=== PATIENT | male | born 1940 | race Caucasian/White ===

== ENCOUNTER 2018-08-31 09:26 | Day surgery (SDC) | payer MEDICARE, BC ==
[~2018-08-31 09:26] MED LIST: DEXAMETHASONE SOD PHOSPHATE 10 MG/ML 1 ML VIAL IV ONE; HYDROmorphone 0.5 MG/0.5 ML SYRINGE IVP PRN; LACTATED RINGERS 1,000 ML IV SCH; LIDOCAINE 1% 20 ML VIAL (10MG/ML) FOR IV START INTRADERMA PRN; ONDANSETRON 4 MG/2 ML VIAL IVP ONE; SCOPOLAMINE 1.5MG/72HR PATCH TRANSDERM ONE
[2018-08-31 09:55] VITALS: RESP 18; TEMP 97.5
[2018-08-31 10:07] LABS: Glucose,Whole Blood 144 mg/dL (75-99)
[2018-08-31] MEDS ORDERED: LIDOCAINE 1% INJ 10MG/ML (20 ML MDV) ONE (11:06)
[2018-08-31] MEDS ORDERED: PROPOFOL 10 MG/ML 20 ML VIAL IV ONE (11:06)
--- NOTE | 2018-08-31 11:11 | P.GSHP ---
History of Present Illness H&P Date: 08/31/18 Chief Complaint: GI bleed This is a 78-year-old male who presents today for colonoscopy. Patient's had issues with rectal bleeding. Past Medical History Past Medical History: Cancer, Diabetes Mellitus, Hyperlipidemia, Hypertension Additional Past Medical History / Comment(s): BASAL CELL History of Any Multi-Drug Resistant Organisms: None Reported Past Surgical History: Hernia Repair Additional Past Surgical History / Comment(s): RIGHT EAR & RIGHT KNEE BASAL CELL. PILONIDAL CYST. UMB HERNIA Past Anesthesia/Blood Transfusion Reactions: No Reported Reaction Past Psychological History: No Psychological Hx Reported Smoking Status: Former smoker Past Alcohol Use History: None Reported Additional Past Alcohol Use History / Comment(s): SMOKED FOR ABOUT 10 YRS, LESS THAN .5 PPD. QUIT ABOUT 30 YRS. Past Drug Use History: None Reported Medications and Allergies Home Medications Medication Instructions Recorded Confirmed Type Irbesartan [Avapro] 150 mg PO BID 08/29/18 08/29/18 History Magnesium 400 mg PO DAILY 08/29/18 08/29/18 History Metoprolol Tartrate 25 mg PO BID 08/29/18 08/29/18 History Multivitamins, Thera [Multivitamin 1 tab PO DAILY 08/29/18 08/29/18 History (formulary)] [place]-3 Fatty Acids/Fish Oil [Fish 1 cap PO DAILY 08/29/18 08/29/18 History Oil 1,000 mg Softgel] Simvastatin [Zocor] 10 mg PO Q48H 08/29/18 08/29/18 History Vitamin E (Dl,Tocopheryl Acet) 400 mg PO Q48H 08/29/18 08/29/18 History [Vitamin E] amLODIPine [Norvasc] 5 mg PO BID 08/29/18 08/29/18 History cloNIDine 0.1 MG/24HR PATCH 0.1 mg TOPICAL TAY 08/29/18 08/31/18 History [Catapres-TTS] clonazePAM [KlonoPIN] 0.5 mg PO HS PRN 08/29/18 08/29/18 History hydrALAZINE HCL 10 mg PO BID 08/29/18 08/29/18 History metFORMIN HCL 500 mg PO BID 08/29/18 08/29/18 History Allergies Allergy/AdvReac Type Severity Reaction Status Date / Time No Known Allergies Allergy Verified 08/29/18 12:52 Surgical - Exam Vital Signs Temp Pulse Resp BP Pulse Ox 97.5 F L 81 18 177/77 97 08/31/18 09:53 08/31/18 09:53 08/31/18 09:53 08/31/18 09:53 08/31/18 09:53 - General well developed, no distress - Eyes PERRL - ENT normal pinna - Neck no masses - Respiratory normal expansion - Cardiovascular Rhythm: regular - Abdomen Abdomen: soft, non tender Results - Labs Abnormal Lab Results - Last 24 Hours (Table) 08/31/18 Range/Units 09:59 POC Glucose (mg/dL) 144 H (75-99) mg/dL Assessment and Plan Assessment: GI bleed. We'll perform colonoscopy.
--- NOTE | 2018-08-31 11:24 | P.OP ---
Date of Procedure: 08/31/18 Preoperative Diagnosis: GI bleed Postoperative Diagnosis: Diverticulosis Internal hemorrhoids Procedure(s) Performed: Colonoscopy Anesthesia: MAC Surgeon: Lloyd Levy Pathology: none sent Condition: stable Disposition: PACU Description of Procedure: Patient's placed on the endoscopy table in the lateral position. He received IV sedation. Digital rectal exam was performed. The prostate was symmetrical. There was some minimal internal hemorrhoids. Flexible colonoscope was then placed patient anus passed throughout the entire colon. The ileocecal valve was visualized. Cecum, ascending and transverse colon appeared normal. In the descending and sigmoid colon there is mild diverticular changes. There is no evidence of any diverticulitis or diverticular bleeding. The scope was then brought back the rectum and this appeared normal. Scope was withdrawn for patient. There is no evidence of any active GI bleed. It is presumed in the patient's previous GI bleed was due to internal hemorrhoids.
[2018-08-31 11:52] VITALS: BP 133/70; PULSE 56
[2018-08-31 12:20] LABS: Glucose,Whole Blood 112 mg/dL (75-99)
== END 2018-08-31 12:40 | disposition home or self-care (01) ==
LOC: ORWHC2ENDO 09:26
PROVIDERS: ATTEND Surgery
DX: K57.30 Diverticulosis of large intestine without perforation or abscess without bleeding (principal); E11.9 Type 2 diabetes mellitus without complications; E78.5 Hyperlipidemia, unspecified; K64.8 Other hemorrhoids; Z87.891 Personal history of nicotine dependence; I10 Essential (primary) hypertension; Z79.84 Long term (current) use of oral hypoglycemic drugs; Z79.899 Other long term (current) drug therapy
CPT/HCPCS: 45378; J2001; J2704

== ENCOUNTER 2022-08-09 15:07 | Inpatient (IN) | payer MEDICARE, BC ==
[2022-08-09] MEDS ORDERED: methylPREDNISolone SOD SUCCI 125 MG/2 ML VIAL IV STA (15:23)
[2022-08-09] MEDS ORDERED: IPRATROPIUM-ALBUTEROL 3 ML NEB INHALATION STA (15:23)
--- NOTE | 2022-08-09 15:28 | ED ---
General Adult HPI - General Chief complaint: Shortness of Breath Stated complaint: Dyspnea Time Seen by Provider: 08/09/22 15:12 Source: patient, family, RN notes reviewed Mode of arrival: wheelchair Limitations: physical limitation - History of Present Illness Initial comments: Patient is a pleasant 82-year-old male presenting to the emergency department with difficulty breathing. Onset of symptoms was a couple weeks ago, progressively worsening. Patient does have cough. Patient did cough up some blood-tinged sputum today. 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 Patient states his breathing is worse than normal. No chest pain. No fever today. Patient did have fever yesterday. - Related Data Home Medications Medication Instructions Recorded Confirmed Magnesium 400 mg PO DAILY@0800 08/29/18 08/09/22 Metoprolol Tartrate 25 mg PO BID@08/29/18 08/09/22 Vitamin E (Dl,Tocopheryl Acet) 400 mg PO DAILY@0800 08/29/18 08/09/22 [Vitamin E] amLODIPine [Norvasc] 5 mg PO BID@08/29/18 08/09/22 cloNIDine 0.1 MG/24HR PATCH 0.1 mg TOPICAL TAY@199908/29/18 08/09/22 [Catapres-TTS] clonazePAM [KlonoPIN] 0.5 mg PO HS@1999 PRN 08/29/18 08/09/22 Alpha Lipoic Acid 200 mg PO DAILY@0808/09/22 08/09/22 Ascorbic Acid [Vitamin C] 1,500 mg PO DAILY@79908/09/22 08/09/22 Cholecalciferol [Vitamin D3 (125 125 mcg PO DAILY@79908/09/22 08/09/22 Mcg = 5000 Iu)] Cyanocobalamin (Vitamin B-12) 3,000 mcg PO DAILY@0800 08/09/22 08/09/22 [Vitamin B-12] Fish Oil/Dha/Epa [Fish Oil 1,200 1 cap PO DAILY@0800 08/09/22 08/09/22 mg Fish Oil] Garlic 1,000 mg PO DAILY@0800 08/09/22 08/09/22 Hydrocortisone Cream 1 applic TOPICAL BID PRN 08/09/22 08/09/22 [Hydrocortisone 2.5% Cream] Irbesartan 300 mg PO DAILY@0800 08/09/22 08/09/22 Rosuvastatin [Crestor] 20 mg PO TAY@0808/09/22 08/09/22 Saw [place] 450mg 450 mg PO DAILY@0808/09/22 08/09/22 Ubidecarenone [Coenzyme Q10] 200 mg PO DAILY@0808/09/22 08/09/22 hydrALAZINE HCL [Apresoline] 50 mg PO BID@08,199908/09/22 08/09/22 hydroCHLOROthiazide 12.5 mg PO DAILY@0808/09/22 08/09/22 metFORMIN HCL ER [Glucophage XR] 1,500 mg PO W/SUPPER 08/09/22 08/09/22 Allergies Allergy/AdvReac Type Severity Reaction Status Date / Time No Known Allergies Allergy Verified 08/09/22 16:46 Review of Systems ROS Statement: Those systems with pertinent positive or pertinent negative responses have been documented in the HPI. ROS Other: All systems not noted in ROS Statement are negative. Constitutional: Reports: as per HPI Eyes: Denies: eye pain ENT: Denies: ear pain Respiratory: Reports: as per HPI, cough, dyspnea Cardiovascular: Denies: chest pain Endocrine: Reports: fatigue Gastrointestinal: Denies: abdominal pain Genitourinary: Denies: dysuria Musculoskeletal: Denies: back pain Skin: Denies: rash Neurological: Denies: weakness Past Medical History Past Medical History: Cancer, Diabetes Mellitus, Hyperlipidemia, Hypertension Additional Past Medical History / Comment(s): BASAL CELL ASBESTOSIS History of Any Multi-Drug Resistant Organisms: None Reported Past Surgical History: Hernia Repair Additional Past Surgical History / Comment(s): RIGHT EAR & RIGHT KNEE BASAL CELL. PILONIDAL CYST. UMB HERNIA Past Anesthesia/Blood Transfusion Reactions: No Reported Reaction Past Psychological History: No Psychological Hx Reported Past Alcohol Use History: None Reported Past Drug Use History: None Reported General Exam Limitations: no limitations General appearance: alert, in no apparent distress Head exam: Present: normocephalic Eye exam: Present: normal appearance Neck exam: Present: normal inspection Respiratory exam: Present: respiratory distress, wheezes, decreased breath sounds Cardiovascular Exam: Present: tachycardia GI/Abdominal exam: Present: soft. Absent: tenderness Extremities exam: Present: normal inspection. Absent: pedal edema, calf tenderness Neurological exam: Present: alert Psychiatric exam: Present: normal affect, normal mood Skin exam: Present: normal color Course Vital Signs 08/09/22 08/09/22 08/09/22 15:08 15:25 15:29 Temperature 97.9 F Pulse Rate 104 H 88 Respiratory 26 H Rate Blood Pressure 186/88 O2 Sat by Pulse 54 L Oximetry Fraction of 100 Inspired Oxygen (FIO2) 08/09/22 08/09/22 08/09/22 15:37 15:45 16:15 Temperature Pulse Rate 90 90 83 Respiratory 30 H 31 H Rate Blood Pressure 150/71 136/64 O2 Sat by Pulse 95 96 Oximetry Fraction of Inspired Oxygen (FIO2) 08/09/22 17:04 Temperature Pulse Rate Respiratory Rate Blood Pressure O2 Sat by Pulse Oximetry Fraction of 50 Inspired Oxygen (FIO2) EKG Findings - EKG Comments: EKG Findings:: Sinus rhythm 99. MD 144. QRS 86. QT 342. QTC 398. Normal axis. Normal QRS. No acute ST change. EKG is interpreted by myself. - EKG Results: EKG: interpreted by DALILA Medical Decision Making - Medical Decision Making Patient reevaluated and significantly improved with BiPAP. Patient and family updated on results and plan. Case was discussed with Dr. Cerda, who will admit covering hospital call. - Lab Data Result diagrams: 08/09/22 15:31 08/09/22 15:31 Lab Results 08/09/22 08/09/22 08/09/22 Range/Units 15:31 15:31 15:31 WBC 9.5 (3.8-10.6) k/uL RBC 4.98 (4.30-5.90) m/uL Hgb 14.9 (13.0-17.5) gm/dL Hct 44.2 (39.0-53.0) % MCV 88.8 (80.0-100.0) fL MCH 29.8 (25.0-35.0) pg MCHC 33.6 (31.0-37.0) g/dL RDW 13.0 (11.5-15.5) % Plt Count 159 (150-450) k/uL MPV 9.0 Neutrophils % 82 % Lymphocytes % 9 % Monocytes % 7 % Eosinophils % 1 % Basophils % 1 % Neutrophils # 7.7 (1.3-7.7) k/uL Lymphocytes # 0.8 L (1.0-4.8) k/uL Monocytes # 0.7 (0-1.0) k/uL Eosinophils # 0.0 (0-0.7) k/uL Basophils # 0.1 (0-0.2) k/uL PT 10.5 (9.0-12.0) sec INR 1.0 (<1.2) APTT 23.0 (22.0-30.0) sec D-Dimer 1.11 H (<0.60) mg/L FEU Sodium 135 L (137-145) mmol/L Potassium 4.0 (3.5-5.1) mmol/L Chloride 100 (98-107) mmol/L Carbon Dioxide 22 (22-30) mmol/L Anion Gap 13 mmol/L BUN 15 (9-20) mg/dL Creatinine 0.83 (0.66-1.25) mg/dL Est GFR (CKD-EPI)AfAm >90 (>60 ml/min/1.73 sqM) Est GFR (CKD-EPI)NonAf 83 (>60 ml/min/1.73 sqM) Glucose 248 H (74-99) mg/dL Plasma Lactic Acid Leonides (0.7-2.0) mmol/L Calcium 8.8 (8.4-10.2) mg/dL Total Bilirubin 1.7 H (0.2-1.3) mg/dL AST 45 (17-59) U/L ALT 34 (4-49) U/L Alkaline Phosphatase 129 H (38-126) U/L Troponin I (0.000-0.034) ng/mL Total Protein 7.5 (6.3-8.2) g/dL Albumin 4.8 (3.5-5.0) g/dL Coronavirus (PCR) (Not Detectd) Influenza Type A RNA (Not Detectd) Influenza Type B (PCR) (Not Detectd) 08/09/22 08/09/22 08/09/22 Range/Units 15:31 15:31 15:31 WBC (3.8-10.6) k/uL RBC (4.30-5.90) m/uL Hgb (13.0-17.5) gm/dL Hct (39.0-53.0) % MCV (80.0-100.0) fL MCH (25.0-35.0) pg MCHC (31.0-37.0) g/dL RDW (11.5-15.5) % Plt Count (150-450) k/uL MPV Neutrophils % % Lymphocytes % % Monocytes % % Eosinophils % % Basophils % % Neutrophils # (1.3-7.7) k/uL Lymphocytes # (1.0-4.8) k/uL Monocytes # (0-1.0) k/uL Eosinophils # (0-0.7) k/uL Basophils # (0-0.2) k/uL PT (9.0-12.0) sec INR (<1.2) APTT (22.0-30.0) sec D-Dimer (<0.60) mg/L FEU Sodium (137-145) mmol/L Potassium (3.5-5.1) mmol/L Chloride (98-107) mmol/L Carbon Dioxide (22-30) mmol/L Anion Gap mmol/L BUN (9-20) mg/dL Creatinine (0.66-1.25) mg/dL Est GFR (CKD-EPI)AfAm (>60 ml/min/1.73 sqM) Est GFR (CKD-EPI)NonAf (>60 ml/min/1.73 sqM) Glucose (74-99) mg/dL Plasma Lactic Acid [place] 3.2 H* (0.7-2.0) mmol/L Calcium (8.4-10.2) mg/dL Total Bilirubin (0.2-1.3) mg/dL AST (17-59) U/L ALT (4-49) U/L Alkaline Phosphatase (38-126) U/L Troponin I <0.012 (0.000-0.034) ng/mL Total Protein (6.3-8.2) g/dL Albumin (3.5-5.0) g/dL Coronavirus (PCR) (Not Detectd) Influenza Type A RNA Not Detected (Not Detectd) Influenza Type B (PCR) Not Detected (Not Detectd) 08/09/22 Range/Units 15:31 WBC (3.8-10.6) k/uL RBC (4.30-5.90) m/uL Hgb (13.0-17.5) gm/dL Hct (39.0-53.0) % MCV (80.0-100.0) fL MCH (25.0-35.0) pg MCHC (31.0-37.0) g/dL RDW (11.5-15.5) % Plt Count (150-450) k/uL MPV Neutrophils % % Lymphocytes % % Monocytes % % Eosinophils % % Basophils % % Neutrophils # (1.3-7.7) k/uL Lymphocytes # (1.0-4.8) k/uL Monocytes # (0-1.0) k/uL Eosinophils # (0-0.7) k/uL Basophils # (0-0.2) k/uL PT (9.0-12.0) sec INR (<1.2) APTT (22.0-30.0) sec D-Dimer (<0.60) mg/L FEU Sodium (137-145) mmol/L Potassium (3.5-5.1) mmol/L Chloride (98-107) mmol/L Carbon Dioxide (22-30) mmol/L Anion Gap mmol/L BUN (9-20) mg/dL Creatinine (0.66-1.25) mg/dL Est GFR (CKD-EPI)AfAm (>60 ml/min/1.73 sqM) Est GFR (CKD-EPI)NonAf (>60 ml/min/1.73 sqM) Glucose (74-99) mg/dL Plasma Lactic Acid [place] (0.7-2.0) mmol/L Calcium (8.4-10.2) mg/dL Total Bilirubin (0.2-1.3) mg/dL AST (17-59) U/L ALT (4-49) U/L Alkaline Phosphatase (38-126) U/L Troponin I (0.000-0.034) ng/mL Total Protein (6.3-8.2) g/dL Albumin (3.5-5.0) g/dL Coronavirus (PCR) Detected A (Not Detectd) Influenza Type A RNA (Not Detectd) Influenza Type B (PCR) (Not Detectd) - Radiology Data Radiology results: report reviewed (CT chest shows extensive pulmonary infiltrates, nonspecific. Pulmonary emphysema. No pulmonary embolism.) Interpreted by me: Chest x-ray shows severe pulmonary interstitial changes. Critical Care Time Critical Care Time: Yes Total Critical Care Time: 33 Disposition Clinical Impression: COVID-19, Respiratory failure Disposition: ADMITTED IP TO THIS HOSP Is patient prescribed a controlled substance at d/c from ED?: No Referrals: Dave Rosas MD [Primary Care Provider] - 1-2 days Time of Disposition: 17:57
[2022-08-09 15:46] LABS: Basophils # (A) 0.1 k/uL (0-0.2); Basophils % (A) 1 %; Eosinophils % (A) 1 %; HCT 44.2 % (39.0-53.0); HGB 14.9 gm/dL (13.0-17.5); Lymphocytes # (A) 0.8 k/uL (1.0-4.8); Lymphocytes % (A) 9 %; MCH 29.8 pg (25.0-35.0); MCHC 33.6 g/dL (31.0-37.0); MCV 88.8 fL (80.0-100.0); Monocytes # (A) 0.7 k/uL (0-1.0); Monocytes % (A) 7 %; Neutrophils # (A) 7.7 k/uL (1.3-7.7); Neutrophils % (A) 82 %; Platelet Count 159 k/uL (150-450); RBC 4.98 m/uL (4.30-5.90); WBC 9.5 k/uL (3.8-10.6)
[2022-08-09 15:59] LABS: ALT 34 U/L (4-49); AST 45 U/L (17-59); African American GFR (CKD) >90 (>60 ml/min/1.73 sqM); Albumin 4.8 g/dL (3.5-5.0); Alkaline Phosphatase 129 U/L (38-126); Anion Gap 13 mmol/L; Blood Urea Nitrogen 15 mg/dL (9-20); Calcium 8.8 mg/dL (8.4-10.2); Carbon Dioxide 22 mmol/L (22-30); Chloride 100 mmol/L (98-107); Glucose 248 mg/dL (74-99); Non-African American GFR(CKD) 83 (>60 ml/min/1.73 sqM); Sodium 135 mmol/L (137-145); Total Bilirubin 1.7 mg/dL (0.2-1.3); Total Protein 7.5 g/dL (6.3-8.2)
[2022-08-09 16:01] LABS: Prothrombin Time 10.5 sec (9.0-12.0)
--- NOTE | 2022-08-09 16:09 | XR ---
EXAMINATION TYPE: XR chest 1V portable DATE OF EXAM: 08/09/2022 COMPARISON: 07/12/2011 HISTORY: Short of breath TECHNIQUE: Single view FINDINGS: There is coarse interstitial extensive infiltrate in both lungs. Heart is top normal in siz e. There are chest leads. No pleural effusion. Mediastinum appears normal. IMPRESSION: There is moderately severe pulmonary interstitial edema which is new compared to old exam and could be acute pneumonia or acute heart failure.
--- NOTE | 2022-08-09 17:16 | CT ---
EXAMINATION TYPE: CT angio chest DATE OF EXAM: 08/09/2022 COMPARISON: 01/15/2010 HISTORY: dyspnea CT DLP: 396 mGycm Automated exposure control for dose reduction was used. CONTRAST: Performed with IV Contrast, patient injected with 100ML mL of Isovue 370. There are Three-D postprocessed images. There is some pulmonary emphysema. There is coarse interstitial extensive infiltrates in both lungs. Heart is slightly enlarged. No pericardial effusion. There are bilateral bronchial and mediastinal ly mph nodes up to 1.5 cm. Thoracic aorta is intact. No aneurysm. No dissection. No evidence of filling defect in the pulmonary arteries. The thoracic spine is intact. No compression fracture. Sternum is intact. IMPRESSION: Extensive pulmonary infiltrates are nonspecific. Pulmonary emphysema. No evidence of pulmonary embolism. Mediastinal and peribronchial adenopathy appear new compared to th e old exam. Pulmonary infiltrates appear essentially new compared to old exam.
[2022-08-09] MEDS ORDERED: NALOXONE 0.4 MG/ML 1 ML VIAL IV PRN (17:58)
[2022-08-09] MEDS ORDERED: ALBUTEROL HFA INHALER INHALATION PRN (18:00)
[2022-08-09] MEDS ORDERED: DEXTROSE 50% SYRINGE 50 ML IVP PRN ×2 (18:51)
[2022-08-09] MEDS: CHOLECALCIFEROL 125 MCG (5000 IU) TABLET PO SCH (18:57)
[2022-08-09] MEDS: ZINC SULFATE 220 MG CAP PO SCH (18:57)
[2022-08-09] MEDS: ASCORBIC ACID 500 MG TAB PO SCH (18:57)
[2022-08-09] MEDS: DEXAMETHASONE SOD PHOSPHATE 10 MG/ML 1 ML VIAL IVP SCH (18:57)
[2022-08-09] MEDS: SODIUM CHLORIDE 0.9% 1,000 ML IV SCH (18:58)
--- NOTE | 2022-08-09 19:04 | P.HPIM ---
History of Present Illness H&P Date: 08/09/22 Patient is an 82-year-old male for history of asbestosis, diabetes mellitus type 2, hypertension, and dyslipidemia who presented to the ER with complaints of shortness of breath. On arrival to the ER and was found to have significant vital sign derangement with a pulse of 104, respiratory rate 26, blood pressure 186/88, and room air pulse ox of 54. He was placed on BiPAP and had an improvement in FiO2 to 95%. Laboratory analysis was remarkable for mildly elevated d-dimer of 1.11, sodium 135, glucose 248, lactic acid 3.2, bilirubin 1.7, and COVID-19 testing was positive. CTA chest demonstrated extensive pulmonary infiltrates with pulmonary emphysema. Patient seen and examined at bedside with sons present. He reports that he has not been feeling well for the last 2 weeks with some progressive shortness of breath. He states over the last 3 days he started having fevers up a T-max of 101.7 on temporal scanner. He reports that today he began coughing up blood. It initially began with shortness of breath and then a nonproductive cough. He has not ate anything in the last 3 days and his appetite has been poor for the last 1 week. He reports feeling very fatigued. He denies any muscle cramping. No nausea, vomiting, diarrhea. He reports he has a history of asbestosis which was diagnosed back in 2006 or 8 by his primary care physician secondary to seeing scarring on his lungs. 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 He has not been seeing a ostomy nurse, he has had no biopsies performed, he does not take any bronchodilators on a daily basis. He reports he is at his sister's last week and was talking to some people that were just getting over cold. He has not received any COVID-19 vaccinations. Sons at stated they would not want him to be on Remdesivir, but are asking about ivermectin. Pertinent positives and negatives as discussed in HPI, a complete review of systems was performed and all other systems are negative. Vital signs reviewed General: nontoxic, mild distress, appears at stated age Derm: warm, dry Head: atraumatic, normocephalic, symmetric Eyes: EOMI, no lid lag, anicteric sclera, pupils equal round reactive to light ENT: Nose and ears atraumatic Neck: No thyromegaly, no cervical lymphadenopathy, trachea midline, supple Mouth: no lip lesion, mucus membranes dry Cardiovascular: S1S2 reg, no murmur, positive posterior tibial pulse bilateral, no edema, capillary refill less than 2 seconds Lungs:course bs bilateral, no rhonchi, no rales, no wheeze, no accessory muscle use, on Bipap, 3 word conversational dyspnea Abdominal: soft, nontender to palpation, no guarding, no appreciable organomegaly, normal bowel sounds Ext: no gross muscle atrophy, muscle strength 5 out of 5 in all 4 extremities, no contractures Neuro: CN II-XII grossly intact, light touch intact all 4 extremities, finger to nose within normal limits, Psych: Alert, oriented, appropriate affect Assessment/Plan: COVID-19 Pneumonia Acute Hypoxic respiraotry failure Hx Asbestosis - dexamethasone - combivent - check ferritin, CRP, ESR -Check pro calcitonin due to duration of symptoms -Repeat chest x-ray in a.m. -Consult pulmonary: With Dr. Berumen will change patient over to AirVO and a dmit to ICU Lactic acidosis -IV fluids - follow trend DM 2 with hyperglycemia - hold metformin - check A1C - SSI, levemir - follow Accucheck Resistant HTN - catapres patch - norvasc, hydralazine, ARB, BB The patient is admitted with an anticipated greater than 2 midnight stay for evaluation of COVID. Surrogate decision-maker: luis eduardo CODE STATUS:undetermined- patient said no to intubation, sons want to discuss further. DVT prophylaxis: Lovenox Discussed with: Patient, nursing, ED, Physician, Dr. Berumen Anticipated discharge date: pending clinical course Anticipated discharge place: pending clinical course A total of 75 minutes was spent on the care of this complex patient more than 50% of the time was spent in counseling and care coordination. Past Medical History Past Medical History: Cancer, Diabetes Mellitus, Hyperlipidemia, Hypertension Additional Past Medical History / Comment(s): BASAL CELL ASBESTOSIS History of Any Multi-Drug Resistant Organisms: None Reported Past Surgical History: Hernia Repair Additional Past Surgical History / Comment(s): RIGHT EAR & RIGHT KNEE BASAL CELL. PILONIDAL CYST. UMB HERNIA Past Anesthesia/Blood Transfusion Reactions: No Reported Reaction Past Psychological History: No Psychological Hx Reported Smoking Status: Never smoker Past Alcohol Use History: Rare Past Drug Use History: None Reported - Past Family History family Additional Family Medical History / Comment(s): unable to obtain due to pt on b ipap and increased work of breathing Medications and Allergies Home Medications Medication Instructions Recorded Confirmed Type Magnesium 400 mg PO DAILY@0800 08/29/18 08/09/22 History Metoprolol Tartrate 25 mg PO BID@799,199908/29/18 08/09/22 History Vitamin E (Dl,Tocopheryl Acet) 400 mg PO DAILY@0808/29/18 08/09/22 History [Vitamin E] amLODIPine [Norvasc] 5 mg PO BID@799,199908/29/18 08/09/22 History cloNIDine 0.1 MG/24HR PATCH 0.1 mg TOPICAL TAY@199908/29/18 08/09/22 History [Catapres-TTS] clonazePAM [KlonoPIN] 0.5 mg PO HS@1999 PRN 08/29/18 08/09/22 History Alpha Lipoic Acid 200 mg PO DAILY@79908/09/22 08/09/22 History Ascorbic Acid [Vitamin C] 1,500 mg PO DAILY@79908/09/22 08/09/22 History Cholecalciferol [Vitamin D3 (125 125 mcg PO DAILY@79908/09/22 08/09/22 History Mcg = 5000 Iu)] Cyanocobalamin (Vitamin B-12) 3,000 mcg PO DAILY@79908/09/22 08/09/22 History [Vitamin B-12] Fish Oil/Dha/Epa [Fish Oil 1,200 1 cap PO DAILY@79908/09/22 08/09/22 History mg Fish Oil] Garlic 1,000 mg PO DAILY@0808/09/22 08/09/22 History Hydrocortisone Cream 1 applic TOPICAL BID PRN 08/09/22 08/09/22 History [Hydrocortisone 2.5% Cream] Irbesartan 300 mg PO DAILY@79908/09/22 08/09/22 History Rosuvastatin [Crestor] 20 mg PO TAY@79908/09/22 08/09/22 History Saw [place] 450mg 450 mg PO DAILY@0808/09/22 08/09/22 History Ubidecarenone [Coenzyme Q10] 200 mg PO DAILY@0808/09/22 08/09/22 History hydrALAZINE HCL [Apresoline] 50 mg PO BID@0800,199908/09/22 08/09/22 History hydroCHLOROthiazide 12.5 mg PO DAILY@0800 08/09/22 08/09/22 History metFORMIN HCL ER [Glucophage XR] 1,500 mg PO W/SUPPER 08/09/22 08/09/22 History Allergies Allergy/AdvReac Type Severity Reaction Status Date / Time No Known Allergies Allergy Verified 08/09/22 16:46 Physical Exam Osteopathic Statement: *. No significant issues noted on an osteopathic structural exam other than those noted in the History and Physical/Consult. Vitals: Vital Signs Temp Pulse Resp BP Pulse Ox FiO2 08/09/22 17:04 50 08/09/22 16:15 83 31 H 136/64 96 08/09/22 15:45 90 30 H 150/71 95 08/09/22 15:37 90 08/09/22 15:29 88 08/09/22 15:25 100 08/09/22 15:08 97.9 F 104 H 26 H 186/88 54 L Intake and Output 08/09/22 08/09/22 08/09/22 06:59 14:59 22:59 Other: Weight 80.739 kg Results CBC & Chem 7: 08/09/22 15:31 08/09/22 15:31 Labs: Abnormal Lab Results - Last 24 Hours (Table) 08/09/22 08/09/22 08/09/22 Range/Units 15:31 15:31 15:31 Lymphocytes # 0.8 L (1.0-4.8) k/uL D-Dimer 1.11 H (<0.60) mg/L FEU Sodium 135 L (137-145) mmol/L Glucose 248 H (74-99) mg/dL Plasma Lactic Acid [place] (0.7-2.0) mmol/L Total Bilirubin 1.7 H (0.2-1.3) mg/dL Alkaline Phosphatase 129 H (38-126) U/L Coronavirus (PCR) (Not Detectd) 08/09/22 08/09/22 Range/Units 15:31 15:31 Lymphocytes # (1.0-4.8) k/uL D-Dimer (<0.60) mg/L FEU Sodium (137-145) mmol/L Glucose (74-99) mg/dL Plasma Lactic Acid [place] 3.2 H* (0.7-2.0) mmol/L Total Bilirubin (0.2-1.3) mg/dL Alkaline Phosphatase (38-126) U/L Coronavirus (PCR) Detected A (Not Detectd)
[2022-08-09] MEDS: ALBUTEROL HFA INHALER INHALATION SCH ×2 (19:49→20:04)
[2022-08-09 19:52] LABS: C Reactive Protein 6.8 mg/dL (<1.0)
[2022-08-09 20:31] LABS: Glucose,Whole Blood 234 mg/dL (70-110)
[2022-08-09] MEDS ORDERED: INSULIN DETEMIR (LEVEMIR) 100 UNIT/ML SYR SQ SCH (21:00)
[2022-08-09] MEDS: METOPROLOL TARTRATE 25 MG TAB PO SCH (21:24)
[2022-08-09] MEDS: cloNIDine 0.1 MG/24HR PATCH TRANSDERM SCH (21:24)
[2022-08-09] MEDS: amLODIPine 5 MG TAB PO SCH (21:24)
[2022-08-09] MEDS: hydrALAZINE HCL 50 MG TAB PO SCH (21:25)
[2022-08-09] MEDS: INSULIN ASPART (NovoLOG) 100 UNIT/ML VIAL SQ SCH (21:25)
[2022-08-10 04:08] LABS: Basophils % (A) 0 %; Eosinophils % (A) 0 %; HGB 12.8 gm/dL (13.0-17.5); Lymphocytes # (A) 0.9 k/uL (1.0-4.8); Lymphocytes % (A) 15 %; MCH 29.7 pg (25.0-35.0); MCHC 32.9 g/dL (31.0-37.0); MCV 90.2 fL (80.0-100.0); Mean Platelet Volume 9.4; Monocytes # (A) 0.3 k/uL (0-1.0); Monocytes % (A) 6 %; Neutrophils # (A) 4.6 k/uL (1.3-7.7); Neutrophils % (A) 78 %; Platelet Count 143 k/uL (150-450); RBC 4.33 m/uL (4.30-5.90); RDW 12.9 % (11.5-15.5); WBC 5.9 k/uL (3.8-10.6)
[2022-08-10 04:20] LABS: Albumin 3.7 g/dL (3.5-5.0); C Reactive Protein 8.5 mg/dL (<1.0); Calcium 8.4 mg/dL (8.4-10.2); Magnesium 2.1 mg/dL (1.6-2.3); Potassium 4.2 mmol/L (3.5-5.1)
[2022-08-10 06:34] LABS: Glucose,Whole Blood 283 mg/dL (70-110)
[2022-08-10] MEDS: INSULIN ASPART (NovoLOG) 100 UNIT/ML VIAL SQ SCH ×4 (06:38→20:43)
[2022-08-10] MEDS: SODIUM CHLORIDE 0.9% 1,000 ML IV SCH (06:39)
[2022-08-10] MEDS ORDERED: INSULIN DETEMIR (LEVEMIR) 100 UNIT/ML SYR SQ STA (07:32)
[2022-08-10] MEDS: ALBUTEROL HFA INHALER INHALATION SCH ×4 (08:03→19:17)
[2022-08-10] MEDS: hydrALAZINE HCL 50 MG TAB PO SCH ×2 (08:37→20:42)
[2022-08-10] MEDS: amLODIPine 5 MG TAB PO SCH ×2 (08:37→20:42)
[2022-08-10] MEDS: LOSARTAN 50 MG TAB PO SCH (08:38)
[2022-08-10] MEDS: MAGNESIUM OXIDE 400 MG TAB PO SCH (08:38)
[2022-08-10] MEDS: hydroCHLOROthiazide 12.5 MG CAP PO SCH (08:38)
[2022-08-10] MEDS: METOPROLOL TARTRATE 25 MG TAB PO SCH ×2 (08:38→20:42)
[2022-08-10] MEDS: ZINC SULFATE 220 MG CAP PO SCH (08:39)
[2022-08-10] MEDS: DEXAMETHASONE SOD PHOSPHATE 10 MG/ML 1 ML VIAL IVP SCH (08:39)
[2022-08-10] MEDS: CHOLECALCIFEROL 125 MCG (5000 IU) TABLET PO SCH (08:39)
[2022-08-10] MEDS: ENOXAPARIN 40 MG/0.4 ML SYRINGE SQ SCH (08:39)
[2022-08-10] MEDS: ASCORBIC ACID 500 MG TAB PO SCH ×2 (08:39→20:42)
[2022-08-10] MEDS: CEFEPIME 2 GM in SODIUM CHLORIDE 0.9% 100 ML IVPB SCH ×2 (09:30→20:42)
--- NOTE | 2022-08-10 10:19 | P.PN ---
Subjective Progress Note Date: 08/10/22 Patient is an 82-year-old male for history of asbestosis, diabetes mellitus type 2, hypertension, and dyslipidemia who presented to the ER with complaints of shortness of breath. On arrival to the ER and was found to have significant vital sign derangement with a pulse of 104, respiratory rate 26, blood pressure 186/88, and room air pulse ox of 54. He was placed on BiPAP and had an improvement in FiO2 to 95%. Laboratory analysis was remarkable for mildly elevated d-dimer of 1.11, sodium 135, glucose 248, lactic acid 3.2, bilirubin 1.7, and COVID-19 testing was positive. CTA chest demonstrated extensive pulmonary infiltrates with pulmonary emphysema. He was admitted to the ICU and wa transitioned to [facility]. Patient seen and examined at bedside. He reports she feels much better than yesterday. He was able to eat last night and again this morning. Breathing is stable. No other complaints at this time. General: ill appearing, mild distress, appears at stated age Derm: warm, dry Head: atraumatic, normocephalic, symmetric Eyes: EOMI, no lid lag, anicteric sclera Mouth: no lip lesion, mucus membranes moist Cardiovascular: S1S2 reg, no murmur, positive posterior tibial pulse bilateral, Lungs: Decrease bs bilateral, no rhonchi, no rales , no accessory muscle use Abdominal: soft, nontender to palpation, no guarding, no appreciable organomegaly Ext: no gross muscle atrophy, no edema, no contractures Neuro: CN II-XI grossly intact, no focal neuro deficits Psych: Alert, oriented, appropriate affect Assessment/Plan: COVID-19 Pneumonia Acute Hypoxic respiraotry failure Hx Asbestosis - dexamethasone - Albuterol - Ferritin, CRP, ESR mildly elevated - Check pro calcitonin due to duration of symptoms - Follow CXR - Await pulmonary recs Lactic acidosis - resolved - stop IVF DM 2 with hyperglycemia - hold metformin - A1C 7.2 - SSI, levemir - follow Accucheck Resistant HTN - catapres patch - norvasc, hydralazine, ARB, BB DVT prophylaxis: Lovenox Discussed with: Patient, nursing Anticipated discharge date: pending clinical course Anticipated discharge place: pending clinical course A total of 25 minutes was spent on the care of this complex patient more than 50% of the time was spent in counseling and care coordination. Objective - Vital Signs Vital signs: Vital Signs Temp 98.1 F 08/10/22 04:00 Pulse 80 08/10/22 07:00 Resp 19 08/10/22 07:00 BP 142/82 08/10/22 07:00 Pulse Ox 93 L 08/10/22 08:04 FiO2 55 08/10/22 08:04 Intake & Output 08/09/22 08/10/22 08/10/22 18:59 06:59 18:59 Intake Total 915 75 Output Total 1400 200 Balance -485 -125 Weight 80.739 kg 78.7 kg Intake: IV 675 75 Sodium Chloride 0.9% 1, 675 75 000 ml @ 75 mls/hr IV . [id number] [facility] Rx#:[id number] Oral 240 Output: Urine 1400 200 Other: Voiding Method Urinal # Voids 0 1 - Labs CBC & Chem 7: 08/10/22 03:38 08/10/22 03:38 Labs: Abnormal Lab Results - Last 24 Hours (Table) 08/09/22 08/09/22 08/09/22 Range/Units 15:30 15:30 15:30 Hgb (13.0-17.5) gm/dL Plt Count (150-450) k/uL Lymphocytes # (1.0-4.8) k/uL D-Dimer (<0.60) mg/L FEU Sodium (137-145) mmol/L BUN (9-20) mg/dL Glucose (74-99) mg/dL POC Glucose (mg/dL) (70-110) mg/dL Hemoglobin A1c 7.2 H (0.0-6.0) % Plasma Lactic Acid Leonides (0.7-2.0) mmol/L Ferritin 391.0 H (22.0-322.0) ng/mL Total Bilirubin (0.2-1.3) mg/dL Alkaline Phosphatase (38-126) U/L C-Reactive Protein 6.8 H (<1.0) mg/dL Total Protein (6.3-8.2) g/dL Procalcitonin 0.15 H (0.02-0.09) ng/mL Coronavirus (PCR) (Not Detectd) 08/09/22 08/09/22 08/09/22 Range/Units 15:31 15:31 15:31 Hgb (13.0-17.5) gm/dL Plt Count (150-450) k/uL Lymphocytes # 0.8 L (1.0-4.8) k/uL D-Dimer 1.11 H (<0.60) mg/L FEU Sodium 135 L (137-145) mmol/L BUN (9-20) mg/dL Glucose 248 H (74-99) mg/dL POC Glucose (mg/dL) (70-110) mg/dL Hemoglobin A1c (0.0-6.0) % Plasma Lactic Acid Leonides (0.7-2.0) mmol/L Ferritin (22.0-322.0) ng/mL Total Bilirubin 1.7 H (0.2-1.3) mg/dL Alkaline Phosphatase 129 H (38-126) U/L C-Reactive Protein (<1.0) mg/dL Total Protein (6.3-8.2) g/dL Procalcitonin (0.02-0.09) ng/mL Coronavirus (PCR) (Not Detectd) 08/09/22 08/09/22 08/09/22 Range/Units 15:31 15:31 20:29 Hgb (13.0-17.5) gm/dL Plt Count (150-450) k/uL Lymphocytes # (1.0-4.8) k/uL D-Dimer (<0.60) mg/L FEU Sodium (137-145) mmol/L BUN (9-20) mg/dL Glucose (74-99) mg/dL POC Glucose (mg/dL) 234 H (70-110) mg/dL Hemoglobin A1c (0.0-6.0) % Plasma Lactic Acid Leonides 3.2 H* (0.7-2.0) mmol/L Ferritin (22.0-322.0) ng/mL Total Bilirubin (0.2-1.3) mg/dL Alkaline Phosphatase (38-126) U/L C-Reactive Protein (<1.0) mg/dL Total Protein (6.3-8.2) g/dL Procalcitonin (0.02-0.09) ng/mL Coronavirus (PCR) Detected A (Not Detectd) 08/10/22 08/10/22 08/10/22 Range/Units 03:38 03:38 03:38 Hgb 12.8 L (13.0-17.5) gm/dL Plt Count 143 L (150-450) k/uL Lymphocytes # 0.9 L (1.0-4.8) k/uL D-Dimer 1.20 H (<0.60) mg/L FEU Sodium 136 L (137-145) mmol/L BUN 23 H (9-20) mg/dL Glucose 359 H (74-99) mg/dL POC Glucose (mg/dL) (70-110) mg/dL Hemoglobin A1c (0.0-6.0) % Plasma Lactic Acid Leonides (0.7-2.0) mmol/L Ferritin 365.0 H (22.0-322.0) ng/mL Total Bilirubin (0.2-1.3) mg/dL Alkaline Phosphatase (38-126) U/L C-Reactive Protein 8.5 H (<1.0) mg/dL Total Protein 6.0 L (6.3-8.2) g/dL Procalcitonin (0.02-0.09) ng/mL Coronavirus (PCR) (Not Detectd) 08/10/22 Range/Units 06:33 Hgb (13.0-17.5) gm/dL Plt Count (150-450) k/uL Lymphocytes # (1.0-4.8) k/uL D-Dimer (<0.60) mg/L FEU Sodium (137-145) mmol/L BUN (9-20) mg/dL Glucose (74-99) mg/dL POC Glucose (mg/dL) 283 H (70-110) mg/dL Hemoglobin A1c (0.0-6.0) % Plasma Lactic Acid Leonides (0.7-2.0) mmol/L Ferritin (22.0-322.0) ng/mL Total Bilirubin (0.2-1.3) mg/dL Alkaline Phosphatase (38-126) U/L C-Reactive Protein (<1.0) mg/dL Total Protein (6.3-8.2) g/dL Procalcitonin (0.02-0.09) ng/mL Coronavirus (PCR) (Not Detectd)
--- NOTE | 2022-08-10 10:50 | XR ---
EXAMINATION TYPE: XR chest 1V portable DATE OF EXAM: 08/10/2022 COMPARISON: 08/09/2022 , 07/12/2011 INDICATION: Pneumonia TECHNIQUE: Single frontal view of the chest is obtained. FINDINGS: The heart size is normal. The pulmonary vasculature is normal. Patchy infiltrates through the peripheral left lung. Some mild infiltrates in the periphery of the ri ght lung. Correlate for atypical pneumonia. There may be slight improvement over the interval. Contin ued follow-up is recommended. Small 0.8 cm nodule is in the periphery of the right lower lung field present in 2010. IMPRESSION: 1. Patchy peripheral lung infiltrates. Correlate for atypical pneumonia. Continued follow-up is recom mended.
--- NOTE | 2022-08-10 10:54 | P.CNPUL ---
History of Present Illness Consult date: 08/10/22 Requesting physician: Rosibel Cerda Reason for consult: pneumonia Chief complaint: Fever, cough, shortness of breath History of present illness: This is an 82-year-old white male with history of type 2 diabetes, benign essential hypertension, dyslipidemia, patient is not COVID-19 vaccinated. Patient presented to the ER yesterday with 2-3 weeks history of cough, shortness of breath, and burning sensation in the chest. Apparently upon arrival to the ER, the patient was quite hypoxic, his chest x-ray and CT angiogram of the chest showed bilateral interstitial pneumonia/infiltrates. COVID-19 testing came back positive. Patient required placement on BiPAP initially, and he was later tr ansitioned to airvo at 55% FiO2 and 35 L flow. And he remains on that setting. Patient is feeling a bit better, nonetheless he continues to have intermittent cough and shortness of breath. His pro-calcitonin level was a bit elevated hence I recommended starting the patient empirically on cefepime. Although the presentation is clinically a presentation of COVID-19 pneumonia based on his symptoms and based on his chest x-ray and CT of the chest findings. Patient is already on the COVID-19 cocktail, patient and family declined the Remdesivir and requested ivermectin. CBC showed no evidence of leukocytosis. His d-dimer is 1.[address] angiogram of the chest. C-reactive protein is 8.5, LDH is 591. Review of Systems Constitutional: Low-grade fever, otherwise no aches and pains, and no weight. HEENT: Negative. Pulmonary: As noted in HPI. Hematologic: Negative. Cardiac: Negative. GI: Negative no nausea no vomiting no diarrhea. No melena no hematemesis. Genitourinary: Negative. Neurologic: Negative Psychiatric: Skin: Negative Endocrine history of diabetes. Past Medical History Past Medical History: Cancer, Diabetes Mellitus, Hyperlipidemia, Hypertension Additional Past Medical History / Comment(s): BASAL CELL ASBESTOSIS History of Any Multi-Drug Resistant Organisms: None Reported Past Surgical History: Hernia Repair Additional Past Surgical History / Comment(s): RIGHT EAR & RIGHT KNEE BASAL CELL. PILONIDAL CYST. UMB HERNIA Past Anesthesia/Blood Transfusion Reactions: No Reported Reaction Smoking Status: Former smoker - Past Family History family Additional Family Medical History / Comment(s): unable to obtain due to pt on bipap and increased work of breathing Medications and Allergies Home Medications Medication Instructions Recorded Confirmed Type Magnesium 400 mg PO DAILY@0808/29/18 08/09/22 History Metoprolol Tartrate 25 mg PO BID@799,199908/29/18 08/09/22 History Vitamin E (Dl,Tocopheryl Acet) 400 mg PO DAILY@0800 08/29/18 08/09/22 History [Vitamin E] amLODIPine [Norvasc] 5 mg PO BID@08/29/18 08/09/22 History cloNIDine 0.1 MG/24HR PATCH 0.1 mg TOPICAL TAY@199908/29/18 08/09/22 History [Catapres-TTS] clonazePAM [KlonoPIN] 0.5 mg PO HS@1999 PRN 08/29/18 08/09/22 History Alpha Lipoic Acid 200 mg PO DAILY@0808/09/22 08/09/22 History Ascorbic Acid [Vitamin C] 1,500 mg PO DAILY@79908/09/22 08/09/22 History Cholecalciferol [Vitamin D3 (125 125 mcg PO DAILY@0808/09/22 08/09/22 History Mcg = 5000 Iu)] Cyanocobalamin (Vitamin B-12) 3,000 mcg PO DAILY@0808/09/22 08/09/22 History [Vitamin B-12] Fish Oil/Dha/Epa [Fish Oil 1,200 1 cap PO DAILY@0808/09/22 08/09/22 History mg Fish Oil] Garlic 1,000 mg PO DAILY@0808/09/22 08/09/22 History Hydrocortisone Cream 1 applic TOPICAL BID PRN 08/09/22 08/09/22 History [Hydrocortisone 2.5% Cream] Irbesartan 300 mg PO DAILY@0808/09/22 08/09/22 History Rosuvastatin [Crestor] 20 mg PO TAY@79908/09/22 08/09/22 History Saw Neely 450mg 450 mg PO DAILY@0808/09/22 08/09/22 History Ubidecarenone [Coenzyme Q10] 200 mg PO DAILY@0808/09/22 08/09/22 History hydrALAZINE HCL [Apresoline] 50 mg PO BID@799,199908/09/22 08/09/22 History hydroCHLOROthiazide 12.5 mg PO DAILY@0808/09/22 08/09/22 History metFORMIN HCL ER [Glucophage XR] 1,500 mg PO W/SUPPER 08/09/22 08/09/22 History Allergies Allergy/AdvReac Type Severity Reaction Status Date / Time No Known Allergies Allergy Verified 08/09/22 16:46 Physical Exam Vitals: Vital Signs Temp Pulse Resp BP Pulse Ox FiO2 08/10/22 10:00 67 18 130/70 95 08/10/22 09:00 84 28 H 137/64 94 L 08/10/22 08:04 93 L 55 08/10/22 08:00 97.9 F 80 13 142/82 92 L 55 08/10/22 07:00 80 19 142/82 89 L 08/10/22 06:00 62 23 108/53 90 L 08/10/22 05:00 71 21 126/66 88 L 08/10/22 04:00 98.1 F 82 15 117/53 87 L 50 08/10/22 03:27 94 L 55 08/10/22 03:00 80 21 117/53 92 L 08/10/22 02:00 64 24 98/51 91 L 08/10/22 01:00 68 23 112/55 92 L 08/10/22 00:00 98.0 F 64 26 H 99/53 90 L 50 08/09/22 23:53 90 L 60 08/09/22 23:00 77 24 127/68 92 L 08/09/22 22:00 91 15 140/72 92 L 08/09/22 21:00 98.4 F 92 26 H 147/74 91 L 50 08/09/22 19:38 93 L 50 08/09/22 19:30 89 29 H 136/66 95 08/09/22 19:00 74 18 137/63 96 08/09/22 18:30 73 18 128/60 97 08/09/22 18:00 71 19 123/59 95 08/09/22 17:30 72 24 143/71 97 08/09/22 17:04 50 08/09/22 17:00 78 24 128/63 96 08/09/22 16:30 80 20 136/64 95 08/09/22 16:15 83 31 H 136/64 96 08/09/22 15:45 90 30 H 150/71 95 08/09/22 15:37 90 08/09/22 15:29 88 08/09/22 15:25 100 08/09/22 15:08 97.9 F 104 H 26 H 186/88 54 L Intake and Output 08/09/22 08/10/22 08/10/22 22:59 06:59 14:59 Intake Total 315 600 190 Output Total 1000 400 450 Balance -685 200 -260 Intake: IV 75 600 190 Sodium Chloride 0.9% 1, 75 600 190 000 ml @ 75 mls/hr IV . [id number] [facility] Rx#:[id number] Oral 240 Output: Urine 1000 400 450 Other: Voiding Method Urinal Urinal Urinal # Voids 1 0 1 # Bowel Movements 1 Weight 80.739 kg 78.7 kg Physical Exam: Revealed an 82-year-old white male, pleasant, in no distress on airvo Head: Atraumatic, normocephalic. HEENT:[Neck is supple.] [No neck masses.] [No thyromegaly.] [No JVD.] Chest: [Crackles at the bases no rhonchi and no wheezes Cardiac Exam: [Normal S1 and S2, no S3 gallop, no murmur.] Abdomen: [Soft, nontender, no megaly, no rebound, no guarding, normal bowel sounds.] Extremities: [No clubbing, no edema, no cyanosis.] Neurological Exam: [No focal neurologic deficit.] Alert and oriented 3. Psychiatric: Normal mood affect and normal mental status examination. Skin: No rashes. Results - Laboratory Findings CBC and BMP: 08/10/22 03:38 08/10/22 03:38 PT/INR, D-dimer PT 10.5 sec (9.0-12.0) 08/09/22 15:31 INR 1.0 (<1.2) 08/09/22 15:31 D-Dimer 1.20 mg/L FEU (<0.60) H 08/10/22 03:38 Abnormal lab findings: Abnormal Labs 08/09/22 08/09/22 08/09/22 15:30 15:30 15:30 Hgb Plt Count Lymphocytes # D-Dimer Sodium BUN Glucose POC Glucose (mg/dL) Hemoglobin A1c 7.2 H Plasma Lactic Acid Leonides Ferritin 391.0 H Total Bilirubin Alkaline Phosphatase C-Reactive Protein 6.8 H Total Protein Procalcitonin 0.15 H Coronavirus (PCR) 08/09/22 08/09/22 08/09/22 15:31 15:31 15:31 Hgb Plt Count Lymphocytes # 0.8 L D-Dimer 1.11 H Sodium 135 L BUN Glucose 248 H POC Glucose (mg/dL) Hemoglobin A1c Plasma Lactic Acid Leonides Ferritin Total Bilirubin 1.7 H Alkaline Phosphatase 129 H C-Reactive Protein Total Protein Procalcitonin Coronavirus (PCR) 08/09/22 08/09/22 08/09/22 15:31 15:31 20:29 Hgb Plt Count Lymphocytes # D-Dimer Sodium BUN Glucose POC Glucose (mg/dL) 234 H Hemoglobin A1c Plasma Lactic Acid Leonides 3.2 H* Ferritin Total Bilirubin Alkaline Phosphatase C-Reactive Protein Total Protein Procalcitonin Coronavirus (PCR) Detected A 08/10/22 08/10/22 08/10/22 03:38 03:38 03:38 Hgb 12.8 L Plt Count 143 L Lymphocytes # 0.9 L D-Dimer 1.20 H Sodium 136 L BUN 23 H Glucose 359 H POC Glucose (mg/dL) Hemoglobin A1c Plasma Lactic Acid Leonides Ferritin 365.0 H Total Bilirubin Alkaline Phosphatase C-Reactive Protein 8.5 H Total Protein 6.0 L Procalcitonin Coronavirus (PCR) 08/10/22 06:33 Hgb Plt Count Lymphocytes # D-Dimer Sodium BUN Glucose POC Glucose (mg/dL) 283 H Hemoglobin A1c Plasma Lactic Acid Leonides Ferritin Total Bilirubin Alkaline Phosphatase C-Reactive Protein Total Protein Procalcitonin Coronavirus (PCR) - Diagnostic Findings Chest x-ray: image reviewed (As noted in HPI bilateral infiltrates.) CT scan - chest: image reviewed (As noted in HPI diffuse bilateral infiltrates consistent with COVID-19 pneumonia) Assessment and Plan Assessment: Impression: Acute hypoxic respiratory failure secondary to COVID-19 pneumonia Type 2 diabetes. Benign essential hypertension. Dyslipidemia. 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 nonvaccinated Recommendation: Continue COVID-19 cocktail. Continue Decadron. Continue GI and DVT prophylaxis. Considering that the patient has slightly elevated pro calcitonin, we'll recommend empiric antibiotics/cefepime. Although clinically this is mostly a presentation of COVID-19 pneumonia. Resume home meds. Close monitoring of his sugars and treatment We will continue to follow. Patient is critically ill, and we'll continue to monitor in the ICU for now, may transfer to a regular medical floor if the patient continues to show slight improvement. Time with Patient: Greater than 30
[2022-08-10 11:44] LABS: Glucose,Whole Blood 261 mg/dL (70-110)
[2022-08-10 16:58] LABS: Glucose,Whole Blood 290 mg/dL (70-110)
[2022-08-10 20:02] LABS: Glucose,Whole Blood 257 mg/dL (70-110)
[2022-08-10] MEDS: INSULIN DETEMIR (LEVEMIR) 100 UNIT/ML SYR SQ SCH (20:42)
[2022-08-11 06:40] LABS: Glucose,Whole Blood 98 mg/dL (70-110)
[2022-08-11] MEDS: INSULIN ASPART (NovoLOG) 100 UNIT/ML VIAL SQ SCH ×4 (06:57→20:32)
[2022-08-11 07:39] LABS: HGB 13.1 gm/dL (13.0-17.5); MCH 29.6 pg (25.0-35.0); MCHC 32.7 g/dL (31.0-37.0); MCV 90.5 fL (80.0-100.0); Mean Platelet Volume 9.3; Platelet Count 175 k/uL (150-450); RBC 4.43 m/uL (4.30-5.90); WBC 13.9 k/uL (3.8-10.6)
[2022-08-11 07:51] LABS: African American GFR (CKD) >90 (>60 ml/min/1.73 sqM); Anion Gap 7 mmol/L; Blood Urea Nitrogen 23 mg/dL (9-20); Calcium 8.2 mg/dL (8.4-10.2); Carbon Dioxide 29 mmol/L (22-30); Chloride 106 mmol/L (98-107); Glucose 85 mg/dL (74-99); Non-African American GFR(CKD) 82 (>60 ml/min/1.73 sqM); Potassium 3.9 mmol/L (3.5-5.1); Sodium 142 mmol/L (137-145)
[2022-08-11] MEDS: DEXAMETHASONE SOD PHOSPHATE 10 MG/ML 1 ML VIAL IVP SCH (08:03)
[2022-08-11] MEDS: CHOLECALCIFEROL 125 MCG (5000 IU) TABLET PO SCH (08:03)
[2022-08-11] MEDS: ENOXAPARIN 40 MG/0.4 ML SYRINGE SQ SCH (08:03)
[2022-08-11] MEDS: ZINC SULFATE 220 MG CAP PO SCH (08:03)
[2022-08-11] MEDS: CEFEPIME 2 GM in SODIUM CHLORIDE 0.9% 100 ML IVPB SCH ×3 (08:04→23:30)
[2022-08-11] MEDS: MAGNESIUM OXIDE 400 MG TAB PO SCH (08:04)
[2022-08-11] MEDS: amLODIPine 5 MG TAB PO SCH ×2 (08:04→20:31)
[2022-08-11] MEDS: SODIUM CHLORIDE 0.9% 1,000 ML IV SCH (08:04)
[2022-08-11] MEDS: hydrALAZINE HCL 50 MG TAB PO SCH ×2 (08:04→20:31)
[2022-08-11] MEDS: hydroCHLOROthiazide 12.5 MG CAP PO SCH (08:04)
[2022-08-11] MEDS: ASCORBIC ACID 500 MG TAB PO SCH ×2 (08:04→20:31)
[2022-08-11] MEDS: LOSARTAN 50 MG TAB PO SCH (08:04)
[2022-08-11] MEDS: METOPROLOL TARTRATE 25 MG TAB PO SCH ×2 (08:04→20:31)
[2022-08-11] MEDS: ALBUTEROL HFA INHALER INHALATION SCH ×4 (08:11→19:01)
[2022-08-11] MEDS ORDERED: FUROSEMIDE 10 MG/ML 2 ML VIAL IV ONE (11:02)
--- NOTE | 2022-08-11 11:02 | P.PN ---
Subjective Progress Note Date: 08/11/22 Principal diagnosis: Acute hypoxic respiratory failure secondary to COVID-19 pneumonia This is an 82-year-old white male with history of type 2 diabetes, benign essential hypertension, dyslipidemia, patient is not COVID-19 vaccinated. Patient presented to the ER yesterday with 2-3 weeks history of cough, shortness of breath, and burning sensation in the chest. Apparently upon arrival to the ER, the patient was quite hypoxic, his chest x-ray and CT angiogram of the chest showed bilateral interstitial pneumonia/infiltrates. COVID-19 testing came back positive. Patient required placement on BiPAP initially, and he was later transitioned to airvo at 55% FiO2 and 35 L flow. And he remains on that setting. Patient is feeling a bit better, nonetheless he continues to have intermittent cough and shortness of breath. His pro-calcitonin level was a bit elevated hence I recommended starting the patient empirically on cefepime. Although the presentation is clinically a presentation of COVID-19 pneumonia based on his symptoms and based on his chest x-ray and CT of the chest findings. Patient is already on the COVID-19 cocktail, patient and family declined the Remdesivir and requested ivermectin. CBC showed no evidence of leukocytosis. His d-dimer is 1.[address] angiogram of the chest. C-reactive protein is 8.5, LDH is 591. Reevaluated today 08/11/22, remains in the ICU, patient is still requiring high FiO2 45%, 35 L flow via airvo. Patient clinically seems better than expected considering his chest x-ray findings and considering his FiO2 requirement. He seems to be comfortable, not in distress, his pro-calcitonin level was slightly elevated and he was given antibiotics empirically remains on the COVID-19 cocktail. Patient is out of the therapeutic window for Remdesivir. Patient had remote smoking history and he had history of asbestos associated lung disease supposedly. WBC count is 13.9 hemoglobin 13.1. Normal renal profile is normal. Objective - Vital Signs Vital signs: Vital Signs Temp 98.0 F 08/11/22 08:00 Pulse 80 08/11/22 09:00 Resp 26 H 08/11/22 09:00 BP 131/66 08/11/22 09:00 Pulse Ox 91 L 08/11/22 09:00 FiO2 45 08/11/22 08:12 Intake & Output 08/10/22 08/11/22 08/11/22 18:59 06:59 18:59 Intake Total 350 590 160 Output Total 1100 690 Balance -750 -100 160 Intake: IV 350 340 160 Cefepime 2 gm In Sodium 100 100 Chloride 0.9% 100 ml @ 25 mls/hr IVPB Q12HR [facility] Rx #:[id number] Sodium Chloride 0.9% 1, 350 240 60 000 ml @ 20 mls/hr IV . Q24H [facility] Rx#:[id number] Oral 250 Output: Urine 1100 690 Other: Voiding Method Urinal Urinal Urinal # Voids 1 1 # Bowel Movements 1 1 - Exam Physical Exam: Revealed an 82-year-old white male, pleasant, in no distress on airvo Head: Atraumatic, normocephalic. HEENT:[Neck is supple.] [No neck masses.] [No thyromegaly.] [No JVD.] Chest: [Crackles at the bases, rhonchi and wheezes noted bilaterally today Cardiac Exam: [Normal S1 and S2, no S3 gallop, no murmur.] Abdomen: [Soft, nontender, no megaly, no rebound, no guarding, normal bowel sounds.] Extremities: [No clubbing, no edema, no cyanosis.] Neurological Exam: [No focal neurologic deficit.] Alert and oriented 3. Psychiatric: Normal mood affect and normal mental status examination. Skin: No rashes. - Labs CBC & Chem 7: 08/11/22 06:51 08/11/22 06:51 Labs: Abnormal Lab Results - Last 24 Hours (Table) 08/10/22 08/10/22 08/10/22 Range/Units 11:43 16:56 20:02 WBC (3.8-10.6) k/uL BUN (9-20) mg/dL POC Glucose (mg/dL) 261 H 290 H 257 H (70-110) mg/dL Calcium (8.4-10.2) mg/dL 08/11/22 08/11/22 Range/Units 06:51 06:51 WBC 13.9 H (3.8-10.6) k/uL BUN 23 H (9-20) mg/dL POC Glucose (mg/dL) (70-110) mg/dL Calcium 8.2 L (8.4-10.2) mg/dL Assessment and Plan Assessment: Impression: Acute hypoxic respiratory failure secondary to COVID-19 pneumonia Type 2 diabetes. Benign essential hypertension. Dyslipidemia. 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 nonvaccinated Recommendation: Continue COVID-19 cocktail. Change Decadron to Solu-Medrol. Increase the dose. Patient does have significant wheezing on examination today Continue GI and DVT prophylaxis. Continue empiric antibiotics/cefepime. Transfer patient to regular medical floor today. Close monitoring of his sugars and treatment Gently diurese the patient We will continue to follow. Time with Patient: Less than 30
[2022-08-11] MEDS: methylPREDNISolone SOD SUCCI 40 MG/ML 1 ML VIAL IV SCH ×3 (11:18→23:29)
[2022-08-11 11:26] LABS: Glucose,Whole Blood 178 mg/dL (70-110)
--- NOTE | 2022-08-11 15:07 | P.PN ---
Subjective Progress Note Date: 08/11/22 Patient is an 82-year-old male for history of asbestosis, diabetes mellitus type 2, hypertension, and dyslipidemia who presented to the ER with complaints of shortness of breath. On arrival to the ER and was found to have significant vital sign derangement with a pulse of 104, respiratory rate 26, blood pressure 186/88, and room air pulse ox of 54. He was placed on BiPAP and had an improvement in FiO2 to 95%. Laboratory analysis was remarkable for mildly elevated d-dimer of 1.11, sodium 135, glucose 248, lactic acid 3.2, bilirubin 1.7, and COVID-19 testing was positive. CTA chest demonstrated extensive pulmonary infiltrates with pulmonary emphysema. He was admitted to the ICU and was transitioned to Air. Patient seen and examined at bedside. He reports she feels much better than yesterday. Breathing is stable. He is on HF 35L FiO2 of 45%. General: ill appearing, mild distress, appears at stated age Derm: warm, dry Head: atraumatic, normocephalic, symmetric Eyes: EOMI, no lid lag, anicteric sclera Mouth: no lip lesion, mucus membranes moist Cardiovascular: S1S2 reg, no murmur Lungs: Decrease bs bilateral, no rhonchi, no rales , no accessory muscle use Ext: no gross muscle atrophy, no edema, no contractures Neuro: no focal neuro deficits Psych: Alert, oriented, appropriate affect #COVID-19 Pneumonia #Acute Hypoxic respiratory failure #Hx Asbestosis - Dexamethasone - Albuterol PRN - Cefepime - Ferritin, CRP, ESR mildly elevated - Pro calcitonin mildly elevated - Follow CXR - Pulmonology on board #Leukocytosis - Steroid induced - Continue to monitor #Lactic acidosis - Resolved - Stop IVF and encourage hydration by mouth #DM 2 with hyperglycemia - Hold metformin - A1C 7.2 - SSI, levemir - Accucheck ACHS with hypoglycemic precautions #Resistant HTN - Catapres patch - Norvasc, Hydralazine, ARB, BB Objective - Vital Signs Vital signs: Vital Signs Temp 98.2 F 08/11/22 12:00 Pulse 61 08/11/22 13:00 Resp 22 08/11/22 13:00 BP 132/79 08/11/22 13:00 Pulse Ox 91 L 08/11/22 13:00 FiO2 45 08/11/22 12:00 Intake & Output 08/10/22 08/11/22 08/11/22 18:59 06:59 18:59 Intake Total 350 590 160 Output Total 1100 690 Balance -750 -100 160 Intake: IV 350 340 160 Cefepime 2 gm In Sodium 100 100 Chloride 0.9% 100 ml @ 25 mls/hr IVPB Q12HR [facility] Rx #:[id number] Sodium Chloride 0.9% 1, 350 240 60 000 ml @ 20 mls/hr IV . Q24H [facility] Rx#:[id number] Oral 250 Output: Urine 1100 690 Other: Voiding Method Urinal Urinal Urinal # Voids 1 1 # Bowel Movements 1 1 - Labs CBC & Chem 7: 08/11/22 06:51 08/11/22 06:51 Labs: Abnormal Lab Results - Last 24 Hours (Table) 08/10/22 08/10/22 08/11/22 Range/Units 16:56 20:02 06:51 WBC 13.9 H (3.8-10.6) k/uL BUN (9-20) mg/dL POC Glucose (mg/dL) 290 H 257 H (70-110) mg/dL Calcium (8.4-10.2) mg/dL 08/11/22 08/11/22 Range/Units 06:51 11:25 WBC (3.8-10.6) k/uL BUN 23 H (9-20) mg/dL POC Glucose (mg/dL) 178 H (70-110) mg/dL Calcium 8.2 L (8.4-10.2) mg/dL
[2022-08-11] MEDS ORDERED: SODIUM BICARB 8.4% 50 ML SYR (1 MEQ/ML) ONE (16:21)
[2022-08-11 16:28] LABS: Glucose,Whole Blood 323 mg/dL (70-110)
[2022-08-11 17:31] LABS: Glucose,Whole Blood 346 mg/dL (70-110)
[2022-08-11 20:14] LABS: Glucose,Whole Blood 290 mg/dL (70-110)
[2022-08-11] MEDS: INSULIN DETEMIR (LEVEMIR) 100 UNIT/ML SYR SQ SCH (20:32)
[2022-08-12] MEDS: methylPREDNISolone SOD SUCCI 40 MG/ML 1 ML VIAL IV SCH ×3 (05:24→16:15)
[2022-08-12 06:58] LABS: Glucose,Whole Blood 205 mg/dL (70-110)
[2022-08-12] MEDS: INSULIN ASPART (NovoLOG) 100 UNIT/ML VIAL SQ SCH ×4 (07:01→20:29)
[2022-08-12] MEDS: ENOXAPARIN 40 MG/0.4 ML SYRINGE SQ SCH (08:30)
[2022-08-12] MEDS: SODIUM CHLORIDE 0.9% 1,000 ML IV SCH (08:31)
[2022-08-12] MEDS: hydroCHLOROthiazide 12.5 MG CAP PO SCH (08:31)
[2022-08-12] MEDS: ZINC SULFATE 220 MG CAP PO SCH (08:31)
[2022-08-12] MEDS: ASCORBIC ACID 500 MG TAB PO SCH ×2 (08:31→20:28)
[2022-08-12] MEDS: CEFEPIME 2 GM in SODIUM CHLORIDE 0.9% 100 ML IVPB SCH ×2 (08:31→16:15)
[2022-08-12] MEDS: hydrALAZINE HCL 50 MG TAB PO SCH ×2 (08:31→20:28)
[2022-08-12] MEDS: METOPROLOL TARTRATE 25 MG TAB PO SCH ×2 (08:31→20:28)
[2022-08-12] MEDS: amLODIPine 5 MG TAB PO SCH ×2 (08:31→20:28)
[2022-08-12] MEDS: MAGNESIUM OXIDE 400 MG TAB PO SCH (08:31)
[2022-08-12] MEDS: CHOLECALCIFEROL 125 MCG (5000 IU) TABLET PO SCH (08:31)
[2022-08-12] MEDS: LOSARTAN 50 MG TAB PO SCH (08:31)
[2022-08-12] MEDS: ALBUTEROL HFA INHALER INHALATION SCH ×4 (08:43→20:02)
[2022-08-12 11:26] LABS: Glucose,Whole Blood 267 mg/dL (70-110)
--- NOTE | 2022-08-12 11:50 | P.PN ---
Subjective Progress Note Date: 08/12/22 Principal diagnosis: Acute hypoxic respiratory failure secondary to COVID-19 pneumonia This is an 82-year-old white male with history of type 2 diabetes, benign essential hypertension, dyslipidemia, patient is not COVID-19 vaccinated. Patient presented to the ER yesterday with 2-3 weeks history of cough, shortness of breath, and burning sensation in the chest. Apparently upon arrival to the ER, the patient was quite hypoxic, his chest x-ray and CT angiogram of the chest showed bilateral interstitial pneumonia/infiltrates. COVID-19 testing came back positive. Patient required placement on BiPAP initially, and he was later transitioned to airvo at 55% FiO2 and 35 L flow. And he remains on that setting. Patient is feeling a bit better, nonetheless he continues to have intermittent cough and shortness of breath. His pro-calcitonin level was a bit elevated hence I recommended starting the patient empirically on cefepime. Although the presentation is clinically a presentation of COVID-19 pneumonia based on his symptoms and based on his chest x-ray and CT of the chest findings. Patient is already on the COVID-19 cocktail, patient and family declined the Remdesivir and requested ivermectin. CBC showed no evidence of leukocytosis. His d-dimer is 1.[address] angiogram of the chest. C-reactive protein is 8.5, LDH is 591. Reevaluated today 08/11/22, remains in the ICU, patient is still requiring high FiO2 45%, 35 L flow via airvo. Patient clinically seems better than expected considering his chest x-ray findings and considering his FiO2 requirement. He seems to be comfortable, not in distress, his pro-calcitonin level was slightly elevated and he was given antibiotics empirically remains on the COVID-19 cocktail. Patient is out of the therapeutic window for Remdesivir. Patient had remote smoking history and he had history of asbestos associated lung disease supposedly. WBC count is 13.9 hemoglobin 13.1. Normal renal profile is normal. Reevaluated today on 08/12/22, patient remains in the ICU as an overflow. Remains on FiO2 45%, and 55 L flow, he is on airvo. Not much of a change in the last 24 hours, patient is feeling better, he is on the COVID-19 cocktail, is also empirically on antibiotics for his slightly elevated pro calcitonin level. Patient responded well to diuretics yesterday, and chest x-ray is pending, plan to repeat his chest x-ray tomorrow. Objective - Vital Signs Vital signs: Vital Signs Temp 98.3 F 08/12/22 08:00 Pulse 74 08/12/22 09:00 Resp 25 H 08/12/22 09:00 BP 146/80 08/12/22 09:00 Pulse Ox 92 L 08/12/22 09:00 FiO2 40 08/12/22 11:09 Intake & Output 08/11/22 08/12/22 08/12/22 18:59 06:59 18:59 Intake Total 260 350 Output Total 500 Balance 260 -150 Weight 77.4 kg Intake: IV 260 Cefepime 2 gm In Sodium 200 Chloride 0.9% 100 ml @ 25 mls/hr IVPB Q12HR [facility] Rx #:[id number] Sodium Chloride 0.9% 1, 60 000 ml @ 20 mls/hr IV . Q24H [facility] Rx#:[id number] Oral 350 Output: Urine 500 Other: Voiding Method Urinal Urinal Urinal # Voids 4 # Bowel Movements 1 - Exam Physical Exam: Revealed an 82-year-old white male, pleasant, in no distress on airvo Head: Atraumatic, normocephalic. HEENT:[Neck is supple.] [No neck masses.] [No thyromegaly.] [No JVD.] Chest: [Crackles at the bases, rhonchi and wheezes noted bilaterally today Cardiac Exam: [Normal S1 and S2, no S3 gallop, no murmur.] Abdomen: [Soft, nontender, no megaly, no rebound, no guarding, normal bowel sounds.] Extremities: [No clubbing, no edema, no cyanosis.] Neurological Exam: [No focal neurologic deficit.] Alert and oriented 3. Psychiatric: Normal mood affect and normal mental status examination. Skin: No rashes. - Labs CBC & Chem 7: 08/11/22 06:51 08/11/22 06:51 Labs: Abnormal Lab Results - Last 24 Hours (Table) 08/11/22 08/11/22 08/11/22 Range/Units 16:26 17:30 20:13 POC Glucose (mg/dL) 323 H 346 H 290 H (70-110) mg/dL 08/12/22 08/12/22 Range/Units 06:56 11:24 POC Glucose (mg/dL) 205 H 267 H (70-110) mg/dL Microbiology - Last 24 Hours (Table) 08/11/22 00:23 Gram Stain - Preliminary Sputum Sputum Culture - Preliminary Assessment and Plan Assessment: Impression: Acute hypoxic respiratory failure secondary to COVID-19 pneumonia Type 2 diabetes. Benign essential hypertension. Dyslipidemia. 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 nonvaccinated Recommendation: Continue COVID-19 cocktail. Continue Solu-Medrol. Follow-up chest x-ray in a.m. Continue GI and DVT prophylaxis. Continue empiric antibiotics/cefepime. Continue gentle diuresis We will continue to follow. Time with Patient: Less than 30
[2022-08-12 16:15] LABS: Glucose,Whole Blood 242 mg/dL (70-110)
--- NOTE | 2022-08-12 16:23 | P.PN ---
Subjective Progress Note Date: 08/12/22 Patient is an 82-year-old male for history of asbestosis, diabetes mellitus type 2, hypertension, and dyslipidemia who presented to the ER with complaints of shortness of breath. On arrival to the ER and was found to have significant vital sign derangement with a pulse of 104, respiratory rate 26, blood pressure 186/88, and room air pulse ox of 54. He was placed on BiPAP and had an improvement in FiO2 to 95%. Laboratory analysis was remarkable for mildly elevated d-dimer of 1.11, sodium 135, glucose 248, lactic acid 3.2, bilirubin 1.7, and COVID-19 testing was positive. CTA chest demonstrated extensive pulmonary infiltrates with pulmonary emphysema. He was admitted to the ICU and was transitioned to Air. Patient seen and examined at bedside. He reports she feels much better than yesterday. Breathing is stable. He is on HF 35L FiO2 of 38%. General: ill appearing, mild distress, appears at stated age Derm: warm, dry Head: atraumatic, normocephalic, symmetric Eyes: EOMI, no lid lag, anicteric sclera Mouth: no lip lesion, mucus membranes moist Cardiovascular: S1S2 reg, no murmur Lungs: Decrease bs bilateral, no rhonchi, no rales , no accessory muscle use Ext: no gross muscle atrophy, no edema, no contractures Neuro: no focal neuro deficits Psych: Alert, oriented, appropriate affect #COVID-19 Pneumonia #Acute Hypoxic respiratory failure #Hx Asbestosis - Dexamethasone - Albuterol PRN - Cefepime - Ferritin, CRP, ESR mildly elevated - Pro calcitonin mildly elevated - Follow CXR - Pulmonology on board #Leukocytosis - Steroid induced - Continue to monitor #Lactic acidosis - Resolved - Stop IVF and encourage hydration by mouth #DM 2 with hyperglycemia - Hold metformin - A1C 7.2 - SSI, levemir - Accucheck ACHS with hypoglycemic precautions #Resistant HTN - Catapres patch - Norvasc, Hydralazine, ARB, BB Objective - Vital Signs Vital signs: Vital Signs Temp 98.1 F 08/12/22 12:00 Pulse 58 L 08/12/22 12:00 Resp 13 08/12/22 12:00 BP 146/80 08/12/22 12:00 Pulse Ox 93 L 08/12/22 16:14 FiO2 40 08/12/22 16:14 Intake & Output 08/11/22 08/12/22 08/12/22 18:59 06:59 18:59 Intake Total 260 350 Output Total 500 450 Balance 260 -150 -450 Weight 77.4 kg Intake: IV 260 Cefepime 2 gm In Sodium 200 Chloride 0.9% 100 ml @ 25 mls/hr IVPB Q12HR [facility] Rx #:[id number] Sodium Chloride 0.9% 1, 60 000 ml @ 20 mls/hr IV . Q24H [facility] Rx#:[id number] Oral 350 Output: Urine 500 450 Other: Voiding Method Urinal Urinal Urinal # Voids 4 # Bowel Movements 1 - Labs CBC & Chem 7: 08/11/22 06:51 08/11/22 06:51 Labs: Abnormal Lab Results - Last 24 Hours (Table) 08/11/22 08/11/22 08/11/22 Range/Units 16:26 17:30 20:13 POC Glucose (mg/dL) 323 H 346 H 290 H (70-110) mg/dL 08/12/22 08/12/22 08/12/22 Range/Units 06:56 11:24 16:14 POC Glucose (mg/dL) 205 H 267 H 242 H (70-110) mg/dL Microbiology - Last 24 Hours (Table) 08/11/22 00:23 Gram Stain - Preliminary Sputum Sputum Culture - Preliminary Laura albicans Gram Neg Bacilli
[2022-08-12 20:19] LABS: Glucose,Whole Blood 273 mg/dL (70-110)
[2022-08-12] MEDS: INSULIN DETEMIR (LEVEMIR) 100 UNIT/ML SYR SQ SCH (20:29)
[2022-08-13] MEDS: methylPREDNISolone SOD SUCCI 40 MG/ML 1 ML VIAL IV SCH ×3 (00:01→11:40)
[2022-08-13] MEDS: CEFEPIME 2 GM in SODIUM CHLORIDE 0.9% 100 ML IVPB SCH ×3 (00:02→16:42)
[2022-08-13 06:24] LABS: HCT 39.3 % (39.0-53.0); MCH 29.4 pg (25.0-35.0); MCHC 33.1 g/dL (31.0-37.0); MCV 88.6 fL (80.0-100.0); Mean Platelet Volume 9.1; Platelet Count 201 k/uL (150-450); RBC 4.43 m/uL (4.30-5.90); RDW 12.6 % (11.5-15.5); WBC 13.3 k/uL (3.8-10.6)
[2022-08-13] MEDS: SODIUM CHLORIDE 0.9% 1,000 ML IV SCH (06:25)
[2022-08-13 06:57] LABS: African American GFR (CKD) >90 (>60 ml/min/1.73 sqM); Anion Gap 4 mmol/L; Blood Urea Nitrogen 28 mg/dL (9-20); Calcium 8.1 mg/dL (8.4-10.2); Carbon Dioxide 29 mmol/L (22-30); Chloride 103 mmol/L (98-107); Glucose 188 mg/dL (74-99); Non-African American GFR(CKD) 83 (>60 ml/min/1.73 sqM); Potassium 4.2 mmol/L (3.5-5.1); Sodium 136 mmol/L (137-145)
--- NOTE | 2022-08-13 07:14 | XR ---
EXAMINATION TYPE: XR chest 1V portable DATE OF EXAM: 08/13/2022 CLINICAL HISTORY: Difficulty breathing progress study. COVID TECHNIQUE: Single AP portable upright view of the chest is obtained. COMPARISON: Chest x-ray from August 10, 2022. CTA chest August 09, 2022 FINDINGS: Background chronic emphysematous change and calcified pleural plaques redemonstrated. Pers istent bilateral peripheral increased opacities. Stable mild cardiomegaly. Osseous structures are int act. IMPRESSION: Chronic changes and mild cardiomegaly with bilateral peripheral opacities consistent with covid-19 infection all redemonstrated. No significant change from most recent x-ray.
[2022-08-13 08:13] LABS: Glucose,Whole Blood 204 mg/dL (70-110)
[2022-08-13] MEDS: LOSARTAN 50 MG TAB PO SCH (08:27)
[2022-08-13] MEDS: amLODIPine 5 MG TAB PO SCH ×2 (08:27→20:32)
[2022-08-13] MEDS: hydrALAZINE HCL 50 MG TAB PO SCH ×2 (08:27→20:31)
[2022-08-13] MEDS: ZINC SULFATE 220 MG CAP PO SCH (08:27)
[2022-08-13] MEDS: CHOLECALCIFEROL 125 MCG (5000 IU) TABLET PO SCH (08:27)
[2022-08-13] MEDS: METOPROLOL TARTRATE 25 MG TAB PO SCH ×2 (08:27→20:32)
[2022-08-13] MEDS: MAGNESIUM OXIDE 400 MG TAB PO SCH (08:27)
[2022-08-13] MEDS: ASCORBIC ACID 500 MG TAB PO SCH ×2 (08:27→20:31)
[2022-08-13] MEDS: ENOXAPARIN 40 MG/0.4 ML SYRINGE SQ SCH (08:28)
[2022-08-13] MEDS: hydroCHLOROthiazide 12.5 MG CAP PO SCH (08:28)
[2022-08-13] MEDS: INSULIN ASPART (NovoLOG) 100 UNIT/ML VIAL SQ SCH ×4 (08:28→20:32)
[2022-08-13] MEDS: ALBUTEROL HFA INHALER INHALATION SCH ×4 (08:40→20:21)
[2022-08-13 11:31] LABS: Glucose,Whole Blood 211 mg/dL (70-110)
--- NOTE | 2022-08-13 11:35 | P.PN ---
Subjective Progress Note Date: 08/13/22 Patient is an 82-year-old male for history of asbestosis, diabetes mellitus type 2, hypertension, and dyslipidemia who presented to the ER with complaints of shortness of breath. On arrival to the ER and was found to have significant vital sign derangement with a pulse of 104, respiratory rate 26, blood pressure 186/88, and room air pulse ox of 54. He was placed on BiPAP and had an improvement in FiO2 to 95%. Laboratory analysis was remarkable for mildly elevated d-dimer of 1.11, sodium 135, glucose 248, lactic acid 3.2, bilirubin 1.7, and COVID-19 testing was positive. CTA chest demonstrated extensive pulmonary infiltrates with pulmonary emphysema. He was admitted to the ICU and was transitioned to Air. Patient seen and examined at bedside. He reports she feels much better than yesterday. Breathing is stable. He is on HF 35L FiO2 of45%. General: ill appearing, mild distress, appears at stated age Derm: warm, dry Head: atraumatic, normocephalic, symmetric Eyes: EOMI, no lid lag, anicteric sclera Mouth: no lip lesion, mucus membranes moist Cardiovascular: S1S2 reg, no murmur Lungs: Decrease bs bilateral, no rhonchi, no rales , no accessory muscle use Ext: no gross muscle atrophy, no edema, no contractures Neuro: no focal neuro deficits Psych: Alert, oriented, appropriate affect #COVID-19 Pneumonia #Acute Hypoxic respiratory failure #Hx Asbestosis - Dexamethasone - Albuterol PRN - Cefepime - Ferritin, CRP, ESR mildly elevated - Pro calcitonin mildly elevated - Follow CXR - Pulmonology on board #Leukocytosis - Steroid induced - Continue to monitor #Lactic acidosis - Resolved - Stop IVF and encourage hydration by mouth #DM 2 with hyperglycemia - Hold metformin - A1C 7.2 - SSI, levemir - Accucheck ACHS with hypoglycemic precautions #Resistant HTN - Catapres patch - Norvasc, Hydralazine, ARB, BB Objective - Vital Signs Vital signs: Vital Signs Temp 98.0 F 08/13/22 02:00 Pulse 53 L 08/13/22 06:00 Resp 16 08/13/22 06:00 BP 139/68 08/13/22 02:00 Pulse Ox 94 L 08/13/22 06:00 FiO2 40 08/13/22 11:05 Intake & Output 08/12/22 08/13/22 08/13/22 18:59 06:59 18:59 Intake Total 550 Output Total 650 1125 Balance -650 -575 Weight 77.8 kg Intake: Oral 550 Output: Urine 650 1125 Other: Voiding Method Urinal Urinal # Voids 4 - Labs CBC & Chem 7: 08/13/22 05:53 08/13/22 05:53 Labs: Abnormal Lab Results - Last 24 Hours (Table) 08/12/22 08/12/22 08/13/22 Range/Units 16:14 20:18 05:53 WBC 13.3 H (3.8-10.6) k/uL Sodium (137-145) mmol/L BUN (9-20) mg/dL Glucose (74-99) mg/dL POC Glucose (mg/dL) 242 H 273 H (70-110) mg/dL Calcium (8.4-10.2) mg/dL 08/13/22 08/13/22 08/13/22 Range/Units 05:53 08:12 11:30 WBC (3.8-10.6) k/uL Sodium 136 L (137-145) mmol/L BUN 28 H (9-20) mg/dL Glucose 188 H (74-99) mg/dL POC Glucose (mg/dL) 204 H 211 H (70-110) mg/dL Calcium 8.1 L (8.4-10.2) mg/dL Microbiology - Last 24 Hours (Table) 08/11/22 00:23 Gram Stain - Preliminary Sputum Sputum Culture - Preliminary Laura albicans Gram Neg Bacilli
--- NOTE | 2022-08-13 11:54 | P.PN ---
Subjective Progress Note Date: 08/13/22 Principal diagnosis: Acute hypoxic respiratory failure secondary to COVID-19 pneumonia This is an 82-year-old white male with history of type 2 diabetes, benign essential hypertension, dyslipidemia, patient is not COVID-19 vaccinated. Patient presented to the ER yesterday with 2-3 weeks history of cough, shortness of breath, and burning sensation in the chest. Apparently upon arrival to the ER, the patient was quite hypoxic, his chest x-ray and CT angiogram of the chest showed bilateral interstitial pneumonia/infiltrates. COVID-19 testing came back positive. Patient required placement on BiPAP initially, and he was later transitioned to airvo at 55% FiO2 and 35 L flow. And he remains on that setting. Patient is feeling a bit better, nonetheless he continues to have intermittent cough and shortness of breath. His pro-calcitonin level was a bit elevated hence I recommended starting the patient empirically on cefepime. Although the presentation is clinically a presentation of COVID-19 pneumonia based on his symptoms and based on his chest x-ray and CT of the chest findings. Patient is already on the COVID-19 cocktail, patient and family declined the Remdesivir and requested ivermectin. CBC showed no evidence of leukocytosis. His d-dimer is 1.[address] angiogram of the chest. C-reactive protein is 8.5, LDH is 591. Reevaluated today 08/11/22, remains in the ICU, patient is still requiring high FiO2 45%, 35 L flow via airvo. Patient clinically seems better than expected considering his chest x-ray findings and considering his FiO2 requirement. He seems to be comfortable, not in distress, his pro-calcitonin level was slightly elevated and he was given antibiotics empirically remains on the COVID-19 cocktail. Patient is out of the therapeutic window for Remdesivir. Patient had remote smoking history and he had history of asbestos associated lung disease supposedly. WBC count is 13.9 hemoglobin 13.1. Normal renal profile is normal. Reevaluated today on 08/12/22, patient remains in the ICU as an overflow. Remains on FiO2 45%, and 55 L flow, he is on airvo. Not much of a change in the last 24 hours, patient is feeling better, he is on the COVID-19 cocktail, is also empirically on antibiotics for his slightly elevated pro calcitonin level. Patient responded well to diuretics yesterday, and chest x-ray is pending, plan to repeat his chest x-ray tomorrow. Reevaluated today on 08/13/22, patient remains in the ICU as an overflow. Patient is on 40% FiO2 and 35 L flow, today I am recommending that we try the patient on high flow nasal cannula at 15 L, and hopefully gradually titrated down. Chest x-ray is showing improvement in his interstitial infiltrates. Clinically the patient is feeling better, and I'm hoping we could get him transferred to the regular medical floor today if possible. Labs today are relatively unremarkable including CBC, basic metabolic profile, renal profile. Objective - Vital Signs Vital signs: Vital Signs Temp 98.0 F 08/13/22 02:00 Pulse 53 L 08/13/22 06:00 Resp 16 08/13/22 06:00 BP 139/68 08/13/22 02:00 Pulse Ox 94 L 08/13/22 06:00 FiO2 40 08/13/22 11:05 Intake & Output 08/12/22 08/13/22 08/13/22 18:59 06:59 18:59 Intake Total 550 Output Total 650 1125 Balance -650 -575 Weight 77.8 kg Intake: Oral 550 Output: Urine 650 1125 Other: Voiding Method Urinal Urinal # Voids 4 - Exam Physical Exam: Revealed an 82-year-old white male, pleasant, in no distress on airvo Head: Atraumatic, normocephalic. HEENT:[Neck is supple.] [No neck masses.] [No thyromegaly.] [No JVD.] Chest: Minimal crackles at the bases bilaterally, left more so than right. Cardiac Exam: [Normal S1 and S2, no S3 gallop, no murmur.] Abdomen: [Soft, nontender, no megaly, no rebound, no guarding, normal bowel sounds.] Extremities: [No clubbing, no edema, no cyanosis.] Neurological Exam: [No focal neurologic deficit.] Alert and oriented 3. Psychiatric: Normal mood affect and normal mental status examination. Skin: No rashes. - Labs CBC & Chem 7: 08/13/22 05:53 08/13/22 05:53 Labs: Abnormal Lab Results - Last 24 Hours (Table) 08/12/22 08/12/2222 Range/Units 16:14 20:18 05:53 WBC 13.3 H (3.8-10.6) k/uL Sodium (137-145) mmol/L BUN (9-20) mg/dL Glucose (74-99) mg/dL POC Glucose (mg/dL) 242 H 273 H (70-110) mg/dL Calcium (8.4-10.2) mg/dL 08/13/22 08/13/22 08/13/22 Range/Units 05:53 08:12 11:30 WBC (3.8-10.6) k/uL Sodium 136 L (137-145) mmol/L BUN 28 H (9-20) mg/dL Glucose 188 H (74-99) mg/dL POC Glucose (mg/dL) 204 H 211 H (70-110) mg/dL Calcium 8.1 L (8.4-10.2) mg/dL Microbiology - Last 24 Hours (Table) 08/11/22 00:23 Gram Stain - Preliminary Sputum Sputum Culture - Preliminary Laura albicans Gram Neg Bacilli Assessment and Plan Assessment: Impression: Acute hypoxic respiratory failure secondary to COVID-19 pneumonia Type 2 diabetes. Benign essential hypertension. Dyslipidemia. 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 nonvaccinated Recommendation: Continue COVID-19 cocktail. Change Solu-Medrol to oral prednisone 30 mg daily and taper Follow-up chest x-ray in a.m. Continue GI and DVT prophylaxis. Patient is on Lovenox. Continue empiric antibiotics/cefepime. Continue gentle diuresis Transfer patient to a regular medical floor, transition from airvo to high flow nasal cannula and titrate accordingly We will continue to follow. Time with Patient: Less than 30
[2022-08-13 16:33] LABS: Glucose,Whole Blood 264 mg/dL (70-110)
[2022-08-13] MEDS: predniSONE 10 MG TAB PO SCH (17:43)
[2022-08-13 19:11] LABS: Glucose,Whole Blood 323 mg/dL (70-110)
[2022-08-13] MEDS: INSULIN DETEMIR (LEVEMIR) 100 UNIT/ML SYR SQ SCH (20:32)
[2022-08-14] MEDS: CEFEPIME 2 GM in SODIUM CHLORIDE 0.9% 100 ML IVPB SCH ×4 (00:20→23:58)
[2022-08-14 06:20] LABS: Glucose,Whole Blood 139 mg/dL (70-110)
[2022-08-14] MEDS: INSULIN ASPART (NovoLOG) 100 UNIT/ML VIAL SQ SCH ×4 (06:36→21:20)
[2022-08-14] MEDS: ALBUTEROL HFA INHALER INHALATION SCH ×4 (07:26→20:50)
[2022-08-14 08:53] VITALS: BMI 24.6
[2022-08-14] MEDS: predniSONE 10 MG TAB PO SCH (10:17)
[2022-08-14] MEDS: CHOLECALCIFEROL 125 MCG (5000 IU) TABLET PO SCH (10:18)
[2022-08-14] MEDS: hydroCHLOROthiazide 12.5 MG CAP PO SCH (10:18)
[2022-08-14] MEDS: ZINC SULFATE 220 MG CAP PO SCH (10:18)
[2022-08-14] MEDS: LOSARTAN 50 MG TAB PO SCH (10:18)
[2022-08-14] MEDS: METOPROLOL TARTRATE 25 MG TAB PO SCH ×2 (10:18→21:20)
[2022-08-14] MEDS: hydrALAZINE HCL 50 MG TAB PO SCH ×2 (10:19→21:20)
[2022-08-14] MEDS: amLODIPine 5 MG TAB PO SCH ×2 (10:19→21:20)
[2022-08-14] MEDS: ASCORBIC ACID 500 MG TAB PO SCH ×2 (10:19→21:20)
[2022-08-14] MEDS: MAGNESIUM OXIDE 400 MG TAB PO SCH (10:19)
[2022-08-14] MEDS: ENOXAPARIN 40 MG/0.4 ML SYRINGE SQ SCH (10:20)
[2022-08-14 11:29] LABS: Glucose,Whole Blood 185 mg/dL (70-110)
--- NOTE | 2022-08-14 12:38 | P.PN ---
Subjective Progress Note Date: 08/14/22 Patient is an 82-year-old male for history of asbestosis, diabetes mellitus type 2, hypertension, and dyslipidemia who presented to the ER with complaints of shortness of breath. On arrival to the ER and was found to have significant vital sign derangement with a pulse of 104, respiratory rate 26, blood pressure 186/88, and room air pulse ox of 54. He was placed on BiPAP and had an improvement in FiO2 to 95%. Laboratory analysis was remarkable for mildly elevated d-dimer of 1.11, sodium 135, glucose 248, lactic acid 3.2, bilirubin 1.7, and COVID-19 testing was positive. CTA chest demonstrated extensive pulmonary infiltrates with pulmonary emphysema. He was admitted to the ICU and was transitioned to Air. Patient seen and examined at bedside. He reports she feels much better than yesterday. Breathing is stable. He is on HFNC 8L. General: ill appearing, mild distress, appears at stated age Derm: warm, dry Head: atraumatic, normocephalic, symmetric Eyes: EOMI, no lid lag, anicteric sclera Mouth: no lip lesion, mucus membranes moist Cardiovascular: S1S2 reg, no murmur Lungs: Decrease bs bilateral, no rhonchi, no rales , no accessory muscle use Ext: no gross muscle atrophy, no edema, no contractures Neuro: no focal neuro deficits Psych: Alert, oriented, appropriate affect #COVID-19 Pneumonia #Acute Hypoxic respiratory failure #Hx Asbestosis - Dexamethasone - Albuterol PRN - Cefepime - Ferritin, CRP, ESR mildly elevated - Pro calcitonin mildly elevated - Follow CXR - Pulmonology on board #Leukocytosis - Steroid induced - Continue to monitor #Lactic acidosis - Resolved - Stop IVF and encourage hydration by mouth #DM 2 with hyperglycemia - Hold metformin - A1C 7.2 - SSI, levemir - Accucheck ACHS with hypoglycemic precautions #Resistant HTN - Catapres patch - Norvasc, Hydralazine, ARB, BB Objective - Vital Signs Vital signs: Vital Signs Temp 97.9 F 08/14/22 08:47 Pulse 63 08/14/22 08:47 Resp 18 08/14/22 08:47 BP 164/80 08/14/22 08:47 Pulse Ox 98 08/14/22 08:47 FiO2 40 08/13/22 11:05 Intake & Output 08/13/22 08/14/22 08/14/22 18:59 06:59 18:59 Intake Total 1000 Output Total 800 250 Balance 200 -250 Weight 77.8 kg Intake: Oral 1000 Output: Urine 800 250 Other: Voiding Method Urinal # Voids 4 4 - Labs CBC & Chem 7: 08/13/22 05:53 08/13/22 05:53 Labs: Abnormal Lab Results - Last 24 Hours (Table) 08/13/22 08/13/22 08/14/22 Range/Units 16:32 19:10 06:18 POC Glucose (mg/dL) 264 H 323 H 139 H (70-110) mg/dL 08/14/22 Range/Units 11:28 POC Glucose (mg/dL) 185 H (70-110) mg/dL
[2022-08-14] MEDS: SODIUM CHLORIDE 0.9% 1,000 ML IV SCH (14:04)
[2022-08-14] MEDS ORDERED: FUROSEMIDE 10 MG/ML 2 ML VIAL IV STA (14:49)
--- NOTE | 2022-08-14 14:49 | P.PN ---
Subjective Progress Note Date: 08/14/22 Principal diagnosis: Acute hypoxic respiratory failure secondary to COVID-19 pneumonia This is an 82-year-old white male with history of type 2 diabetes, benign essential hypertension, dyslipidemia, patient is not COVID-19 vaccinated. Patient presented to the ER yesterday with 2-3 weeks history of cough, shortness of breath, and burning sensation in the chest. Apparently upon arrival to the ER, the patient was quite hypoxic, his chest x-ray and CT angiogram of the chest showed bilateral interstitial pneumonia/infiltrates. COVID-19 testing came back positive. Patient required placement on BiPAP initially, and he was later transitioned to airvo at 55% FiO2 and 35 L flow. And he remains on that setting. Patient is feeling a bit better, nonetheless he continues to have intermittent cough and shortness of breath. His pro-calcitonin level was a bit elevated hence I recommended starting the patient empirically on cefepime. Although the presentation is clinically a presentation of COVID-19 pneumonia based on his symptoms and based on his chest x-ray and CT of the chest findings. Patient is already on the COVID-19 cocktail, patient and family declined the Remdesivir and requested ivermectin. CBC showed no evidence of leukocytosis. His d-dimer is 1.[address] angiogram of the chest. C-reactive protein is 8.5, LDH is 591. Reevaluated today 08/11/22, remains in the ICU, patient is still requiring high FiO2 45%, 35 L flow via airvo. Patient clinically seems better than expected considering his chest x-ray findings and considering his FiO2 requirement. He seems to be comfortable, not in distress, his pro-calcitonin level was slightly elevated and he was given antibiotics empirically remains on the COVID-19 cocktail. Patient is out of the therapeutic window for Remdesivir. Patient had remote smoking history and he had history of asbestos associated lung disease supposedly. WBC count is 13.9 hemoglobin 13.1. Normal renal profile is normal. Reevaluated today on 08/12/22, patient remains in the ICU as an overflow. Remains on FiO2 45%, and 55 L flow, he is on airvo. Not much of a change in the last 24 hours, patient is feeling better, he is on the COVID-19 cocktail, is also empirically on antibiotics for his slightly elevated pro calcitonin level. Patient responded well to diuretics yesterday, and chest x-ray is pending, plan to repeat his chest x-ray tomorrow. Reevaluated today on 08/13/22, patient remains in the ICU as an overflow. Patient is on 40% FiO2 and 35 L flow, today I am recommending that we try the patient on high flow nasal cannula at 15 L, and hopefully gradually titrated down. Chest x-ray is showing improvement in his interstitial infiltrates. Clinically the patient is feeling better, and I'm hoping we could get him transferred to the regular medical floor today if possible. Labs today are relatively unremarkable including CBC, basic metabolic profile, renal profile. Reevaluated today on 08/14/22, patient is doing well, he is now on 8 L high flow nasal cannula, O2 saturation is in the low 90s. Hardly any pulmonary symptoms, patient is doing well overall, and I have a feeling that once the patient is down to 5 L nasal cannula he could be considered for discharge home on home oxygen. In the meantime the patient remains on COVID-19 cocktail mostly. WBC count is 13.3 hemoglobin is 13.0 a left lites are normal renal profile is normal, remains on cefepime empirically. Chest x-ray from yesterday showed mostly chronic changes and bilateral peripheral opacities consistent with COVID- 19 infection Objective - Vital Signs Vital signs: Vital Signs Temp 97.9 F 08/14/22 08:47 Pulse 63 08/14/22 08:47 Resp 18 08/14/22 08:47 BP 164/80 08/14/22 08:47 Pulse Ox 98 08/14/22 08:47 FiO2 40 08/13/22 11:05 Intake & Output 08/13/22 08/14/22 08/14/22 18:59 06:59 18:59 Intake Total 1000 Output Total 800 250 Balance 200 -250 Weight 77.8 kg Intake: Oral 1000 Output: Urine 800 250 Other: Voiding Method Urinal # Voids 4 4 - Exam Physical Exam: Revealed an 82-year-old white male, pleasant, in no distress on 8 L high flow nasal cannula Head: Atraumatic, normocephalic. HEENT:[Neck is supple.] [No neck masses.] [No thyromegaly.] [No JVD.] Chest: Minimal crackles at the bases bilaterally, left more so than right. Cardiac Exam: [Normal S1 and S2, no S3 gallop, no murmur.] Abdomen: [Soft, nontender, no megaly, no rebound, no guarding, normal bowel sounds.] Extremities: [No clubbing, no edema, no cyanosis.] Neurological Exam: [No focal neurologic deficit.] Alert and oriented 3. Psychiatric: Normal mood affect and normal mental status examination. Skin: No rashes. - Labs CBC & Chem 7: 08/13/22 05:53 08/13/22 05:53 Labs: Abnormal Lab Results - Last 24 Hours (Table) 08/13/22 08/13/22 08/14/22 Range/Units 16:32 19:10 06:18 POC Glucose (mg/dL) 264 H 323 H 139 H (70-110) mg/dL 08/14/22 Range/Units 11:28 POC Glucose (mg/dL) 185 H (70-110) mg/dL Assessment and Plan Assessment: Impression: Acute hypoxic respiratory failure secondary to COVID-19 pneumonia Type 2 diabetes. Benign essential hypertension. Dyslipidemia. 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 nonvaccinated Recommendation: Continue COVID-19 cocktail. Continue steroids/prednisone. Continue Lovenox. Continue cefepime. Intermittent gentle diuresis Continue to titrate FiO2 down and once he is down to 5 L, consider discharge planning We will continue to follow. Time with Patient: Less than 30
[2022-08-14 16:35] LABS: Glucose,Whole Blood 226 mg/dL (70-110)
[2022-08-14] MEDS ORDERED: SODIUM CHLORIDE 0.65% NASAL SPRAY 44 ML BTL NASAL PRN (16:50)
[2022-08-14 20:01] LABS: Glucose,Whole Blood 277 mg/dL (70-110)
[2022-08-14] MEDS: INSULIN DETEMIR (LEVEMIR) 100 UNIT/ML SYR SQ SCH (21:21)
[2022-08-15] MEDS ORDERED: ONDANSETRON 4 MG/2 ML VIAL IVP STA (05:21)
[2022-08-15 06:23] LABS: Glucose,Whole Blood 75 mg/dL (70-110)
[2022-08-15] MEDS: INSULIN ASPART (NovoLOG) 100 UNIT/ML VIAL SQ SCH ×4 (06:24→21:39)
[2022-08-15 06:44] LABS: Glucose,Whole Blood 98 mg/dL (70-110)
[2022-08-15] MEDS: ALBUTEROL HFA INHALER INHALATION SCH ×4 (07:35→21:10)
[2022-08-15] MEDS: CEFEPIME 2 GM in SODIUM CHLORIDE 0.9% 100 ML IVPB SCH ×2 (08:48→17:05)
[2022-08-15] MEDS: ENOXAPARIN 40 MG/0.4 ML SYRINGE SQ SCH (08:48)
[2022-08-15] MEDS: predniSONE 10 MG TAB PO SCH (08:48)
[2022-08-15] MEDS: ASCORBIC ACID 500 MG TAB PO SCH ×2 (08:48→19:59)
[2022-08-15] MEDS: LOSARTAN 50 MG TAB PO SCH (08:49)
[2022-08-15] MEDS: hydroCHLOROthiazide 12.5 MG CAP PO SCH (08:49)
[2022-08-15] MEDS: hydrALAZINE HCL 50 MG TAB PO SCH ×2 (08:49→19:59)
[2022-08-15] MEDS: amLODIPine 5 MG TAB PO SCH ×2 (08:49→19:59)
[2022-08-15] MEDS: ZINC SULFATE 220 MG CAP PO SCH (08:49)
[2022-08-15] MEDS: METOPROLOL TARTRATE 25 MG TAB PO SCH ×2 (08:49→19:59)
[2022-08-15] MEDS: CHOLECALCIFEROL 125 MCG (5000 IU) TABLET PO SCH (08:49)
[2022-08-15] MEDS: MAGNESIUM OXIDE 400 MG TAB PO SCH (08:49)
--- NOTE | 2022-08-15 11:30 | P.PN ---
Subjective Progress Note Date: 08/15/22 Patient is an 82-year-old male for history of asbestosis, diabetes mellitus type 2, hypertension, and dyslipidemia who presented to the ER with complaints of shortness of breath. On arrival to the ER and was found to have significant vital sign derangement with a pulse of 104, respiratory rate 26, blood pressure 186/88, and room air pulse ox of 54. He was placed on BiPAP and had an improvement in FiO2 to 95%. Laboratory analysis was remarkable for mildly elevated d-dimer of 1.11, sodium 135, glucose 248, lactic acid 3.2, bilirubin 1.7, and COVID-19 testing was positive. CTA chest demonstrated extensive pulmonary infiltrates with pulmonary emphysema. He was admitted to the ICU and was transitioned to Air. Patient seen and examined at bedside. Breathing is stable. He is on HFNC 8L. Briefly desaturated to the 80's overnight. General: ill appearing, mild distress, appears at stated age Derm: warm, dry Head: atraumatic, normocephalic, symmetric Eyes: EOMI, no lid lag, anicteric sclera Mouth: no lip lesion, mucus membranes moist Cardiovascular: S1S2 reg, no murmur Lungs: Decrease bs bilateral, no rhonchi, no rales , no accessory muscle use Ext: no gross muscle atrophy, no edema, no contractures Neuro: no focal neuro deficits Psych: Alert, oriented, appropriate affect #COVID-19 Pneumonia #Acute Hypoxic respiratory failure #Hx Asbestosis - Dexamethasone - Albuterol PRN - Cefepime - Ferritin, CRP, ESR mildly elevated - Pro calcitonin mildly elevated - Follow CXR - Pulmonology on board #Leukocytosis - Steroid induced - Continue to monitor #Lactic acidosis - Resolved - Stop IVF and encourage hydration by mouth #DM 2 with hyperglycemia - Hold metformin - A1C 7.2 - SSI, levemir - Accucheck ACHS with hypoglycemic precautions #Resistant HTN - Catapres patch - Norvasc, Hydralazine, ARB, BB Objective - Vital Signs Vital signs: Vital Signs Temp 98.7 F 08/15/22 07:29 Pulse 71 08/15/22 08:59 Resp 18 08/15/22 08:59 BP 154/74 08/15/22 07:29 Pulse Ox 85 L 08/15/22 07:35 FiO2 40 08/13/22 11:05 Intake & Output 08/14/22 08/15/22 08/15/22 18:59 06:59 18:59 Intake Total 100 Output Total 250 650 Balance -150 -650 Weight 77.8 kg Intake: Intake, IV Titration 100 Amount Cefepime 2 gm In Sodium 100 Chloride 0.9% 100 ml @ 25 mls/hr IVPB Q8HR [facility] Rx# :[id number] Output: Urine 250 650 Other: # Voids 2 - Labs CBC & Chem 7: 08/13/22 05:53 08/13/22 05:53 Labs: Abnormal Lab Results - Last 24 Hours (Table) 08/14/22 08/14/22 Range/Units 16:34 20:00 POC Glucose (mg/dL) 226 H 277 H (70-110) mg/dL Microbiology - Last 24 Hours (Table) 08/11/22 00:23 Gram Stain - Final Sputum Sputum Culture - Final Laura albicans Pseudomonas fluorescens/putida
[2022-08-15 11:55] LABS: Glucose,Whole Blood 181 mg/dL (70-110)
--- NOTE | 2022-08-15 12:37 | P.PN ---
Subjective Progress Note Date: 08/15/22 This is an 82-year-old white male with history of type 2 diabetes, benign essential hypertension, dyslipidemia, patient is not COVID-19 vaccinated. Patient presented to the ER yesterday with 2-3 weeks history of cough, shortness of breath, and burning sensation in the chest. Apparently upon arrival to the ER, the patient was quite hypoxic, his chest x-ray and CT angiogram of the chest showed bilateral interstitial pneumonia/infiltrates. COVID-19 testing came back positive. Patient required placement on BiPAP initially, and he was later transitioned to airvo at 55% FiO2 and 35 L flow. And he remains on that setting. Patient is feeling a bit better, nonetheless he continues to have intermittent cough and shortness of breath. His pro-calcitonin level was a bit elevated hence I recommended starting the patient empirically on cefepime. Although the presentation is clinically a presentation of COVID-19 pneumonia based on his symptoms and based on his chest x-ray and CT of the chest findings. Patient is already on the COVID-19 cocktail, patient and family declined the Remdesivir and requested ivermectin. CBC showed no evidence of leukocytosis. His d-dimer is 1.[address] angiogram of the chest. C-reactive protein is 8.5, LDH is 591. Reevaluated today 08/11/22, remains in the ICU, patient is still requiring high FiO2 45%, 35 L flow via airvo. Patient clinically seems better than expected considering his chest x-ray findings and considering his FiO2 requirement. He seems to be comfortable, not in distress, his pro-calcitonin level was slightly elevated and he was given antibiotics empirically remains on the COVID-19 cocktail. Patient is out of the therapeutic window for Remdesivir. Patient had remote smoking history and he had history of asbestos associated lung disease supposedly. WBC count is 13.9 hemoglobin 13.1. Normal renal profile is normal. Reevaluated today on 08/12/22, patient remains in the ICU as an overflow. Remains on FiO2 45%, and 55 L flow, he is on airvo. Not much of a change in the last 24 hours, patient is feeling better, he is on the COVID-19 cocktail, is also empirically on antibiotics for his slightly elevated pro calcitonin level. Patient responded well to diuretics yesterday, and chest x-ray is pending, plan to repeat his chest x-ray tomorrow. Reevaluated today on 08/13/22, patient remains in the ICU as an overflow. David parekh is on 40% FiO2 and 35 L flow, today I am recommending that we try the patient on high flow nasal cannula at 15 L, and hopefully gradually titrated down. Chest x-ray is showing improvement in his interstitial infiltrates. Clinically the patient is feeling better, and I'm hoping we could get him transferred to the regular medical floor today if possible. Labs today are relatively unremarkable including CBC, basic metabolic profile, renal profile. Reevaluated today on 08/14/22, patient is doing well, he is now on 8 L high flow nasal cannula, O2 saturation is in the low 90s. Hardly any pulmonary symptoms, patient is doing well overall, and I have a feeling that once the patient is down to 5 L nasal cannula he could be considered for discharge home on home oxygen. In the meantime the patient remains on COVID-19 cocktail mostly. WBC count is 13.3 hemoglobin is 13.0 a left lites are normal renal profile is normal, remains on cefepime empirically. Chest x-ray from yesterday showed mostly chronic changes and bilateral peripheral opacities consistent with COVID- 19 infection The patient is seen today 08/15/2022 in follow-up on the regular medical floor. He sitting up in a chair at the bedside. Awake and alert in no acute distress. Still with some cough and congestion. Still requiring 8 L high flow nasal cannula. skin culture was positive for Laura and Pseudomonas fluor escence/putida. He is continued on cefepime along with bronchodilators. Remains on vitamin supplements. Lovenox for DVT prophylaxis. Prednisone taper. Objective - Vital Signs Vital signs: Vital Signs Temp 98.7 F 08/15/22 07:29 Pulse 71 08/15/22 08:59 Resp 18 08/15/22 08:59 BP 154/74 08/15/22 07:29 Pulse Ox 85 L 08/15/22 07:35 FiO2 40 08/13/22 11:05 Intake & Output 08/14/22 08/15/22 08/15/22 18:59 06:59 18:59 Intake Total 100 Output Total 250 650 Balance -150 -650 Weight 77.8 kg Intake: Intake, IV Titration 100 Amount Cefepime 2 gm In Sodium 100 Chloride 0.9% 100 ml @ 25 mls/hr IVPB Q8HR [facility] Rx# :[id number] Output: Urine 250 650 Other: # Voids 2 - Exam GENERAL EXAM: Alert, 82-year-old male patient, on 8 L high flow nasal cannula, fairly comfortable in no apparent distress. HEAD: Normocephalic. EYES: Normal reaction of pupils, equal size. NOSE: Clear with pink turbinates. THROAT: No erythema or exudates. NECK: No masses, no JVD. CHEST: No chest wall deformity. LUNGS: Equal air entry with crackles in the bilateral bases. CVS: S1 and S2 normal with no audible murmur, regular rhythm. ABDOMEN: No hepatosplenomegaly, normal bowel sounds, no guarding or rigidity. SPINE: No scoliosis or deformity SKIN: No rashes CENTRAL NERVOUS SYSTEM: No focal deficits, tone is normal in all 4 extremities. EXTREMITIES: There is no peripheral edema. No clubbing, no cyanosis. Per ipheral pulses are intact. - Labs CBC & Chem 7: 08/13/22 05:53 08/13/22 05:53 Labs: Abnormal Lab Results - Last 24 Hours (Table) 08/14/22 08/14/22 08/15/22 Range/Units 16:34 20:00 11:53 POC Glucose (mg/dL) 226 H 277 H 181 H (70-110) mg/dL Microbiology - Last 24 Hours (Table) 08/11/22 00:23 Gram Stain - Final Sputum Sputum Culture - Final Laura albicans Pseudomonas fluorescens/putida Assessment and Plan Assessment: Acute hypoxic respiratory failure secondary to COVID-19 pneumonia, nonvaccinated Pseudomonas fluorescence in sputum culture, currently on cefepime Type 2 diabetes. Benign essential hypertension. Dyslipidemia. 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 Plan: The patient was seen and evaluated Continue to titrate the FiO2 as tolerated Continue the current treatment plan We will continue to follow I have personally seen and examined the patient, performed the documentation and the assessment and plan as written. Number of minutes spent on the visit: 10.
[2022-08-15 17:07] LABS: Glucose,Whole Blood 304 mg/dL (70-110)
[2022-08-15 20:30] LABS: Glucose,Whole Blood 175 mg/dL (70-110)
[2022-08-15] MEDS: INSULIN DETEMIR (LEVEMIR) 100 UNIT/ML SYR SQ SCH (21:39)
[2022-08-16] MEDS: CEFEPIME 2 GM in SODIUM CHLORIDE 0.9% 100 ML IVPB SCH ×4 (00:56→23:33)
[2022-08-16] MEDS: SODIUM CHLORIDE 0.9% 1,000 ML IV SCH ×2 (06:06→22:38)
[2022-08-16 06:08] LABS: Glucose,Whole Blood 71 mg/dL (70-110)
[2022-08-16] MEDS: INSULIN ASPART (NovoLOG) 100 UNIT/ML VIAL SQ SCH ×4 (06:08→20:55)
[2022-08-16 06:25] LABS: Glucose,Whole Blood 79 mg/dL (70-110)
[2022-08-16] MEDS: ALBUTEROL HFA INHALER INHALATION SCH ×4 (06:58→20:46)
[2022-08-16] MEDS: ENOXAPARIN 40 MG/0.4 ML SYRINGE SQ SCH (08:25)
[2022-08-16] MEDS: LOSARTAN 50 MG TAB PO SCH (08:25)
[2022-08-16] MEDS: CHOLECALCIFEROL 125 MCG (5000 IU) TABLET PO SCH (08:26)
[2022-08-16] MEDS: METOPROLOL TARTRATE 25 MG TAB PO SCH ×2 (08:26→20:48)
[2022-08-16] MEDS: amLODIPine 5 MG TAB PO SCH ×2 (08:26→20:48)
[2022-08-16] MEDS: hydrALAZINE HCL 50 MG TAB PO SCH ×2 (08:26→20:48)
[2022-08-16] MEDS: ZINC SULFATE 220 MG CAP PO SCH (08:26)
[2022-08-16] MEDS: hydroCHLOROthiazide 12.5 MG CAP PO SCH (08:26)
[2022-08-16] MEDS: predniSONE 10 MG TAB PO SCH (08:26)
[2022-08-16] MEDS: ASCORBIC ACID 500 MG TAB PO SCH ×2 (08:26→20:48)
[2022-08-16] MEDS: MAGNESIUM OXIDE 400 MG TAB PO SCH (08:26)
[2022-08-16 11:35] LABS: Glucose,Whole Blood 188 mg/dL (70-110)
--- NOTE | 2022-08-16 12:55 | P.PN ---
Subjective Progress Note Date: 08/16/22 Patient is an 82-year-old male for history of asbestosis, diabetes mellitus type 2, hypertension, and dyslipidemia who presented to the ER with complaints of shortness of breath. On arrival to the ER and was found to have significant vital sign derangement with a pulse of 104, respiratory rate 26, blood pressure 186/88, and room air pulse ox of 54. He was placed on BiPAP and had an improvement in FiO2 to 95%. Laboratory analysis was remarkable for mildly elevated d-dimer of 1.11, sodium 135, glucose 248, lactic acid 3.2, bilirubin 1.7, and COVID-19 testing was positive. CTA chest demonstrated extensive pulmonary infiltrates with pulmonary emphysema. He was admitted to the ICU and was transitioned to Air. Patient seen and examined at bedside. Breathing is stable. He is on 4L NC. General: ill appearing, mild distress, appears at stated age Derm: warm, dry Head: atraumatic, normocephalic, symmetric Eyes: EOMI, no lid lag, anicteric sclera Mouth: no lip lesion, mucus membranes moist Cardiovascular: S1S2 reg, no murmur Lungs: Decrease bs bilateral, no rhonchi, no rales , no accessory muscle use Ext: no gross muscle atrophy, no edema, no contractures Neuro: no focal neuro deficits Psych: Alert, oriented, appropriate affect #COVID-19 Pneumonia #Acute Hypoxic respiratory failure #Hx Asbestosis - Dexamethasone - Albuterol PRN - Cefepime - Ferritin, CRP, ESR mildly elevated - Pro calcitonin mildly elevated - Follow CXR - Pulmonology on board #Leukocytosis - Steroid induced - Continue to monitor #Lactic acidosis - Resolved - Stop IVF and encourage hydration by mouth #DM 2 with hyperglycemia - Hold metformin - A1C 7.2 - SSI, levemir - Accucheck ACHS with hypoglycemic precautions #Resistant HTN - Catapres patch - Norvasc, Hydralazine, ARB, BB Objective - Vital Signs Vital signs: Vital Signs Temp 98.0 F 08/16/22 07:58 Pulse 81 08/16/22 08:25 Resp 18 08/16/22 08:25 BP 125/67 08/16/22 07:58 Pulse Ox 95 08/16/22 11:12 FiO2 40 08/13/22 11:05 Intake & Output 08/15/22 08/16/22 08/16/22 18:59 06:59 18:59 Intake Total 100 260 Balance 100 260 Intake: IV 160 Sodium Chloride 0.9% 1, 160 000 ml @ 20 mls/hr IV . Q24H [facility] Rx#:[id number] Intake, IV Titration 100 100 Amount Cefepime 2 gm In Sodium 100 100 Chloride 0.9% 100 ml @ 25 mls/hr IVPB Q8HR [facility] Rx# :[id number] Other: Voiding Method Toilet - Labs CBC & Chem 7: 08/13/22 05:53 08/13/22 05:53 Labs: Abnormal Lab Results - Last 24 Hours (Table) 08/15/22 08/15/22 08/16/22 Range/Units 17:00 20:28 11:33 POC Glucose (mg/dL) 304 H 175 H 188 H (70-110) mg/dL Microbiology - Last 24 Hours (Table) 08/11/22 00:23 Gram Stain - Final Sputum Sputum Culture - Final Laura albicans Pseudomonas fluorescens/putida
--- NOTE | 2022-08-16 14:39 | P.PN ---
Subjective Progress Note Date: 08/16/22 Principal diagnosis: Acute hypoxic respiratory failure secondary to COVID-19 pneumonia This is an 82-year-old white male with history of type 2 diabetes, benign essential hypertension, dyslipidemia, patient is not COVID-19 vaccinated. Patient presented to the ER yesterday with 2-3 weeks history of cough, shortness of breath, and burning sensation in the chest. Apparently upon arrival to the ER, the patient was quite hypoxic, his chest x-ray and CT angiogram of the chest showed bilateral interstitial pneumonia/infiltrates. COVID-19 testing came back positive. Patient required placement on BiPAP initially, and he was later transitioned to airvo at 55% FiO2 and 35 L flow. And he remains on that setting. Patient is feeling a bit better, nonetheless he continues to have intermittent cough and shortness of breath. His pro-calcitonin level was a bit elevated hence I recommended starting the patient empirically on cefepime. Although the presentation is clinically a presentation of COVID-19 pneumonia based on his symptoms and based on his chest x-ray and CT of the chest findings. Patient is already on the COVID-19 cocktail, patient and family declined the Remdesivir and requested ivermectin. CBC showed no evidence of leukocytosis. His d-dimer is 1.[address] angiogram of the chest. C-reactive protein is 8.5, LDH is 591. Reevaluated today 08/11/22, remains in the ICU, patient is still requiring high FiO2 45%, 35 L flow via airvo. Patient clinically seems better than expected considering his chest x-ray findings and considering his FiO2 requirement. He seems to be comfortable, not in distress, his pro-calcitonin level was slightly elevated and he was given antibiotics empirically remains on the COVID-19 cocktail. Patient is out of the therapeutic window for Remdesivir. Patient had remote smoking history and he had history of asbestos associated lung disease supposedly. WBC count is 13.9 hemoglobin 13.1. Normal renal profile is normal. Reevaluated today on 08/12/22, patient remains in the ICU as an overflow. Remains on FiO2 45%, and 55 L flow, he is on airvo. Not much of a change in the last 24 hours, patient is feeling better, he is on the COVID-19 cocktail, is also empirically on antibiotics for his slightly elevated pro calcitonin level. Patient responded well to diuretics yesterday, and chest x-ray is pending, plan to repeat his chest x-ray tomorrow. Reevaluated today on 08/13/22, patient remains in the ICU as an overflow. Patient is on 40% FiO2 and 35 L flow, today I am recommending that we try the patient on high flow nasal cannula at 15 L, and hopefully gradually titrated down. Chest x-ray is showing improvement in his interstitial infiltrates. Clinically the patient is feeling better, and I'm hoping we could get him transferred to the regular medical floor today if possible. Labs today are relatively unremarkable including CBC, basic metabolic profile, renal profile. Reevaluated today on 08/14/22, patient is doing well, he is now on 8 L high flow nasal cannula, O2 saturation is in the low 90s. Hardly any pulmonary symptoms, patient is doing well overall, and I have a feeling that once the patient is down to 5 L nasal cannula he could be considered for discharge home on home oxygen. In the meantime the patient remains on COVID-19 cocktail mostly. WBC count is 13.3 hemoglobin is 13.0 a left lites are normal renal profile is normal, remains on cefepime empirically. Chest x-ray from yesterday showed mostly chronic changes and bilateral peripheral opacities consistent with COVID- 19 infection Reevaluated today on 08/16/22, patient remains on the medical floor, patient remains on 8 L high flow nasal cannula, not much of a change, he is feeling better overall, but clinically he is not different from the last couple of days. He remains on relatively high FiO2, continues to have crackles on physical examination bilaterally, and obviously is not quite ready for any discharge planning until his FiO2 is down to 5 L. I'm recommending a follow-up chest x- ray in a.m., and in the meantime continue present supportive care measures. Objective - Vital Signs Vital signs: Vital Signs Temp 98.0 F 08/16/22 07:58 Pulse 81 08/16/22 08:25 Resp 18 08/16/22 08:25 BP 125/67 08/16/22 07:58 Pulse Ox 95 08/16/22 11:12 FiO2 40 08/13/22 11:05 Intake & Output 08/15/22 08/16/22 08/16/22 18:59 06:59 18:59 Intake Total 100 260 Balance 100 260 Intake: IV 160 Sodium Chloride 0.9% 1, 160 000 ml @ 20 mls/hr IV . Q24H [facility] Rx#:[id number] Intake, IV Titration 100 100 Amount Cefepime 2 gm In Sodium 100 100 Chloride 0.9% 100 ml @ 25 mls/hr IVPB Q8HR [facility] Rx# :[id number] Other: Voiding Method Toilet - Exam Physical Exam: Revealed an 82-year-old white male, pleasant, in no distress on 8 L high flow nasal cannula Head: Atraumatic, normocephalic. HEENT:[Neck is supple.] [No neck masses.] [No thyromegaly.] [No JVD.] Chest: Minimal crackles at the bases bilaterally, left more so than right. Cardiac Exam: [Normal S1 and S2, no S3 gallop, no murmur.] Abdomen: [Soft, nontender, no megaly, no rebound, no guarding, normal bowel sounds.] Extremities: [No clubbing, no edema, no cyanosis.] Neurological Exam: [No focal neurologic deficit.] Alert and oriented 3. Psychiatric: Normal mood affect and normal mental status examination. Skin: No rashes. - Labs CBC & Chem 7: 08/13/22 05:53 08/13/22 05:53 Labs: Abnormal Lab Results - Last 24 Hours (Table) 08/15/22 08/15/22 08/16/22 Range/Units 17:00 20:28 11:33 POC Glucose (mg/dL) 304 H 175 H 188 H (70-110) mg/dL Microbiology - Last 24 Hours (Table) 08/11/22 00:23 Gram Stain - Final Sputum Sputum Culture - Final Laura albicans Pseudomonas fluorescens/putida Assessment and Plan Assessment: Impression: Acute hypoxic respiratory failure secondary to COVID-19 pneumonia Type 2 diabetes. Benign essential hypertension. Dyslipidemia. 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 nonvaccinated Recommendation: Continue COVID-19 cocktail. Continue steroids/prednisone. 30 mg by mouth daily will need to be tapered Continue Lovenox. Continue cefepime. Intermittent gentle diuresis Continue to titrate FiO2 down and once he is down to 5 L, consider discharge planning Repeat chest x-ray in a.m. We will continue to follow. Time with Patient: Less than 30
[2022-08-16 16:37] LABS: Glucose,Whole Blood 430 mg/dL (70-110)
[2022-08-16] MEDS: ACETAMINOPHEN TAB 325 MG TAB PO PRN (16:46)
[2022-08-16 20:40] LABS: Glucose,Whole Blood 118 mg/dL (70-110)
[2022-08-16] MEDS: cloNIDine 0.1 MG/24HR PATCH TRANSDERM SCH (20:48)
[2022-08-16] MEDS: INSULIN DETEMIR (LEVEMIR) 100 UNIT/ML SYR SQ SCH (20:54)
[2022-08-17 06:20] LABS: Glucose,Whole Blood 89 mg/dL (70-110)
[2022-08-17] MEDS: SODIUM CHLORIDE 0.9% 1,000 ML IV SCH (06:22)
[2022-08-17] MEDS: INSULIN ASPART (NovoLOG) 100 UNIT/ML VIAL SQ SCH ×4 (06:22→21:00)
[2022-08-17] MEDS: ALBUTEROL HFA INHALER INHALATION SCH ×4 (08:01→20:36)
[2022-08-17] MEDS: ENOXAPARIN 40 MG/0.4 ML SYRINGE SQ SCH (08:03)
[2022-08-17] MEDS: CEFEPIME 2 GM in SODIUM CHLORIDE 0.9% 100 ML IVPB SCH (08:04)
[2022-08-17] MEDS: MAGNESIUM OXIDE 400 MG TAB PO SCH (08:05)
[2022-08-17] MEDS: ASCORBIC ACID 500 MG TAB PO SCH ×2 (08:05→21:00)
[2022-08-17] MEDS: LOSARTAN 50 MG TAB PO SCH (08:05)
[2022-08-17] MEDS: hydrALAZINE HCL 50 MG TAB PO SCH ×2 (08:05→21:00)
[2022-08-17] MEDS: predniSONE 10 MG TAB PO SCH (08:05)
[2022-08-17] MEDS: hydroCHLOROthiazide 12.5 MG CAP PO SCH (08:05)
[2022-08-17] MEDS: METOPROLOL TARTRATE 25 MG TAB PO SCH ×2 (08:05→21:00)
[2022-08-17] MEDS: CHOLECALCIFEROL 125 MCG (5000 IU) TABLET PO SCH (08:05)
[2022-08-17] MEDS: ZINC SULFATE 220 MG CAP PO SCH (08:05)
[2022-08-17] MEDS: amLODIPine 5 MG TAB PO SCH ×2 (08:05→21:00)
--- NOTE | 2022-08-17 11:24 | P.PN ---
Subjective Progress Note Date: 08/17/22 Patient is an 82-year-old male for history of asbestosis, diabetes mellitus type 2, hypertension, and dyslipidemia who presented to the ER with complaints of shortness of breath. On arrival to the ER and was found to have significant vital sign derangement with a pulse of 104, respiratory rate 26, blood pressure 186/88, and room air pulse ox of 54. He was placed on BiPAP and had an improvement in FiO2 to 95%. Laboratory analysis was remarkable for mildly elevated d-dimer of 1.11, sodium 135, glucose 248, lactic acid 3.2, bilirubin 1.7, and COVID-19 testing was positive. CTA chest demonstrated extensive pulmonary infiltrates with pulmonary emphysema. He was admitted to the ICU and was transitioned to Air. Patient seen and examined at bedside. Breathing is stable. He is on 6L HFNC. Sleeping comfortably. General: ill appearing, mild distress, appears at stated age Derm: warm, dry Head: atraumatic, normocephalic, symmetric Eyes: EOMI, no lid lag, anicteric sclera Mouth: no lip lesion, mucus membranes moist Cardiovascular: S1S2 reg, no murmur Lungs: Decrease bs bilateral, no rhonchi, no rales , no accessory muscle use Ext: no gross muscle atrophy, no edema, no contractures Neuro: no focal neuro deficits Psych: Alert, oriented, appropriate affect #COVID-19 Pneumonia #Acute Hypoxic respiratory failure #Hx Asbestosis - Dexamethasone - Albuterol PRN - Cefepime - Ferritin, CRP, ESR mildly elevated - Pro calcitonin mildly elevated - Follow CXR - Pulmonology on board #Leukocytosis - Steroid induced - Continue to monitor #Lactic acidosis - Resolved - Stop IVF and encourage hydration by mouth #DM 2 with hyperglycemia - Hold metformin - A1C 7.2 - SSI, levemir - Accucheck ACHS with hypoglycemic precautions #Resistant HTN - Catapres patch - Norvasc, Hydralazine, ARB, BB Objective - Vital Signs Vital signs: Vital Signs Temp 98.0 F 08/17/22 07:53 Pulse 69 08/17/22 07:53 Resp 20 08/17/22 07:53 BP 165/77 08/17/22 07:53 Pulse Ox 90 L 08/17/22 07:53 FiO2 40 08/13/22 11:05 Intake & Output 08/16/22 08/17/22 08/17/22 18:59 06:59 18:59 Intake Total 540 Balance 540 Intake: Intake, IV Titration 300 Amount Cefepime 2 gm In Sodium 200 Chloride 0.9% 100 ml @ 25 mls/hr IVPB Q8HR [facility] Rx# :[id number] Sodium Chloride 0.9% 1, 100 000 ml @ 20 mls/hr IV . Q24H [facility] Rx#:[id number] Oral 240 Other: Voiding Method Toilet # Voids 4 4 1 - Labs CBC & Chem 7: 08/13/22 05:53 08/13/22 05:53 Labs: Abnormal Lab Results - Last 24 Hours (Table) 08/16/22 08/16/22 08/16/22 Range/Units 11:33 16:35 20:38 POC Glucose (mg/dL) 188 H 430 H 118 H (70-110) mg/dL
[2022-08-17 11:36] LABS: Glucose,Whole Blood 167 mg/dL (70-110)
--- NOTE | 2022-08-17 15:29 | P.PN ---
Subjective Progress Note Date: 08/17/22 This is an 82-year-old white male with history of type 2 diabetes, benign essential hypertension, dyslipidemia, patient is not COVID-19 vaccinated. Patient presented to the ER yesterday with 2-3 weeks history of cough, shortness of breath, and burning sensation in the chest. Apparently upon arrival to the ER, the patient was quite hypoxic, his chest x-ray and CT angiogram of the chest showed bilateral interstitial pneumonia/infiltrates. COVID-19 testing came back positive. Patient required placement on BiPAP initially, and he was later transitioned to airvo at 55% FiO2 and 35 L flow. And he remains on that setting. Patient is feeling a bit better, nonetheless he continues to have intermittent cough and shortness of breath. His pro-calcitonin level was a bit elevated hence I recommended starting the patient empirically on cefepime. Although the presentation is clinically a presentation of COVID-19 pneumonia based on his symptoms and based on his chest x-ray and CT of the chest findings. Patient is already on the COVID-19 cocktail, patient and family declined the Remdesivir and requested ivermectin. CBC showed no evidence of leukocytosis. His d-dimer is 1.[address] angiogram of the chest. C-reactive protein is 8.5, LDH is 591. Reevaluated today 08/11/22, remains in the ICU, patient is still requiring high FiO2 45%, 35 L flow via airvo. Patient clinically seems better than expected considering his chest x-ray findings and considering his FiO2 requirement. He seems to be comfortable, not in distress, his pro-calcitonin level was slightly elevated and he was given antibiotics empirically remains on the COVID-19 cocktail. Patient is out of the therapeutic window for Remdesivir. Patient had remote smoking history and he had history of asbestos associated lung disease supposedly. WBC count is 13.9 hemoglobin 13.1. Normal renal profile is normal. Reevaluated today on 08/12/22, patient remains in the ICU as an overflow. Remains on FiO2 45%, and 55 L flow, he is on airvo. Not much of a change in the last 24 hours, patient is feeling better, he is on the COVID-19 cocktail, is also empirically on antibiotics for his slightly elevated pro calcitonin level. Patient responded well to diuretics yesterday, and chest x-ray is pending, plan to repeat his chest x-ray tomorrow. Reevaluated today on 08/13/22, patient remains in the ICU as an overflow. David parekh is on 40% FiO2 and 35 L flow, today I am recommending that we try the patient on high flow nasal cannula at 15 L, and hopefully gradually titrated down. Chest x-ray is showing improvement in his interstitial infiltrates. Clinically the patient is feeling better, and I'm hoping we could get him transferred to the regular medical floor today if possible. Labs today are relatively unremarkable including CBC, basic metabolic profile, renal profile. Reevaluated today on 08/14/22, patient is doing well, he is now on 8 L high flow nasal cannula, O2 saturation is in the low 90s. Hardly any pulmonary symptoms, patient is doing well overall, and I have a feeling that once the patient is down to 5 L nasal cannula he could be considered for discharge home on home oxygen. In the meantime the patient remains on COVID-19 cocktail mostly. WBC count is 13.3 hemoglobin is 13.0 a left lites are normal renal profile is normal, remains on cefepime empirically. Chest x-ray from yesterday showed mostly chronic changes and bilateral peripheral opacities consistent with COVID- 19 infection The patient is seen today 08/15/2022 in follow-up on the regular medical floor. He sitting up in a chair at the bedside. Awake and alert in no acute distress. Still with some cough and congestion. Still requiring 8 L high flow nasal cannula. skin culture was positive for Laura and Pseudomonas fluor escence/putida. He is continued on cefepime along with bronchodilators. Remains on vitamin supplements. Lovenox for DVT prophylaxis. Prednisone taper. The patient is seen today 08/17/2022 in follow-up on the regular medical floor. He is sitting up in bed. Awake and alert in no acute distress. Maintaining O2 saturations in the 90s on 6 L/m per nasal cannula. Dyspneic with exertion. He is afebrile. Hemodynamically stable. Urine culture was positive for Laura and Pseudomonas fluorescence. Blood glucose 167. He's completed his course of cefepime. He remains on Lovenox for DVT prophylaxis. Prednisone taper. Vitamin supplements. Objective - Vital Signs Vital signs: Vital Signs Temp 98.0 F 08/17/22 07:53 Pulse 69 08/17/22 07:53 Resp 20 08/17/22 07:53 BP 165/77 08/17/22 07:53 Pulse Ox 90 L 08/17/22 07:53 FiO2 40 08/13/22 11:05 Intake & Output 08/16/22 08/17/22 08/17/22 18:59 06:59 18:59 Intake Total 540 Balance 540 Intake: Intake, IV Titration 300 Amount Cefepime 2 gm In Sodium 200 Chloride 0.9% 100 ml @ 25 mls/hr IVPB Q8HR [facility] Rx# :[id number] Sodium Chloride 0.9% 1, 100 000 ml @ 20 mls/hr IV . Q24H [facility] Rx#:[id number] Oral 240 Other: Voiding Method Toilet # Voids 4 4 1 - Exam GENERAL EXAM: Alert, 82-year-old male patient, on 6 L high flow nasal cannula, fairly comfortable in no apparent distress. HEAD: Normocephalic. EYES: Normal reaction of pupils, equal size. NOSE: Clear with pink turbinates. THROAT: No erythema or exudates. NECK: No masses, no JVD. CHEST: No chest wall deformity. LUNGS: Equal air entry with crackles in the bilateral bases. CVS: S1 and S2 normal with no audible murmur, regular rhythm. ABDOMEN: No hepatosplenomegaly, normal bowel sounds, no guarding or rigidity. SPINE: No scoliosis or deformity SKIN: No rashes CENTRAL NERVOUS SYSTEM: No focal deficits, tone is normal in all 4 extremities. EXTREMITIES: There is no peripheral edema. No clubbing, no cyanosis. Peripheral pulses are intact. - Labs CBC & Chem 7: 08/13/22 05:53 08/13/22 05:53 Labs: Abnormal Lab Results - Last 24 Hours (Table) 08/16/22 08/16/22 08/17/22 Range/Units 16:35 20:38 11:35 POC Glucose (mg/dL) 430 H 118 H 167 H (70-110) mg/dL Assessment and Plan Assessment: Acute hypoxic respiratory failure secondary to COVID-19 pneumonia, nonvaccinated Pseudomonas fluorescence in sputum culture, currently on cefepime Type 2 diabetes. Benign essential hypertension. Dyslipidemia. 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 Plan: The patient was seen and evaluated Continue Lovenox, prednisone, vitamin supplements Discontinue cefepime Continue to titrate the FiO2 as tolerated Probable discharge in the a.m. with home oxygen We will continue to follow I have personally seen and examined the patient, performed the documentation and the assessment and plan as written. Number of minutes spent on the visit: 10.
[2022-08-17 16:29] LABS: Glucose,Whole Blood 282 mg/dL (70-110)
[2022-08-17 20:43] LABS: Glucose,Whole Blood 166 mg/dL (70-110)
[2022-08-17] MEDS: INSULIN DETEMIR (LEVEMIR) 100 UNIT/ML SYR SQ SCH (21:00)
[2022-08-18 05:49] LABS: Glucose,Whole Blood 63 mg/dL (70-110)
[2022-08-18] MEDS: SODIUM CHLORIDE 0.9% 1,000 ML IV SCH (06:03)
[2022-08-18 06:05] LABS: Glucose,Whole Blood 67 mg/dL (70-110)
[2022-08-18 06:20] LABS: Glucose,Whole Blood 68 mg/dL (70-110)
[2022-08-18] MEDS: INSULIN ASPART (NovoLOG) 100 UNIT/ML VIAL SQ SCH ×4 (06:27→20:25)
[2022-08-18 06:33] LABS: Glucose,Whole Blood 80 mg/dL (70-110)
[2022-08-18] MEDS: ALBUTEROL HFA INHALER INHALATION SCH ×4 (07:37→22:28)
[2022-08-18] MEDS: predniSONE 10 MG TAB PO SCH (08:31)
[2022-08-18] MEDS: MAGNESIUM OXIDE 400 MG TAB PO SCH (08:31)
[2022-08-18] MEDS: ENOXAPARIN 40 MG/0.4 ML SYRINGE SQ SCH (08:31)
[2022-08-18] MEDS: METOPROLOL TARTRATE 25 MG TAB PO SCH ×2 (08:31→20:24)
[2022-08-18] MEDS: ASCORBIC ACID 500 MG TAB PO SCH ×2 (08:32→20:25)
[2022-08-18] MEDS: CHOLECALCIFEROL 125 MCG (5000 IU) TABLET PO SCH (08:32)
[2022-08-18] MEDS: LOSARTAN 50 MG TAB PO SCH (08:32)
[2022-08-18] MEDS: hydrALAZINE HCL 50 MG TAB PO SCH ×2 (08:32→20:25)
[2022-08-18] MEDS: ZINC SULFATE 220 MG CAP PO SCH (08:32)
[2022-08-18] MEDS: hydroCHLOROthiazide 12.5 MG CAP PO SCH (08:32)
[2022-08-18] MEDS: amLODIPine 5 MG TAB PO SCH ×2 (08:34→20:25)
[2022-08-18 11:24] LABS: Glucose,Whole Blood 184 mg/dL (70-110)
--- NOTE | 2022-08-18 14:29 | P.PN ---
Subjective Progress Note Date: 08/18/22 Patient is an 82-year-old male for history of asbestosis, diabetes mellitus type 2, hypertension, and dyslipidemia who presented to the ER with complaints of shortness of breath. On arrival to the ER and was found to have significant vital sign derangement with a pulse of 104, respiratory rate 26, blood pressure 186/88, and room air pulse ox of 54. He was placed on BiPAP and had an improvement in FiO2 to 95%. Laboratory analysis was remarkable for mildly elevated d-dimer of 1.11, sodium 135, glucose 248, lactic acid 3.2, bilirubin 1.7, and COVID-19 testing was positive. CTA chest demonstrated extensive pulmonary infiltrates with pulmonary emphysema. He was admitted to the ICU and was transitioned to Air. Patient seen and examined at bedside. Breathing is stable. He is on 6L HFNC. He does desaturate into the 80's with exertion. General: ill appearing, mild distress, appears at stated age Derm: warm, dry Head: atraumatic, normocephalic, symmetric Eyes: EOMI, no lid lag, anicteric sclera Mouth: no lip lesion, mucus membranes moist Cardiovascular: S1S2 reg, no murmur Lungs: Decrease bs bilateral, no rhonchi, no rales , no accessory muscle use Ext: no gross muscle atrophy, no edema, no contractures Neuro: no focal neuro deficits Psych: Alert, oriented, appropriate affect #COVID-19 Pneumonia #Acute Hypoxic respiratory failure #Hx Asbestosis - Dexamethasone - Albuterol PRN - Cefepime completed - Ferritin, CRP, ESR mildly elevated - Pro calcitonin mildly elevated - Follow CXR - Pulmonology on board #Leukocytosis - Steroid induced - Continue to monitor #Lactic acidosis - Resolved - Stop IVF and encourage hydration by mouth #DM 2 with hyperglycemia - Hold metformin - A1C 7.2 - SSI, levemir - Accucheck ACHS with hypoglycemic precautions #Resistant HTN - Catapres patch - Norvasc, Hydralazine, ARB, BB Objective - Vital Signs Vital signs: Vital Signs Temp 97.9 F 08/18/22 07:48 Pulse 71 08/18/22 07:48 Resp 18 08/18/22 07:48 BP 153/72 08/18/22 07:48 Pulse Ox 96 08/18/22 07:48 FiO2 40 08/13/22 11:05 Intake & Output 08/17/22 08/18/22 08/18/22 18:59 06:59 18:59 Output Total 550 Balance -550 Output: Urine 550 Other: Voiding Method Toilet # Voids 1 1 - Labs CBC & Chem 7: 08/13/22 05:53 08/13/22 05:53 Labs: Abnormal Lab Results - Last 24 Hours (Table) 08/17/22 08/17/22 08/18/22 Range/Units 16:28 20:35 05:46 POC Glucose (mg/dL) 282 H 166 H 63 L (70-110) mg/dL 08/18/22 08/18/22 08/18/22 Range/Units 06:03 06:17 11:23 POC Glucose (mg/dL) 67 L 68 L 184 H (70-110) mg/dL
--- NOTE | 2022-08-18 15:01 | P.PN ---
Subjective Progress Note Date: 08/18/22 This is an 82-year-old white male with history of type 2 diabetes, benign essential hypertension, dyslipidemia, patient is not COVID-19 vaccinated. Patient presented to the ER yesterday with 2-3 weeks history of cough, shortness of breath, and burning sensation in the chest. Apparently upon arrival to the ER, the patient was quite hypoxic, his chest x-ray and CT angiogram of the chest showed bilateral interstitial pneumonia/infiltrates. COVID-19 testing came back positive. Patient required placement on BiPAP initially, and he was later transitioned to airvo at 55% FiO2 and 35 L flow. And he remains on that setting. Patient is feeling a bit better, nonetheless he continues to have intermittent cough and shortness of breath. His pro-calcitonin level was a bit elevated hence I recommended starting the patient empirically on cefepime. Although the presentation is clinically a presentation of COVID-19 pneumonia based on his symptoms and based on his chest x-ray and CT of the chest findings. Patient is already on the COVID-19 cocktail, patient and family declined the Remdesivir and requested ivermectin. CBC showed no evidence of leukocytosis. His d-dimer is 1.[address] angiogram of the chest. C-reactive protein is 8.5, LDH is 591. Reevaluated today 08/11/22, remains in the ICU, patient is still requiring high FiO2 45%, 35 L flow via airvo. Patient clinically seems better than expected considering his chest x-ray findings and considering his FiO2 requirement. He seems to be comfortable, not in distress, his pro-calcitonin level was slightly elevated and he was given antibiotics empirically remains on the COVID-19 cocktail. Patient is out of the therapeutic window for Remdesivir. Patient had remote smoking history and he had history of asbestos associated lung disease supposedly. WBC count is 13.9 hemoglobin 13.1. Normal renal profile is normal. Reevaluated today on 08/12/22, patient remains in the ICU as an overflow. Remains on FiO2 45%, and 55 L flow, he is on airvo. Not much of a change in the last 24 hours, patient is feeling better, he is on the COVID-19 cocktail, is also empirically on antibiotics for his slightly elevated pro calcitonin level. Patient responded well to diuretics yesterday, and chest x-ray is pending, plan to repeat his chest x-ray tomorrow. Reevaluated today on 08/13/22, patient remains in the ICU as an overflow. David parekh is on 40% FiO2 and 35 L flow, today I am recommending that we try the patient on high flow nasal cannula at 15 L, and hopefully gradually titrated down. Chest x-ray is showing improvement in his interstitial infiltrates. Clinically the patient is feeling better, and I'm hoping we could get him transferred to the regular medical floor today if possible. Labs today are relatively unremarkable including CBC, basic metabolic profile, renal profile. Reevaluated today on 08/14/22, patient is doing well, he is now on 8 L high flow nasal cannula, O2 saturation is in the low 90s. Hardly any pulmonary symptoms, patient is doing well overall, and I have a feeling that once the patient is down to 5 L nasal cannula he could be considered for discharge home on home oxygen. In the meantime the patient remains on COVID-19 cocktail mostly. WBC count is 13.3 hemoglobin is 13.0 a left lites are normal renal profile is normal, remains on cefepime empirically. Chest x-ray from yesterday showed mostly chronic changes and bilateral peripheral opacities consistent with COVID- 19 infection The patient is seen today 08/15/2022 in follow-up on the regular medical floor. He sitting up in a chair at the bedside. Awake and alert in no acute distress. Still with some cough and congestion. Still requiring 8 L high flow nasal cannula. skin culture was positive for Laura and Pseudomonas fluor escence/putida. He is continued on cefepime along with bronchodilators. Remains on vitamin supplements. Lovenox for DVT prophylaxis. Prednisone taper. The patient is seen today 08/17/2022 in follow-up on the regular medical floor. He is sitting up in bed. Awake and alert in no acute distress. Maintaining O2 saturations in the 90s on 6 L/m per nasal cannula. Dyspneic with exertion. He is afebrile. Hemodynamically stable. Urine culture was positive for Laura and Pseudomonas fluorescence. Blood glucose 167. He's completed his course of cefepime. He remains on Lovenox for DVT prophylaxis. Prednisone taper. Vitamin supplements. The patient is seen today 08/18/2022 in follow-up on the regular medical floor. He is resting comfortably in bed. Awake and alert in no acute distress. He is down to oxygen at 5 L/m per nasal cannula. No IV fluids. He's been afebrile. Hemodynamically stable. Sputum culture was positive for Pseudomonas and Laura. Blood glucose 184. He's completed his course of cefepime. He remains on Lovenox for DVT prophylaxis. Prednisone taper. Vitamin supplements. Objective - Vital Signs Vital signs: Vital Signs Temp 98.3 F 08/18/22 14:40 Pulse 70 08/18/22 14:40 Resp 20 08/18/22 14:40 BP 104/55 08/18/22 14:40 Pulse Ox 91 L 08/18/22 14:40 FiO2 40 08/13/22 11:05 Intake & Output 08/17/22 08/18/22 08/18/22 18:59 06:59 18:59 Output Total 550 Balance -550 Output: Urine 550 Other: Voiding Method Toilet # Voids 1 1 - Exam GENERAL EXAM: Alert, 82-year-old male, on 5 L high flow nasal cannula, fairly comfortable in no apparent distress. HEAD: Normocephalic. EYES: Normal reaction of pupils, equal size. NOSE: Clear with pink turbinates. THROAT: No erythema or exudates. NECK: No masses, no JVD. CHEST: No chest wall deformity. LUNGS: Equal air entry with crackles in the bilateral bases. CVS: S1 and S2 normal with no audible murmur, regular rhythm. ABDOMEN: No hepatosplenomegaly, normal bowel sounds, no guarding or rigidity. SPINE: No scoliosis or deformity SKIN: No rashes CENTRAL NERVOUS SYSTEM: No focal deficits, tone is normal in all 4 extremities. EXTREMITIES: There is no peripheral edema. No clubbing, no cyanosis. Peripheral pulses are intact. - Labs CBC & Chem 7: 08/13/22 05:53 08/13/22 05:53 Labs: Abnormal Lab Results - Last 24 Hours (Table) 08/17/22 08/17/22 08/18/22 Range/Units 16:28 20:35 05:46 POC Glucose (mg/dL) 282 H 166 H 63 L (70-110) mg/dL 08/18/22 08/18/22 08/18/22 Range/Units 06:03 06:17 11:23 POC Glucose (mg/dL) 67 L 68 L 184 H (70-110) mg/dL Assessment and Plan Assessment: Acute hypoxic respiratory failure secondary to COVID-19 pneumonia, nonvaccinated. Currently down to 5 L nasal cannula Pseudomonas fluorescence in sputum culture, currently on cefepime Type 2 diabetes. Benign essential hypertension. Dyslipidemia. 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 Plan: The patient was seen and evaluated Improved and on 5 L nasal cannula Cleared for discharge from the pulmonary standpoint Will require home oxygen Follow-up in the office in 1 week I have personally seen and examined the patient, performed the documentation and the assessment and plan as written. Number of minutes spent on the visit: 10.
[2022-08-18 16:28] LABS: Glucose,Whole Blood 358 mg/dL (70-110)
[2022-08-18 20:15] LABS: Glucose,Whole Blood 184 mg/dL (70-110)
[2022-08-18] MEDS: INSULIN DETEMIR (LEVEMIR) 100 UNIT/ML SYR SQ SCH (20:25)
[2022-08-19 06:25] LABS: Glucose,Whole Blood 82 mg/dL (70-110)
[2022-08-19] MEDS: SODIUM CHLORIDE 0.9% 1,000 ML IV SCH (06:34)
[2022-08-19] MEDS: INSULIN ASPART (NovoLOG) 100 UNIT/ML VIAL SQ SCH ×4 (06:34→20:36)
[2022-08-19] MEDS: ALBUTEROL HFA INHALER INHALATION SCH ×4 (07:07→20:22)
[2022-08-19 07:56] LABS: HCT 40.9 % (39.0-53.0); HGB 13.4 gm/dL (13.0-17.5); MCHC 32.8 g/dL (31.0-37.0); MCV 88.5 fL (80.0-100.0); Mean Platelet Volume 8.1; Platelet Count 308 k/uL (150-450); RBC 4.62 m/uL (4.30-5.90); RDW 12.8 % (11.5-15.5); WBC 14.1 k/uL (3.8-10.6)
[2022-08-19 08:13] LABS: African American GFR (CKD) >90 (>60 ml/min/1.73 sqM); Anion Gap 3 mmol/L; Blood Urea Nitrogen 23 mg/dL (9-20); Calcium 8.1 mg/dL (8.4-10.2); Carbon Dioxide 31 mmol/L (22-30); Chloride 100 mmol/L (98-107); Glucose 110 mg/dL (74-99); LDH 1027 U/L (313-618); Non-African American GFR(CKD) 81 (>60 ml/min/1.73 sqM); Potassium 3.8 mmol/L (3.5-5.1); Sodium 134 mmol/L (137-145)
--- NOTE | 2022-08-19 08:16 | XR ---
EXAMINATION TYPE: XR chest 1V portable DATE OF EXAM: 08/19/2022 7:18 AM COMPARISON: Chest radiographs from 08/13/2022 TECHNIQUE: XR chest 1V portable Portable AP radiograph of the chest. CLINICAL INDICATION:Male, 82 years old with history of SOB, worsening O2 sat; FINDINGS: Lungs/Pleura: Similar multifocal airspace opacities. No evidence of pneumothorax or pleural effusion. There is chronic interstitial prominence. Pulmonary vascularity: Unremarkable. Heart/mediastinum: Cardiomediastinal silhouette is enlarged and stable. Musculoskeletal: No acute osseous pathology. IMPRESSION: Slight increased density of the lungs with multifocal airspace opacities with superimposed chronic ch anges. No significant change from most recent x-ray.
[2022-08-19] MEDS: hydrALAZINE HCL 50 MG TAB PO SCH ×2 (08:44→20:36)
[2022-08-19] MEDS: CHOLECALCIFEROL 125 MCG (5000 IU) TABLET PO SCH (08:44)
[2022-08-19] MEDS: predniSONE 10 MG TAB PO SCH (08:44)
[2022-08-19] MEDS: hydroCHLOROthiazide 12.5 MG CAP PO SCH (08:44)
[2022-08-19] MEDS: ENOXAPARIN 40 MG/0.4 ML SYRINGE SQ SCH (08:44)
[2022-08-19] MEDS: ASCORBIC ACID 500 MG TAB PO SCH ×2 (08:44→20:36)
[2022-08-19] MEDS: METOPROLOL TARTRATE 25 MG TAB PO SCH ×2 (08:44→20:36)
[2022-08-19] MEDS: ZINC SULFATE 220 MG CAP PO SCH (08:45)
[2022-08-19] MEDS: amLODIPine 5 MG TAB PO SCH ×2 (08:45→20:36)
[2022-08-19] MEDS: MAGNESIUM OXIDE 400 MG TAB PO SCH (08:45)
[2022-08-19] MEDS: LOSARTAN 50 MG TAB PO SCH (08:45)
[2022-08-19 11:41] LABS: Glucose,Whole Blood 195 mg/dL (70-110)
[2022-08-19] MEDS: guaiFENesin 600 MG TABLET.ER PO SCH ×2 (13:27→20:40)
--- NOTE | 2022-08-19 13:57 | P.PN ---
Subjective Progress Note Date: 08/19/22 Patient is an 82-year-old male for history of asbestosis, diabetes mellitus type 2, hypertension, and dyslipidemia who presented to the ER with complaints of shortness of breath. On arrival to the ER and was found to have significant vital sign derangement with a pulse of 104, respiratory rate 26, blood pressure 186/88, and room air pulse ox of 54. He was placed on BiPAP and had an improvement in FiO2 to 95%. Laboratory analysis was remarkable for mildly elevated d-dimer of 1.11, sodium 135, glucose 248, lactic acid 3.2, bilirubin 1.7, and COVID-19 testing was positive. CTA chest demonstrated extensive pulmonary infiltrates with pulmonary emphysema. He was admitted to the ICU and was transitioned to AirVo. Patient seen and examined at bedside. Breathing is stable. Patient became hypoxic early this morning with O2 saturation in the 70s. He is currently on 15 L HFNC maintaining low 90s. General: ill appearing, mild distress, appears at stated age Derm: warm, dry Head: atraumatic, normocephalic, symmetric Eyes: EOMI, no lid lag, anicteric sclera Mouth: no lip lesion, mucus membranes moist Cardiovascular: S1S2 reg, no murmur Lungs: Decrease bs bilateral, no rhonchi, no rales , no accessory muscle use Ext: no gross muscle atrophy, no edema, no contractures Neuro: no focal neuro deficits Psych: Alert, oriented, appropriate affect #COVID-19 Pneumonia #Acute Hypoxic respiratory failure #Hx Asbestosis - Dexamethasone - Albuterol PRN - Cefepime completed - Ferritin, CRP, ESR mildly elevated - Pro calcitonin mildly elevated - Follow CXR - Pulmonology on board #Leukocytosis - Steroid induced - Continue to monitor #Lactic acidosis - Resolved - Stop IVF and encourage hydration by mouth #DM 2 with hyperglycemia - Hold metformin - A1C 7.2 - SSI, levemir - Accucheck ACHS with hypoglycemic precautions #Resistant HTN - Catapres patch - Norvasc, Hydralazine, ARB, BB Objective - Vital Signs Vital signs: Vital Signs Temp 98.1 F 08/19/22 07:31 Pulse 75 08/19/22 07:31 Resp 16 08/19/22 07:31 BP 133/69 08/19/22 07:31 Pulse Ox 90 L 08/19/22 13:09 FiO2 40 08/13/22 11:05 Intake & Output 08/18/22 08/19/22 08/19/22 18:59 06:59 18:59 Other: Voiding Method Toilet # Voids 1 3 - Labs CBC & Chem 7: 08/19/22 07:34 08/19/22 07:34 Labs: Abnormal Lab Results - Last 24 Hours (Table) 08/18/22 08/18/22 08/19/22 Range/Units 16:26 20:14 07:34 WBC 14.1 H (3.8-10.6) k/uL D-Dimer (<0.60) mg/L FEU Sodium (137-145) mmol/L Carbon Dioxide (22-30) mmol/L BUN (9-20) mg/dL Glucose (74-99) mg/dL POC Glucose (mg/dL) 358 H 184 H (70-110) mg/dL Calcium (8.4-10.2) mg/dL Ferritin (22.0-322.0) ng/mL Lactate Dehydrogenase (313-618) U/L 08/19/22 08/19/22 08/19/22 Range/Units 07:34 07:34 11:40 WBC (3.8-10.6) k/uL D-Dimer 0.88 H (<0.60) mg/L FEU Sodium 134 L (137-145) mmol/L Carbon Dioxide 31 H (22-30) mmol/L BUN 23 H (9-20) mg/dL Glucose 110 H (74-99) mg/dL POC Glucose (mg/dL) 195 H (70-110) mg/dL Calcium 8.1 L (8.4-10.2) mg/dL Ferritin 962.0 H (22.0-322.0) ng/mL Lactate Dehydrogenase 1027 H (313-618) U/L
[2022-08-19 16:39] LABS: Glucose,Whole Blood 382 mg/dL (70-110)
--- NOTE | 2022-08-19 16:55 | P.PN ---
Subjective Progress Note Date: 08/19/22 This is an 82-year-old white male with history of type 2 diabetes, benign essential hypertension, dyslipidemia, patient is not COVID-19 vaccinated. Patient presented to the ER yesterday with 2-3 weeks history of cough, shortness of breath, and burning sensation in the chest. Apparently upon arrival to the ER, the patient was quite hypoxic, his chest x-ray and CT angiogram of the chest showed bilateral interstitial pneumonia/infiltrates. COVID-19 testing came back positive. Patient required placement on BiPAP initially, and he was later transitioned to airvo at 55% FiO2 and 35 L flow. And he remains on that setting. Patient is feeling a bit better, nonetheless he continues to have intermittent cough and shortness of breath. His pro-calcitonin level was a bit elevated hence I recommended starting the patient empirically on cefepime. Although the presentation is clinically a presentation of COVID-19 pneumonia based on his symptoms and based on his chest x-ray and CT of the chest findings. Patient is already on the COVID-19 cocktail, patient and family declined the Remdesivir and requested ivermectin. CBC showed no evidence of leukocytosis. His d-dimer is 1.[address] angiogram of the chest. C-reactive protein is 8.5, LDH is 591. Reevaluated today 08/11/22, remains in the ICU, patient is still requiring high FiO2 45%, 35 L flow via airvo. Patient clinically seems better than expected considering his chest x-ray findings and considering his FiO2 requirement. He seems to be comfortable, not in distress, his pro-calcitonin level was slightly elevated and he was given antibiotics empirically remains on the COVID-19 cocktail. Patient is out of the therapeutic window for Remdesivir. Patient had remote smoking history and he had history of asbestos associated lung disease supposedly. WBC count is 13.9 hemoglobin 13.1. Normal renal profile is normal. Reevaluated today on 08/12/22, patient remains in the ICU as an overflow. Remains on FiO2 45%, and 55 L flow, he is on airvo. Not much of a change in the last 24 hours, patient is feeling better, he is on the COVID-19 cocktail, is also empirically on antibiotics for his slightly elevated pro calcitonin level. Patient responded well to diuretics yesterday, and chest x-ray is pending, plan to repeat his chest x-ray tomorrow. Reevaluated today on 08/13/22, patient remains in the ICU as an overflow. David parekh is on 40% FiO2 and 35 L flow, today I am recommending that we try the patient on high flow nasal cannula at 15 L, and hopefully gradually titrated down. Chest x-ray is showing improvement in his interstitial infiltrates. Clinically the patient is feeling better, and I'm hoping we could get him transferred to the regular medical floor today if possible. Labs today are relatively unremarkable including CBC, basic metabolic profile, renal profile. Reevaluated today on 08/14/22, patient is doing well, he is now on 8 L high flow nasal cannula, O2 saturation is in the low 90s. Hardly any pulmonary symptoms, patient is doing well overall, and I have a feeling that once the patient is down to 5 L nasal cannula he could be considered for discharge home on home oxygen. In the meantime the patient remains on COVID-19 cocktail mostly. WBC count is 13.3 hemoglobin is 13.0 a left lites are normal renal profile is normal, remains on cefepime empirically. Chest x-ray from yesterday showed mostly chronic changes and bilateral peripheral opacities consistent with COVID- 19 infection The patient is seen today 08/15/2022 in follow-up on the regular medical floor. He sitting up in a chair at the bedside. Awake and alert in no acute distress. Still with some cough and congestion. Still requiring 8 L high flow nasal cannula. skin culture was positive for Laura and Pseudomonas fluor escence/putida. He is continued on cefepime along with bronchodilators. Remains on vitamin supplements. Lovenox for DVT prophylaxis. Prednisone taper. The patient is seen today 08/17/2022 in follow-up on the regular medical floor. He is sitting up in bed. Awake and alert in no acute distress. Maintaining O2 saturations in the 90s on 6 L/m per nasal cannula. Dyspneic with exertion. He is afebrile. Hemodynamically stable. Urine culture was positive for Laura and Pseudomonas fluorescence. Blood glucose 167. He's completed his course of cefepime. He remains on Lovenox for DVT prophylaxis. Prednisone taper. Vitamin supplements. The patient is seen today 08/18/2022 in follow-up on the regular medical floor. He is resting comfortably in bed. Awake and alert in no acute distress. He is down to oxygen at 5 L/m per nasal cannula. No IV fluids. He's been afebrile. Hemodynamically stable. Sputum culture was positive for Pseudomonas and Laura. Blood glucose 184. He's completed his course of cefepime. He remains on Lovenox for DVT prophylaxis. Prednisone taper. Vitamin supplements. The patient is seen today 08/19/2022 in follow-up on the regular medical floor. He is currently sitting up in bed. Awake and alert in no acute distress. He did have some dyspnea on exertion and desaturations. He is back up to 15 L high flow nasal cannula. Chest x-ray continues to show increased densities the lungs with multifocal airspace opacities and superimposed chronic changes. No significant change from previous. Sputum was positive for Pseudomonas and Laura. Completed cefepime. White count 14.1. He will and 13.4. D-dimer 0.88. Sodium 134. Potassium 3.8. BUN 23. Creatinine 0.89. LDH 1071. He remains on Lovenox for DVT prophylaxis. Prednisone taper. Vitamin supplements. Objective - Vital Signs Vital signs: Vital Signs Temp 98.0 F 08/19/22 14:49 Pulse 68 08/19/22 14:49 Resp 17 08/19/22 14:49 BP 96/61 08/19/22 14:49 Pulse Ox 92 L 08/19/22 14:49 FiO2 40 08/13/22 11:05 Intake & Output 08/18/22 08/19/22 08/19/22 18:59 06:59 18:59 Other: Voiding Method Toilet # Voids 1 3 - Exam GENERAL EXAM: Alert, 82-year-old male, on 15 L high flow nasal cannula, fairly comfortable in no apparent distress. HEAD: Normocephalic. EYES: Normal reaction of pupils, equal size. NOSE: Clear with pink turbinates. THROAT: No erythema or exudates. NECK: No masses, no JVD. CHEST: No chest wall deformity. LUNGS: Equal air entry with crackles in the bilateral bases. CVS: S1 and S2 normal with no audible murmur, regular rhythm. ABDOMEN: No hepatosplenomegaly, normal bowel sounds, no guarding or rigidity. SPINE: No scoliosis or deformity SKIN: No rashes CENTRAL NERVOUS SYSTEM: No focal deficits, tone is normal in all 4 extremities. EXTREMITIES: There is no peripheral edema. No clubbing, no cyanosis. Peripher al pulses are intact. - Labs CBC & Chem 7: 08/19/22 07:34 08/19/22 07:34 Labs: Abnormal Lab Results - Last 24 Hours (Table) 08/18/22 08/19/22 08/19/22 Range/Units 20:14 07:34 07:34 WBC 14.1 H (3.8-10.6) k/uL D-Dimer 0.88 H (<0.60) mg/L FEU Sodium (137-145) mmol/L Carbon Dioxide (22-30) mmol/L BUN (9-20) mg/dL Glucose (74-99) mg/dL POC Glucose (mg/dL) 184 H (70-110) mg/dL Calcium (8.4-10.2) mg/dL Ferritin (22.0-322.0) ng/mL Lactate Dehydrogenase (313-618) U/L 08/19/22 08/19/22 08/19/22 Range/Units 07:34 11:40 16:38 WBC (3.8-10.6) k/uL D-Dimer (<0.60) mg/L FEU Sodium 134 L (137-145) mmol/L Carbon Dioxide 31 H (22-30) mmol/L BUN 23 H (9-20) mg/dL Glucose 110 H (74-99) mg/dL POC Glucose (mg/dL) 195 H 382 H (70-110) mg/dL Calcium 8.1 L (8.4-10.2) mg/dL Ferritin 962.0 H (22.0-322.0) ng/mL Lactate Dehydrogenase 1027 H (313-618) U/L Assessment and Plan Assessment: Acute hypoxic respiratory failure secondary to COVID-19 pneumonia, nonvaccinated. Currently back up to 15 L nasal cannula her chest x-ray remains unchanged Pseudomonas fluorescence in sputum culture, currently on cefepime Type 2 diabetes. Benign essential hypertension. Dyslipidemia. 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 Plan: The patient was seen and evaluated Chest x-ray, medications and labs reviewed Continue to titrate down the FiO2 as tolerated Will require home oxygen We will continue to follow I have personally seen and examined the patient, performed the documentation and the assessment and plan as written. Number of minutes spent on the visit: 10.
[2022-08-19 19:11] LABS: Glucose,Whole Blood 268 mg/dL (70-110)
[2022-08-19] MEDS: INSULIN DETEMIR (LEVEMIR) 100 UNIT/ML SYR SQ SCH (20:36)
[2022-08-20 05:49] LABS: Glucose,Whole Blood 111 mg/dL (70-110)
[2022-08-20] MEDS: INSULIN ASPART (NovoLOG) 100 UNIT/ML VIAL SQ SCH ×4 (05:52→20:48)
[2022-08-20] MEDS: ALBUTEROL HFA INHALER INHALATION SCH ×4 (07:47→19:36)
[2022-08-20] MEDS: ZINC SULFATE 220 MG CAP PO SCH (09:03)
[2022-08-20] MEDS: ASCORBIC ACID 500 MG TAB PO SCH ×2 (09:03→20:48)
[2022-08-20] MEDS: ENOXAPARIN 40 MG/0.4 ML SYRINGE SQ SCH (09:03)
[2022-08-20] MEDS: guaiFENesin 600 MG TABLET.ER PO SCH ×2 (09:03→20:48)
[2022-08-20] MEDS: predniSONE 10 MG TAB PO SCH (09:04)
[2022-08-20] MEDS: amLODIPine 5 MG TAB PO SCH ×2 (09:04→20:48)
[2022-08-20] MEDS: hydrALAZINE HCL 50 MG TAB PO SCH ×2 (09:04→20:48)
[2022-08-20] MEDS: hydroCHLOROthiazide 12.5 MG CAP PO SCH (09:04)
[2022-08-20] MEDS: CHOLECALCIFEROL 125 MCG (5000 IU) TABLET PO SCH (09:05)
[2022-08-20] MEDS: LOSARTAN 50 MG TAB PO SCH (09:05)
[2022-08-20] MEDS: MAGNESIUM OXIDE 400 MG TAB PO SCH (09:05)
[2022-08-20] MEDS: METOPROLOL TARTRATE 25 MG TAB PO SCH ×2 (09:05→20:48)
[2022-08-20] MEDS: SODIUM CHLORIDE 0.9% 1,000 ML IV SCH (09:08)
[2022-08-20 11:41] LABS: Glucose,Whole Blood 173 mg/dL (70-110)
--- NOTE | 2022-08-20 11:46 | P.PN ---
Subjective Progress Note Date: 08/20/22 Patient is an 82-year-old male for history of asbestosis, diabetes mellitus type 2, hypertension, and dyslipidemia who presented to the ER with complaints of shortness of breath. On arrival to the ER and was found to have significant vital sign derangement with a pulse of 104, respiratory rate 26, blood pressure 186/88, and room air pulse ox of 54. He was placed on BiPAP and had an improvement in FiO2 to 95%. Laboratory analysis was remarkable for mildly elevated d-dimer of 1.11, sodium 135, glucose 248, lactic acid 3.2, bilirubin 1.7, and COVID-19 testing was positive. CTA chest demonstrated extensive pulmonary infiltrates with pulmonary emphysema. He was admitted to the ICU and was transitioned to Air. Patient seen and examined at bedside. Breathing is stable. He is currently on 15 L HFNC maintaining mid 80s. General: ill appearing, mild distress, appears at stated age Derm: warm, dry Head: atraumatic, normocephalic, symmetric Eyes: EOMI, no lid lag, anicteric sclera Mouth: no lip lesion, mucus membranes moist Cardiovascular: S1S2 reg, no murmur Lungs: Decrease bs bilateral, no rhonchi, no rales , no accessory muscle use Ext: no gross muscle atrophy, no edema, no contractures Neuro: no focal neuro deficits Psych: Alert, oriented, appropriate affect #COVID-19 Pneumonia #Acute Hypoxic respiratory failure #Hx Asbestosis - Prednisone taper - Albuterol PRN - Cefepime completed - Ferritin, CRP, ESR mildly elevated - Pro calcitonin mildly elevated - Follow CXR - Pulmonology on board #Leukocytosis - Steroid induced - Continue to monitor #Lactic acidosis - Resolved - Stop IVF and encourage hydration by mouth #DM 2 with hyperglycemia - Hold metformin - A1C 7.2 - SSI, levemir - Accucheck ACHS with hypoglycemic precautions #Resistant HTN - Catapres patch - Norvasc, Hydralazine, ARB, BB Objective - Vital Signs Vital signs: Vital Signs Temp 98.0 F 08/20/22 07:30 Pulse 74 08/20/22 07:30 Resp 18 08/20/22 07:30 BP 143/75 08/20/22 07:30 Pulse Ox 85 L 08/20/22 07:47 FiO2 40 08/13/22 11:05 Intake & Output 08/19/22 08/20/22 08/20/22 18:59 06:59 18:59 Output Total 400 2000 Balance -400 -2000 Output: Urine 400 2000 Other: Voiding Method Urinal - Labs CBC & Chem 7: 08/19/22 07:34 08/19/22 07:34 Labs: Abnormal Lab Results - Last 24 Hours (Table) 08/19/22 08/19/22 08/20/22 Range/Units 16:38 19:09 05:47 POC Glucose (mg/dL) 382 H 268 H 111 H (70-110) mg/dL 08/20/22 Range/Units 11:40 POC Glucose (mg/dL) 173 H (70-110) mg/dL
--- NOTE | 2022-08-20 13:20 | P.PN ---
Subjective Progress Note Date: 08/20/22 Principal diagnosis: Shortness of breath. The patient is seen today 08/17/2022 in follow-up on the regular medical floor. He is sitting up in bed. Awake and alert in no acute distress. Maintaining O2 saturations in the 90s on 6 L/m per nasal cannula. Dyspneic with exertion. He is afebrile. Hemodynamically stable. Urine culture was positive for Laura and Pseudomonas fluorescence. Blood glucose 167. He's completed his course of cefepime. He remains on Lovenox for DVT prophylaxis. Prednisone taper. Vitamin supplements. The patient is seen today 08/18/2022 in follow-up on the regular medical floor. He is resting comfortably in bed. Awake and alert in no acute distress. He is down to oxygen at 5 L/m per nasal cannula. No IV fluids. He's been afebrile. Hemodynamically stable. Sputum culture was positive for Pseudomonas and Laura. Blood glucose 184. He's completed his course of cefepime. He remains on Lovenox for DVT prophylaxis. Prednisone taper. Vitamin supplements. The patient is seen today 08/19/2022 in follow-up on the regular medical floor. He is currently sitting up in bed. Awake and alert in no acute distress. He did have some dyspnea on exertion and desaturations. He is back up to 15 L high flow nasal cannula. Chest x-ray continues to show increased densities the lungs with multifocal airspace opacities and superimposed chronic changes. No significant change from previous. Sputum was positive for Pseudomonas and Cand mena. Completed cefepime. White count 14.1. He will and 13.4. D-dimer 0.88. Sodium 134. Potassium 3.8. BUN 23. Creatinine 0.89. LDH 1071. He remains on Lovenox for DVT prophylaxis. Prednisone taper. Vitamin supplements. Progress note dated 08/20/2022. The patient is seen today in room 451. The patient remains on 15 L high flow oxygen. No IV fluids. He does feel better today. He feels less short of breath. He states he had a pretty good night last night. No new labs today other than a glucose of 173. Laboratory data from yesterday are reviewed. Objective - Vital Signs Vital signs: Vital Signs Temp 98.0 F 08/20/22 07:30 Pulse 74 08/20/22 07:30 Resp 18 08/20/22 07:30 BP 143/75 08/20/22 07:30 Pulse Ox 85 L 08/20/22 07:47 FiO2 40 08/13/22 11:05 Intake & Output 08/19/22 08/20/22 08/20/22 18:59 06:59 18:59 Output Total 400 2000 Balance -400 -2000 Output: Urine 400 2000 Other: Voiding Method Urinal - Exam No acute distress, oriented 3. No respiratory distress. Currently on 15 L high flow oxygen. HEENT examination is grossly unremarkable. Neck supple. Full range of motion. No adenopathy thyromegaly or neck vein distention. Cardiovascular examination reveals regular rhythm rate. S1-S2 normal. No S3 or S4. No discernible murmur noted. Heart rate 74 bpm. Lungs reveal scattered bilateral rhonchi. Bibasilar crackles noted. No wheezes. Saturations are 93% on 15 L high flow oxygen. Breath sounds are equal bilaterally. Abdomen soft bowel sounds are heard. No masses or tenderness. Extremities are intact. No cyanosis clubbing or edema. Skin is without rash or lesion. Neurologic examination is brief but nonfocal. - Labs CBC & Chem 7: 08/19/22 07:34 08/19/22 07:34 Labs: Abnormal Lab Results - Last 24 Hours (Table) 08/19/22 08/19/22 08/20/22 Range/Units 16:38 19:09 05:47 POC Glucose (mg/dL) 382 H 268 H 111 H (70-110) mg/dL 08/20/22 Range/Units 11:40 POC Glucose (mg/dL) 173 H (70-110) mg/dL Assessment and Plan Assessment: Acute hypoxic respiratory failure secondary to COVID-19 pneumonia, n onvaccinated. Currently back up to 15 L nasal cannula her chest x-ray remains unchanged. Pseudomonas fluorescence in sputum culture, treated. Type 2 diabetes. Benign essential hypertension. Dyslipidemia. 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 Plan: Plan dated 08/20/2022. The patient actually feels a bit better today. He states he had a pretty good night. His Pseudomonas has been treated. He continues on all appropriate medications. Hopefully, over the next day or 2, we'll be able to titrate down his oxygen requirement. We told him that if he gets down to 5 L, by nasal cannula, or less, he could be discharged home. Labs, x-rays, and medications are reviewed. Chest x-ray is reviewed. Time with Patient: Less than 30
[2022-08-20 16:21] LABS: Glucose,Whole Blood 294 mg/dL (70-110)
[2022-08-20 19:40] LABS: Glucose,Whole Blood 272 mg/dL (70-110)
[2022-08-20] MEDS: INSULIN DETEMIR (LEVEMIR) 100 UNIT/ML SYR SQ SCH (20:48)
[2022-08-21 06:12] LABS: Glucose,Whole Blood 94 mg/dL (70-110)
[2022-08-21] MEDS: INSULIN ASPART (NovoLOG) 100 UNIT/ML VIAL SQ SCH ×4 (06:16→20:28)
[2022-08-21] MEDS: ALBUTEROL HFA INHALER INHALATION SCH ×4 (07:30→20:59)
[2022-08-21] MEDS: hydrALAZINE HCL 50 MG TAB PO SCH ×2 (09:37→20:28)
[2022-08-21] MEDS: amLODIPine 5 MG TAB PO SCH ×2 (09:37→20:28)
[2022-08-21] MEDS: MAGNESIUM OXIDE 400 MG TAB PO SCH (09:37)
[2022-08-21] MEDS: ASCORBIC ACID 500 MG TAB PO SCH ×2 (09:37→20:28)
[2022-08-21] MEDS: LOSARTAN 50 MG TAB PO SCH (09:38)
[2022-08-21] MEDS: METOPROLOL TARTRATE 25 MG TAB PO SCH ×2 (09:38→20:28)
[2022-08-21] MEDS: CHOLECALCIFEROL 125 MCG (5000 IU) TABLET PO SCH (09:38)
[2022-08-21] MEDS: ZINC SULFATE 220 MG CAP PO SCH (09:38)
[2022-08-21] MEDS: predniSONE 10 MG TAB PO SCH (09:38)
[2022-08-21] MEDS: hydroCHLOROthiazide 12.5 MG CAP PO SCH (09:38)
[2022-08-21] MEDS: guaiFENesin 600 MG TABLET.ER PO SCH ×2 (09:38→20:28)
[2022-08-21] MEDS: ENOXAPARIN 40 MG/0.4 ML SYRINGE SQ SCH (09:52)
[2022-08-21 11:27] LABS: Glucose,Whole Blood 173 mg/dL (70-110)
--- NOTE | 2022-08-21 12:51 | P.PN ---
Subjective Progress Note Date: 08/21/22 Principal diagnosis: covid Patient is not having any shortness of breath or any pain. No fevers or chills. He is still requiring high amount of FiO2, currently at 15 L of high flow nasal cannula. Objective - Vital Signs Vital signs: Vital Signs Temp 97.7 F 08/21/22 07:29 Pulse 72 08/21/22 08:00 Resp 20 08/21/22 08:00 BP 144/70 08/21/22 07:29 Pulse Ox 89 L 08/21/22 07:31 FiO2 40 08/13/22 11:05 Intake & Output 08/20/22 08/21/22 08/21/22 18:59 06:59 18:59 Other: Voiding Method Urinal Urinal # Voids 4 5 # Bowel Movements 1 - Exam Constitutional: No acute distress, conversant, pleasant Eyes:Anicteric sclerae, moist conjunctiva, no lid-lag, PERRLA, ENMT: Oropharynx clear, no erythema, exudates Neck: Supple, FROM, no masses, or JVD, No carotid bruits, No thyromegaly Lungs: Clear to auscultation, Clear to percussion, Normal respiratory effort, no accessory muscle use Cardiovascular: Heart regular in rate and rhythm, No murmurs, gallops, or rubs, No peripheral edema Abdominal: Soft, Nontender, no guarding, rebound or rigidity, Normoactive bowel sounds, No hepatomegaly, No splenomegaly, No palpable mass Skin: Normal temperature, tone, texture, turgor, no induration, No subcutaneous nodules, No rash, lesions, No ulcers Extremities: No digital cyanosis, No clubbing, Pedal pulses intact and symmetrical, Radial pulses intact and symmetrical, No calf tenderness Psychiatric: Alert and oriented to person, place and time, appropriate affect, intact judgement Neuro: Muscles Strength 5/5 in all 4 extremities, Sensation to light touch grossly present throughout, Cranial nerves II-XII grossly intact, no focal sensory deficits - Labs CBC & Chem 7: 08/19/22 07:34 08/19/22 07:34 Labs: Abnormal Lab Results - Last 24 Hours (Table) 08/20/22 08/20/22 08/21/22 Range/Units 16:19 19:39 11:26 POC Glucose (mg/dL) 294 H 272 H 173 H (70-110) mg/dL Assessment and Plan Plan: #COVID-19 Pneumonia #Acute Hypoxic respiratory failure #Hx Asbestosis - Prednisone taper, currently at 30 mg daily. - Albuterol PRN - Cefepime completed - Ferritin, CRP, ESR mildly elevated - Pro calcitonin mildly elevated - Follow CXR - Pulmonology on board #Leukocytosis - Steroid induced - Continue to monitor #Lactic acidosis - Resolved - Stop IVF and encourage hydration by mouth #DM 2 with hyperglycemia - Hold metformin - A1C 7.2 - SSI, levemir - Accucheck ACHS with hypoglycemic precautions #Resistant HTN - Catapres patch - Norvasc, Hydralazine, ARB, BB #DVT prophylaxis Medications Lovenox
[2022-08-21] MEDS: methylPREDNISolone SOD SUCCI 125 MG/2 ML VIAL IV SCH ×2 (13:14→17:38)
--- NOTE | 2022-08-21 14:06 | P.PN ---
Subjective Progress Note Date: 08/21/22 This is an 82-year-old white male with history of type 2 diabetes, benign essential hypertension, dyslipidemia, patient is not COVID-19 vaccinated. Patient presented to the ER yesterday with 2-3 weeks history of cough, shortness of breath, and burning sensation in the chest. Apparently upon arrival to the ER, the patient was quite hypoxic, his chest x-ray and CT angiogram of the chest showed bilateral interstitial pneumonia/infiltrates. COVID-19 testing came back positive. Patient required placement on BiPAP initially, and he was later transitioned to airvo at 55% FiO2 and 35 L flow. And he remains on that setting. Patient is feeling a bit better, nonetheless he continues to have intermittent cough and shortness of breath. His pro-calcitonin level was a bit elevated hence I recommended starting the patient empirically on cefepime. Although the presentation is clinically a presentation of COVID-19 pneumonia based on his symptoms and based on his chest x-ray and CT of the chest findings. Patient is already on the COVID-19 cocktail, patient and family declined the Remdesivir and requested ivermectin. CBC showed no evidence of leukocytosis. His d-dimer is 1.[address] angiogram of the chest. C-reactive protein is 8.5, LDH is 591. Reevaluated today 08/11/22, remains in the ICU, patient is still requiring high FiO2 45%, 35 L flow via airvo. Patient clinically seems better than expected considering his chest x-ray findings and considering his FiO2 requirement. He seems to be comfortable, not in distress, his pro-calcitonin level was slightly elevated and he was given antibiotics empirically remains on the COVID-19 cocktail. Patient is out of the therapeutic window for Remdesivir. Patient had remote smoking history and he had history of asbestos associated lung disease supposedly. WBC count is 13.9 hemoglobin 13.1. Normal renal profile is normal. Reevaluated today on 08/12/22, patient remains in the ICU as an overflow. Remains on FiO2 45%, and 55 L flow, he is on airvo. Not much of a change in the last 24 hours, patient is feeling better, he is on the COVID-19 cocktail, is also empirically on antibiotics for his slightly elevated pro calcitonin level. Patient responded well to diuretics yesterday, and chest x-ray is pending, plan to repeat his chest x-ray tomorrow. Reevaluated today on 08/13/22, patient remains in the ICU as an overflow. David parekh is on 40% FiO2 and 35 L flow, today I am recommending that we try the patient on high flow nasal cannula at 15 L, and hopefully gradually titrated down. Chest x-ray is showing improvement in his interstitial infiltrates. Clinically the patient is feeling better, and I'm hoping we could get him transferred to the regular medical floor today if possible. Labs today are relatively unremarkable including CBC, basic metabolic profile, renal profile. Reevaluated today on 08/14/22, patient is doing well, he is now on 8 L high flow nasal cannula, O2 saturation is in the low 90s. Hardly any pulmonary symptoms, patient is doing well overall, and I have a feeling that once the patient is down to 5 L nasal cannula he could be considered for discharge home on home oxygen. In the meantime the patient remains on COVID-19 cocktail mostly. WBC count is 13.3 hemoglobin is 13.0 a left lites are normal renal profile is normal, remains on cefepime empirically. Chest x-ray from yesterday showed mostly chronic changes and bilateral peripheral opacities consistent with COVID- 19 infection The patient is seen today 08/15/2022 in follow-up on the regular medical floor. He sitting up in a chair at the bedside. Awake and alert in no acute distress. Still with some cough and congestion. Still requiring 8 L high flow nasal cannula. skin culture was positive for Laura and Pseudomonas fluor escence/putida. He is continued on cefepime along with bronchodilators. Remains on vitamin supplements. Lovenox for DVT prophylaxis. Prednisone taper. The patient is seen today 08/17/2022 in follow-up on the regular medical floor. He is sitting up in bed. Awake and alert in no acute distress. Maintaining O2 saturations in the 90s on 6 L/m per nasal cannula. Dyspneic with exertion. He is afebrile. Hemodynamically stable. Urine culture was positive for Laura and Pseudomonas fluorescence. Blood glucose 167. He's completed his course of cefepime. He remains on Lovenox for DVT prophylaxis. Prednisone taper. Vitamin supplements. The patient is seen today 08/18/2022 in follow-up on the regular medical floor. He is resting comfortably in bed. Awake and alert in no acute distress. He is down to oxygen at 5 L/m per nasal cannula. No IV fluids. He's been afebrile. Hemodynamically stable. Sputum culture was positive for Pseudomonas and Laura. Blood glucose 184. He's completed his course of cefepime. He remains on Lovenox for DVT prophylaxis. Prednisone taper. Vitamin supplements. The patient is seen today 08/19/2022 in follow-up on the regular medical floor. He is currently sitting up in bed. Awake and alert in no acute distress. He did have some dyspnea on exertion and desaturations. He is back up to 15 L high flow nasal cannula. Chest x-ray continues to show increased densities the lungs with multifocal airspace opacities and superimposed chronic changes. No significant change from previous. Sputum was positive for Pseudomonas and Laura. Completed cefepime. White count 14.1. He will and 13.4. D-dimer 0.88. Sodium 134. Potassium 3.8. BUN 23. Creatinine 0.89. LDH 1071. He remains on Lovenox for DVT prophylaxis. Prednisone taper. Vitamin supplements. The patient is seen today 08/21/2022 in follow-up on the regular medical floor. He is currently resting comfortably in bed. Awake and alert in no acute distress. He is still requiring 15 L high flow nasal cannula to maintain O2 saturations in the 90s. He still gets quite dyspneic with minimal exertion. Desaturations with minimal exertion. He is afebrile. Hemodynamically stable. Sputum was positive for Pseudomonas and Laura. Blood sugar 173. he is continued on prednisone, bronchodilators, vitamin supplements. Lovenox for DVT prophylaxis. Objective - Vital Signs Vital signs: Vital Signs Temp 97.6 F 08/21/22 13:39 Pulse 77 08/21/22 13:39 Resp 19 08/21/22 13:39 BP 105/66 08/21/22 13:39 Pulse Ox 95 08/21/22 13:39 FiO2 40 08/13/22 11:05 Intake & Output 08/20/22 08/21/22 08/21/22 18:59 06:59 18:59 Other: Voiding Method Urinal Urinal # Voids 4 5 # Bowel Movements 1 - Exam GENERAL EXAM: Alert, 82-year-old male, currently on 15 L high flow nasal cannula, fairly comfortable in no apparent distress. HEAD: Normocephalic. EYES: Normal reaction of pupils, equal size. NOSE: Clear with pink turbinates. THROAT: No erythema or exudates. NECK: No masses, no JVD. CHEST: No chest wall deformity. LUNGS: Equal air entry with crackles in the bilateral bases. CVS: S1 and S2 normal with no audible murmur, regular rhythm. ABDOMEN: No hepatosplenomegaly, normal bowel sounds, no guarding or rigidity. SPINE: No scoliosis or deformity SKIN: No rashes CENTRAL NERVOUS SYSTEM: No focal deficits, tone is normal in all 4 extremities. EXTREMITIES: There is no peripheral edema. No clubbing, no cyanosis. Peripheral pulses are intact. - Labs CBC & Chem 7: 08/19/22 07:34 08/19/22 07:34 Labs: Abnormal Lab Results - Last 24 Hours (Table) 08/20/22 08/20/22 08/21/22 Range/Units 16:19 19:39 11:26 POC Glucose (mg/dL) 294 H 272 H 173 H (70-110) mg/dL Assessment and Plan Assessment: Acute hypoxic respiratory failure secondary to COVID-19 pneumonia, nonvaccinated. Currently back up to 15 L nasal cannula his chest x-ray remains unchanged Pseudomonas fluorescence in sputum culture, currently on cefepime Type 2 diabetes. Benign essential hypertension. Dyslipidemia. 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 Plan: The patient was seen and evaluated Medications reviewed Continue to titrate down the FiO2 as tolerated Will require home oxygen Change prednisone back to IV Solu-Medrol 60 mg every 6 hours Follow-up chest x-ray in a.m. We will continue to follow I have personally seen and examined the patient, performed the documentation and the assessment and plan as written. Number of minutes spent on the visit: 10.
[2022-08-21 16:45] LABS: Glucose,Whole Blood 235 mg/dL (70-110)
[2022-08-21 20:14] LABS: Glucose,Whole Blood 302 mg/dL (70-110)
[2022-08-21] MEDS: INSULIN DETEMIR (LEVEMIR) 100 UNIT/ML SYR SQ SCH (20:28)
[2022-08-22] MEDS: SODIUM CHLORIDE 0.9% 1,000 ML IV SCH ×2 (03:39→19:38)
[2022-08-22 06:06] LABS: Glucose,Whole Blood 208 mg/dL (70-110)
[2022-08-22] MEDS: INSULIN ASPART (NovoLOG) 100 UNIT/ML VIAL SQ SCH ×4 (06:17→21:22)
[2022-08-22] MEDS: methylPREDNISolone SOD SUCCI 125 MG/2 ML VIAL IV SCH ×4 (06:17→19:00)
--- NOTE | 2022-08-22 07:03 | XR ---
EXAMINATION TYPE: XR chest 1V portable DATE OF EXAM: 08/22/2022 HISTORY: Shortness of breath. COMPARISON: 08/19/2022 TECHNIQUE: Single view of the chest is submitted. FINDINGS: Demonstrated are scattered senescent parenchymal change. Persistent infiltrates seen bilaterally left greater than right with slight interval progression sugg ested. The heart is stable. Hilar and mediastinal structures are within normal limits. Degenerative changes are seen of the dorsal spine. IMPRESSION: 1. Persistent infiltrates seen bilaterally left greater than right with slight interval progression suggested.
[2022-08-22] MEDS: ENOXAPARIN 40 MG/0.4 ML SYRINGE SQ SCH (07:47)
[2022-08-22] MEDS: CHOLECALCIFEROL 125 MCG (5000 IU) TABLET PO SCH (07:48)
[2022-08-22] MEDS: amLODIPine 5 MG TAB PO SCH ×2 (07:48→19:57)
[2022-08-22] MEDS: ZINC SULFATE 220 MG CAP PO SCH (07:48)
[2022-08-22] MEDS: hydrALAZINE HCL 50 MG TAB PO SCH ×2 (07:48→19:57)
[2022-08-22] MEDS: MAGNESIUM OXIDE 400 MG TAB PO SCH (07:48)
[2022-08-22] MEDS: guaiFENesin 600 MG TABLET.ER PO SCH ×2 (07:48→19:57)
[2022-08-22] MEDS: ASCORBIC ACID 500 MG TAB PO SCH ×2 (07:48→19:57)
[2022-08-22] MEDS: LOSARTAN 50 MG TAB PO SCH (07:48)
[2022-08-22] MEDS: METOPROLOL TARTRATE 25 MG TAB PO SCH ×2 (07:48→19:57)
[2022-08-22] MEDS: hydroCHLOROthiazide 12.5 MG CAP PO SCH (07:48)
[2022-08-22] MEDS: ALBUTEROL HFA INHALER INHALATION SCH ×4 (09:11→20:32)
[2022-08-22 09:23] LABS: Basophils # (A) 0.02 X 10*3/uL (0.00-0.10); Basophils % (A) 0.1 %; Eosinophils # (A) 0 X 10*3/uL (0.04-0.35); Eosinophils % (A) 0 %; HCT 41.5 % (39.6-50.0); HGB 13.5 g/dL (13.0-17.0); Immature Grans, Automated 0.6 %; Lymphocytes # (A) 0.91 X 10*3/uL (0.90-5.00); Lymphocytes % (A) 5.3 %; MCH 29.2 pg (27.0-32.0); MCHC 32.5 g/dL (32.0-37.0); MCV 89.6 fL (80.0-97.0); Mean Platelet Volume 10.5 fL (9.5-12.2); Monocytes # (A) 0.45 X 10*3/uL (0.20-1.00); Monocytes % (A) 2.6 %; NRBC Per 100 WBC 0 /100 WBCS (0.0-0.0); Neutrophils # (A) 15.68 X 10*3/uL (1.80-7.70); Neutrophils % (A) 91.4 %; Platelet Count 347 X 10*3/uL (140-440); RBC 4.63 X 10*6/uL (4.40-5.60); WBC 17.17 X 10*3/uL (4.50-10.00)
[2022-08-22 09:28] LABS: African American GFR (CKD) 93.9 (60.0-200.0); Albumin 3.3 g/dL (3.8-4.9); Albumin/Globulin Ratio 1.31 (1.60-3.17); Anion Gap 12.4 mmol/L (10.00-18.00); BUN/Creat Ratio 24.38 Ratio (12.00-20.00); Blood Urea Nitrogen 21.5 mg/dL (9.0-27.0); Calcium 8.9 mg/dL (8.7-10.3); Carbon Dioxide 25.2 mmol/L (20.0-27.5); Globulin 2.6 g/dL (1.6-3.3); Non-African American GFR(CKD) 81.1 (60.0-200.0); Potassium 4.4 mmol/L (3.5-5.5); Total Bilirubin 0.6 mg/dL (0.30-1.20); Total Protein 5.9 g/dL (6.2-8.2)
[2022-08-22 11:31] LABS: Glucose,Whole Blood 181 mg/dL (70-110)
[2022-08-22] MEDS ORDERED: VANCOMYCIN IV PER PHARMACY 1 EACH MISC MISCELLANE PRN (13:00)
--- NOTE | 2022-08-22 13:06 | P.PN ---
Subjective Progress Note Date: 08/22/22 Principal diagnosis: covid Patient is currently worse, he is still having sob and requiring O2, sats still low on high flow NC at 15L. No pain. No fevers. CXR today showing worsening infiltrates. Objective - Vital Signs Vital signs: Vital Signs Temp 97.8 F 08/22/22 08:00 Pulse 86 08/22/22 08:00 Resp 17 08/22/22 08:00 BP 156/78 08/22/22 08:00 Pulse Ox 93 L 08/22/22 08:00 FiO2 40 08/13/22 11:05 Intake & Output 08/21/22 08/22/22 08/22/22 18:59 06:59 18:59 Intake Total 450 Output Total 350 Balance 450 -350 Intake: Oral 450 Output: Urine 350 Other: Voiding Method Urinal Urinal # Voids 2 5 - Exam Constitutional: No acute distress, conversant, pleasant Eyes:Anicteric sclerae, moist conjunctiva, no lid-lag, PERRLA, ENMT: Oropharynx clear, no erythema, exudates Neck: Supple, FROM, no masses, or JVD, No carotid bruits, No thyromegaly Lungs: Clear to auscultation, Clear to percussion, Normal respiratory effort, no accessory muscle use Cardiovascular: Heart regular in rate and rhythm, No murmurs, gallops, or rubs, No peripheral edema Abdominal: Soft, Nontender, no guarding, rebound or rigidity, Normoactive bowel sounds, No hepatomegaly, No splenomegaly, No palpable mass Skin: Normal temperature, tone, texture, turgor, no induration, No subcutaneous nodules, No rash, lesions, No ulcers Extremities: No digital cyanosis, No clubbing, Pedal pulses intact and symmetrical, Radial pulses intact and symmetrical, No calf tenderness Psychiatric: Alert and oriented to person, place and time, appropriate affect, intact judgement Neuro: Muscles Strength 5/5 in all 4 extremities, Sensation to light touch grossly present throughout, Cranial nerves II-XII grossly intact, no focal senso ry deficits - Labs CBC & Chem 7: 08/22/22 06:19 08/22/22 06:19 Labs: Abnormal Lab Results - Last 24 Hours (Table) 08/21/22 08/21/22 08/22/22 Range/Units 16:44 20:12 06:05 WBC (4.50-10.00) X 10*3/uL Immature Gran # (0.00-0.04) X 10*3/uL Neutrophils # (1.80-7.70) X 10*3/uL Eosinophils # (0.04-0.35) X 10*3/uL Sodium (135-145) mmol/L BUN/Creatinine Ratio (12.00-20.00) Ratio Glucose (70-110) mg/dL POC Glucose (mg/dL) 235 H 302 H 208 H (70-110) mg/dL Total Protein (6.2-8.2) g/dL Albumin (3.8-4.9) g/dL Albumin/Globulin Ratio (1.60-3.17) g/dL 08/22/22 08/22/22 08/22/22 Range/Units 06:19 06:19 11:30 WBC 17.17 H (4.50-10.00) X 10*3/uL Immature Gran # 0.11 H (0.00-0.04) X 10*3/uL Neutrophils # 15.68 H (1.80-7.70) X 10*3/uL Eosinophils # 0 L (0.04-0.35) X 10*3/uL Sodium 134 L (135-145) mmol/L BUN/Creatinine Ratio 24.38 H (12.00-20.00) Ratio Glucose 205 H (70-110) mg/dL POC Glucose (mg/dL) 181 H (70-110) mg/dL Total Protein 5.9 L (6.2-8.2) g/dL Albumin 3.3 L (3.8-4.9) g/dL Albumin/Globulin Ratio 1.31 L (1.60-3.17) g/dL Assessment and Plan Plan: #COVID-19 Pneumonia #Bacterial pseudomonas pneumonia #Acute Hypoxic respiratory failure #Hx of asbestosis - Still requiring 15L of HFNC. - Steroids switched again to IV sec to clinical worsening. - Albuterol PRN - Cefepime completed on 08/17. D/w ID, will reinitiate abx cefepime and vancomycin. Will reculture sputum and blood. Check nasal MRSA. - Follow CXR - Pulmonology on board #Leukocytosis - Steroid induced vs. pneumonia - Continue to monitor #Lactic acidosis - Resolved #DM 2 with hyperglycemia - Hold metformin - A1C 7.2 - SSI, - Blood sugars still high, will increase levemir to 18 units daily, was on 15. - Accucheck ACHS with hypoglycemic precautions #Resistant HTN - Catapres patch - Norvasc, Hydralazine, ARB, BB #DVT prophylaxis Lovenox
--- NOTE | 2022-08-22 13:47 | P.PN ---
Subjective Progress Note Date: 08/22/22 This is an 82-year-old white male with history of type 2 diabetes, benign essential hypertension, dyslipidemia, patient is not COVID-19 vaccinated. Patient presented to the ER yesterday with 2-3 weeks history of cough, shortness of breath, and burning sensation in the chest. Apparently upon arrival to the ER, the patient was quite hypoxic, his chest x-ray and CT angiogram of the chest showed bilateral interstitial pneumonia/infiltrates. COVID-19 testing came back positive. Patient required placement on BiPAP initially, and he was later transitioned to airvo at 55% FiO2 and 35 L flow. And he remains on that setting. Patient is feeling a bit better, nonetheless he continues to have intermittent cough and shortness of breath. His pro-calcitonin level was a bit elevated hence I recommended starting the patient empirically on cefepime. Although the presentation is clinically a presentation of COVID-19 pneumonia based on his symptoms and based on his chest x-ray and CT of the chest findings. Patient is already on the COVID-19 cocktail, patient and family declined the Remdesivir and requested ivermectin. CBC showed no evidence of leukocytosis. His d-dimer is 1.[address] angiogram of the chest. C-reactive protein is 8.5, LDH is 591. Reevaluated today 08/11/22, remains in the ICU, patient is still requiring high FiO2 45%, 35 L flow via airvo. Patient clinically seems better than expected considering his chest x-ray findings and considering his FiO2 requirement. He seems to be comfortable, not in distress, his pro-calcitonin level was slightly elevated and he was given antibiotics empirically remains on the COVID-19 cocktail. Patient is out of the therapeutic window for Remdesivir. Patient had remote smoking history and he had history of asbestos associated lung disease supposedly. WBC count is 13.9 hemoglobin 13.1. Normal renal profile is normal. Reevaluated today on 08/12/22, patient remains in the ICU as an overflow. Remains on FiO2 45%, and 55 L flow, he is on airvo. Not much of a change in the last 24 hours, patient is feeling better, he is on the COVID-19 cocktail, is also empirically on antibiotics for his slightly elevated pro calcitonin level. Patient responded well to diuretics yesterday, and chest x-ray is pending, plan to repeat his chest x-ray tomorrow. Reevaluated today on 08/13/22, patient remains in the ICU as an overflow. David parekh is on 40% FiO2 and 35 L flow, today I am recommending that we try the patient on high flow nasal cannula at 15 L, and hopefully gradually titrated down. Chest x-ray is showing improvement in his interstitial infiltrates. Clinically the patient is feeling better, and I'm hoping we could get him transferred to the regular medical floor today if possible. Labs today are relatively unremarkable including CBC, basic metabolic profile, renal profile. Reevaluated today on 08/14/22, patient is doing well, he is now on 8 L high flow nasal cannula, O2 saturation is in the low 90s. Hardly any pulmonary symptoms, patient is doing well overall, and I have a feeling that once the patient is down to 5 L nasal cannula he could be considered for discharge home on home oxygen. In the meantime the patient remains on COVID-19 cocktail mostly. WBC count is 13.3 hemoglobin is 13.0 a left lites are normal renal profile is normal, remains on cefepime empirically. Chest x-ray from yesterday showed mostly chronic changes and bilateral peripheral opacities consistent with COVID- 19 infection The patient is seen today 08/15/2022 in follow-up on the regular medical floor. He sitting up in a chair at the bedside. Awake and alert in no acute distress. Still with some cough and congestion. Still requiring 8 L high flow nasal cannula. skin culture was positive for Laura and Pseudomonas fluor escence/putida. He is continued on cefepime along with bronchodilators. Remains on vitamin supplements. Lovenox for DVT prophylaxis. Prednisone taper. The patient is seen today 08/17/2022 in follow-up on the regular medical floor. He is sitting up in bed. Awake and alert in no acute distress. Maintaining O2 saturations in the 90s on 6 L/m per nasal cannula. Dyspneic with exertion. He is afebrile. Hemodynamically stable. Urine culture was positive for Laura and Pseudomonas fluorescence. Blood glucose 167. He's completed his course of cefepime. He remains on Lovenox for DVT prophylaxis. Prednisone taper. Vitamin supplements. The patient is seen today 08/18/2022 in follow-up on the regular medical floor. He is resting comfortably in bed. Awake and alert in no acute distress. He is down to oxygen at 5 L/m per nasal cannula. No IV fluids. He's been afebrile. Hemodynamically stable. Sputum culture was positive for Pseudomonas and Laura. Blood glucose 184. He's completed his course of cefepime. He remains on Lovenox for DVT prophylaxis. Prednisone taper. Vitamin supplements. The patient is seen today 08/19/2022 in follow-up on the regular medical floor. He is currently sitting up in bed. Awake and alert in no acute distress. He did have some dyspnea on exertion and desaturations. He is back up to 15 L high flow nasal cannula. Chest x-ray continues to show increased densities the lungs with multifocal airspace opacities and superimposed chronic changes. No significant change from previous. Sputum was positive for Pseudomonas and Laura. Completed cefepime. White count 14.1. He will and 13.4. D-dimer 0.88. Sodium 134. Potassium 3.8. BUN 23. Creatinine 0.89. LDH 1071. He remains on Lovenox for DVT prophylaxis. Prednisone taper. Vitamin supplements. The patient is seen today 08/21/2022 in follow-up on the regular medical floor. He is currently resting comfortably in bed. Awake and alert in no acute distress. He is still requiring 15 L high flow nasal cannula to maintain O2 saturations in the 90s. He still gets quite dyspneic with minimal exertion. Desaturations with minimal exertion. He is afebrile. Hemodynamically stable. Sputum was positive for Pseudomonas and Laura. Blood sugar 173. he is continued on prednisone, bronchodilators, vitamin supplements. Lovenox for DVT prophylaxis. The patient is seen today 08/22/2022 in follow-up on the regular medical floor. Sitting up at the bedside. Awake and alert in no acute distress. He is still dyspneic with conversation. Dyspneic with minimal exertion. Still requiring 15 L high flow nasal cannula. Chest x-ray reveals persistent infiltrates bilateral ly left greater than right with slight interval progression suggested. He is back on Solu-Medrol 60 mg IV every 6 hours, continued on bronchodilators. Antibiotics in the form of vancomycin and cefepime. His sputum was positive for Pseudomonas and Laura. Lovenox for DVT prophylaxis. Continued on vitamin supplements. White count 17.1. Hemoglobin 13.5. Revisit 0.9. Sodium 134. Potassium 4.4. BUN 21. Creatinine 0.9. Glucose 205. Objective - Vital Signs Vital signs: Vital Signs Temp 97.3 F L 08/22/22 13:41 Pulse 80 08/22/22 13:41 Resp 20 08/22/22 13:41 BP 135/64 08/22/22 13:41 Pulse Ox 86 L 08/22/22 13:41 FiO2 40 08/13/22 11:05 Intake & Output 08/21/22 08/22/22 08/22/22 18:59 06:59 18:59 Intake Total 450 Output Total 350 Balance 450 -350 Intake: Oral 450 Output: Urine 350 Other: Voiding Method Urinal Urinal # Voids 2 5 - Exam GENERAL EXAM: Alert, 82-year-old male, on 15 L high flow nasal cannula, fairly comfortable in no apparent distress. HEAD: Normocephalic. EYES: Normal reaction of pupils, equal size. NOSE: Clear with pink turbinates. THROAT: No erythema or exudates. NECK: No masses, no JVD. CHEST: No chest wall deformity. LUNGS: Equal air entry with crackles in the bilateral bases. CVS: S1 and S2 normal with no audible murmur, regular rhythm. ABDOMEN: No hepatosplenomegaly, normal bowel sounds, no guarding or rigidity. SPINE: No scoliosis or deformity SKIN: No rashes CENTRAL NERVOUS SYSTEM: No focal deficits, tone is normal in all 4 extremities. EXTREMITIES: There is no peripheral edema. No clubbing, no cyanosis. Peripheral pulses are intact. - Labs CBC & Chem 7: 08/22/22 06:19 08/22/22 06:19 Labs: Abnormal Lab Results - Last 24 Hours (Table) 08/21/22 08/21/22 08/22/22 Range/Units 16:44 20:12 06:05 WBC (4.50-10.00) X 10*3/uL Immature Gran # (0.00-0.04) X 10*3/uL Neutrophils # (1.80-7.70) X 10*3/uL Eosinophils # (0.04-0.35) X 10*3/uL Sodium (135-145) mmol/L BUN/Creatinine Ratio (12.00-20.00) Ratio Glucose (70-110) mg/dL POC Glucose (mg/dL) 235 H 302 H 208 H (70-110) mg/dL Total Protein (6.2-8.2) g/dL Albumin (3.8-4.9) g/dL Albumin/Globulin Ratio (1.60-3.17) g/dL 08/22/22 08/22/22 08/22/22 Range/Units 06:19 06:19 11:30 WBC 17.17 H (4.50-10.00) X 10*3/uL Immature Gran # 0.11 H (0.00-0.04) X 10*3/uL Neutrophils # 15.68 H (1.80-7.70) X 10*3/uL Eosinophils # 0 L (0.04-0.35) X 10*3/uL Sodium 134 L (135-145) mmol/L BUN/Creatinine Ratio 24.38 H (12.00-20.00) Ratio Glucose 205 H (70-110) mg/dL POC Glucose (mg/dL) 181 H (70-110) mg/dL Total Protein 5.9 L (6.2-8.2) g/dL Albumin 3.3 L (3.8-4.9) g/dL Albumin/Globulin Ratio 1.31 L (1.60-3.17) g/dL Assessment and Plan Assessment: Acute hypoxic respiratory failure secondary to COVID-19 pneumonia, nonvaccinated. Currently back up to 15 L nasal cannula his chest x-ray remains unchanged Pseudomonas fluorescence in sputum culture, currently on cefepime and vancomycin Type 2 diabetes. Benign essential hypertension. Dyslipidemia. 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 Plan: The patient was seen and evaluated Chest x-ray, labs and medications reviewed Continue to titrate down the FiO2 as tolerated Will require home oxygen Continue current treatment plan including IV Solu-Medrol 60 mg every 6 hours We will continue to follow I have personally seen and examined the patient, performed the documentation and the assessment and plan as written. Number of minutes spent on the visit: 10.
[2022-08-22] MEDS: VANCOMYCIN 1,500 MG in SODIUM CHLORIDE 0.9% 500 ML 500 ML IVPB SCH (15:15)
[2022-08-22 16:37] LABS: Glucose,Whole Blood 307 mg/dL (70-110)
[2022-08-22] MEDS: CEFEPIME 2 GM in SODIUM CHLORIDE 0.9% 100 ML IVPB SCH ×2 (18:52→22:49)
[2022-08-22 21:12] LABS: Glucose,Whole Blood 245 mg/dL (70-110)
[2022-08-22] MEDS: INSULIN DETEMIR (LEVEMIR) 100 UNIT/ML SYR SQ SCH (21:22)
[2022-08-22] MEDS: ACETAMINOPHEN TAB 325 MG TAB PO PRN (22:48)
--- NOTE | 2022-08-22 23:45 | P.CONS ---
History of Present Illness - Reason for Consult Consult date: 08/22/22 Pneumonia Requesting physician: Caro Amaro - Chief Complaint Increasing shortness of breath x few days - History of Present Illness Patient is a 82-year male with a past medical history significant for diabetes mellitus hypertension hyperlipidemia presenting to the ER for evaluation of increasing shortness of breath and cough, patient did have a positive COVID test and CT angiogram of the chest did shows diffuse pulmonary infiltrate patient family apparently refused remdesivir as per pulmonary documentation, patient did have a procalcitonin of 0.15 however still the patient was treated with a course of cefepime as the patient sputum did grow Pseudomonas putida and Laura patient did have a normal white count admission however patient white count has been slowly creeping up and is up to 17.7 today the patient also noticed to have worsening of his respiratory status as the patient is complaining of increasing shortness of breath and is getting more hypoxic requiring more supplemental oxygen patient denies having any chest pain he did have a cough with moderate intensity with occasional sputum no hemoptysis denies any nausea no vomiting no choking on the food no abdominal pain or any diarrhea patient has been restarted on cefepime and vancomycin infectious disease was consulted today for further management of antibiotic therapy after t he patient has been in the hospital for almost 2 weeks requiring review of his 2 weeks chart on this Wednesday afternoon Review of Systems Positive point has been mentioned in the HPI rest of the systems are negative Past Medical History Past Medical History: Cancer, Diabetes Mellitus, Hyperlipidemia, Hypertension Additional Past Medical History / Comment(s): BASAL CELL ASBESTOSIS History of Any Multi-Drug Resistant Organisms: None Reported Past Surgical History: Hernia Repair Additional Past Surgical History / Comment(s): RIGHT EAR & RIGHT KNEE BASAL CELL. PILONIDAL CYST. UMB HERNIA Past Anesthesia/Blood Transfusion Reactions: No Reported Reaction Smoking Status: Former smoker - Past Family History family Additional Family Medical History / Comment(s): unable to obtain due to pt on bipap and increased work of breathing Medications and Allergies Home Medications Medication Instructions Recorded Confirmed Type Magnesium 400 mg PO DAILY@0800 08/29/18 08/09/22 History Metoprolol Tartrate 25 mg PO BID@0800,199908/29/18 08/09/22 History Vitamin E (Dl,Tocopheryl Acet) 400 mg PO DAILY@0800 08/29/18 08/09/22 History [Vitamin E] amLODIPine [Norvasc] 5 mg PO BID@799,199908/29/18 08/09/22 History cloNIDine 0.1 MG/24HR PATCH 0.1 mg TOPICAL TAY@199908/29/18 08/09/22 History [Catapres-TTS] clonazePAM [KlonoPIN] 0.5 mg PO HS@1999 PRN 08/29/18 08/09/22 History Alpha Lipoic Acid 200 mg PO DAILY@0808/09/22 08/09/22 History Ascorbic Acid [Vitamin C] 1,500 mg PO DAILY@0808/09/22 08/09/22 History Cholecalciferol [Vitamin D3 (125 125 mcg PO DAILY@79908/09/22 08/09/22 History Mcg = 5000 Iu)] Cyanocobalamin (Vitamin B-12) 3,000 mcg PO DAILY@0808/09/22 08/09/22 History [Vitamin B-12] Fish Oil/Dha/Epa [Fish Oil 1,200 1 cap PO DAILY@0808/09/22 08/09/22 History mg Fish Oil] Garlic 1,000 mg PO DAILY@0808/09/22 08/09/22 History Hydrocortisone Cream 1 applic TOPICAL BID PRN 08/09/22 08/09/22 History [Hydrocortisone 2.5% Cream] Irbesartan 300 mg PO DAILY@0800 08/09/22 08/09/22 History Rosuvastatin [Crestor] 20 mg PO TAY@79908/09/22 08/09/22 History Saw Sully 450mg 450 mg PO DAILY@0808/09/22 08/09/22 History Ubidecarenone [Coenzyme Q10] 200 mg PO DAILY@0800 08/09/22 08/09/22 History hydrALAZINE HCL [Apresoline] 50 mg PO BID@799,199908/09/22 08/09/22 History hydroCHLOROthiazide 12.5 mg PO DAILY@0800 08/09/22 08/09/22 History metFORMIN HCL ER [Glucophage XR] 1,500 mg PO W/SUPPER 08/09/22 08/09/22 History Allergies Allergy/AdvReac Type Severity Reaction Status Date / Time No Known Allergies Allergy Verified 08/09/22 16:46 Physical Exam Vitals: Vital Signs Temp Pulse Resp BP Pulse Ox 08/22/22 13:41 97.3 F L 80 20 135/64 86 L 08/22/22 08:00 97.8 F 86 17 156/78 93 L 08/22/22 07:30 86 17 08/22/22 05:00 89 L 08/22/22 03:29 90 L 08/22/22 02:11 98.2 F 89 17 126/66 88 L 08/21/22 20:59 89 L 08/21/22 20:20 97.9 F 85 16 132/67 92 L Intake and Output 08/21/22 08/22/22 08/22/22 22:59 06:59 14:59 Intake Total 450 Output Total 350 Balance 450 -350 Intake: Oral 450 Output: Urine 350 Other: Voiding Method Urinal # Voids 2 5 GENERAL DESCRIPTION: An elderly male lying in bed, no distress. No tachypnea or accessory muscle of respiration use. HEENT: Shows Pallor , no scleral icterus. Oral mucous membrane is dry. No pharyngeal erythema or thrush NECK: Trachea central, no thyromegaly. LUNGS: Unlabored breathing. Coarse breath sounds bilaterally with occasional wheeze. HEART: S1, S2, regular rate and rhythm. No loud murmur ABDOMEN: Soft, no tenderness , guarding or rigidity, no organomegaly EXTREMITIES: No edema of feet. SKIN: No rash, no masses palpable. NEUROLOGICAL: The patient is awake, alert, oriented x3, mood and affect normal. Results CBC & Chem 7: 08/26/22 08:00 08/26/22 08:00 Labs: Abnormal Lab Results - Last 24 Hours (Table) 08/21/22 08/21/22 08/22/22 Range/Units 16:44 20:12 06:05 WBC (4.50-10.00) X 10*3/uL Immature Gran # (0.00-0.04) X 10*3/uL Neutrophils # (1.80-7.70) X 10*3/uL Eosinophils # (0.04-0.35) X 10*3/uL Sodium (135-145) mmol/L BUN/Creatinine Ratio (12.00-20.00) Ratio Glucose (70-110) mg/dL POC Glucose (mg/dL) 235 H 302 H 208 H (70-110) mg/dL Total Protein (6.2-8.2) g/dL Albumin (3.8-4.9) g/dL Albumin/Globulin Ratio (1.60-3.17) g/dL 08/22/22 08/22/22 08/22/22 Range/Units 06:19 06:19 11:30 WBC 17.17 H (4.50-10.00) X 10*3/uL Immature Gran # 0.11 H (0.00-0.04) X 10*3/uL Neutrophils # 15.68 H (1.80-7.70) X 10*3/uL Eosinophils # 0 L (0.04-0.35) X 10*3/uL Sodium 134 L (135-145) mmol/L BUN/Creatinine Ratio 24.38 H (12.00-20.00) Ratio Glucose 205 H (70-110) mg/dL POC Glucose (mg/dL) 181 H (70-110) mg/dL Total Protein 5.9 L (6.2-8.2) g/dL Albumin 3.3 L (3.8-4.9) g/dL Albumin/Globulin Ratio 1.31 L (1.60-3.17) g/dL Assessment and Plan (1) Pneumonia Status: Acute Code(s): J18.9 - PNEUMONIA, UNSPECIFIED ORGANISM SNOMED Code(s): 368644376 Plan: 1patient with worsening respiratory status and this patient has been to the hospital for almost 2 weeks now with initial diagnosis of COVID-19 for the patient family has refused remdesivir that may have helped him now with worsening respiratory status concerning for possible secondary bacterial pneumonia and will need to cover for the resistant gram-positive as well as gram-negative. 2we will obtain a sputum for gram stain and culture blood culture CRP as well as procalcitonin. 3vancomycin pharmacy to dose target trough of 15 while watching kidney function and vancomycin trough closely along with cefepime. We will follow on clinical condition and cultures to further adjust medication if needed Thank you for this consultation will follow this patient along with you Time with Patient: Greater than 30
[2022-08-23] MEDS: VANCOMYCIN 1,500 MG in SODIUM CHLORIDE 0.9% 500 ML 500 ML IVPB SCH ×2 (00:56→16:59)
[2022-08-23] MEDS: methylPREDNISolone SOD SUCCI 125 MG/2 ML VIAL IV SCH ×4 (00:56→16:59)
[2022-08-23 06:19] LABS: Glucose,Whole Blood 91 mg/dL (70-110)
[2022-08-23] MEDS: INSULIN ASPART (NovoLOG) 100 UNIT/ML VIAL SQ SCH ×4 (06:20→20:59)
[2022-08-23] MEDS: ALBUTEROL HFA INHALER INHALATION SCH ×4 (09:10→20:31)
[2022-08-23] MEDS: CEFEPIME 2 GM in SODIUM CHLORIDE 0.9% 100 ML IVPB SCH ×2 (09:14→17:55)
[2022-08-23] MEDS: hydroCHLOROthiazide 12.5 MG CAP PO SCH (09:14)
[2022-08-23] MEDS: amLODIPine 5 MG TAB PO SCH ×2 (09:14→20:11)
[2022-08-23] MEDS: ENOXAPARIN 40 MG/0.4 ML SYRINGE SQ SCH (09:14)
[2022-08-23] MEDS: ASCORBIC ACID 500 MG TAB PO SCH ×2 (09:15→20:11)
[2022-08-23] MEDS: MAGNESIUM OXIDE 400 MG TAB PO SCH (09:15)
[2022-08-23] MEDS: CHOLECALCIFEROL 125 MCG (5000 IU) TABLET PO SCH (09:15)
[2022-08-23] MEDS: METOPROLOL TARTRATE 25 MG TAB PO SCH ×2 (09:15→20:11)
[2022-08-23] MEDS: guaiFENesin 600 MG TABLET.ER PO SCH ×2 (09:15→20:11)
[2022-08-23] MEDS: LOSARTAN 50 MG TAB PO SCH (09:15)
[2022-08-23] MEDS: ZINC SULFATE 220 MG CAP PO SCH (09:15)
[2022-08-23] MEDS: hydrALAZINE HCL 50 MG TAB PO SCH ×2 (09:15→20:11)
--- NOTE | 2022-08-23 10:14 | XR ---
EXAMINATION TYPE: XR chest 1V portable DATE OF EXAM: 08/23/2022 HISTORY: Shortness of breath. COMPARISON: 08/22/2022 TECHNIQUE: Single view of the chest is submitted. FINDINGS: Demonstrated are scattered senescent parenchymal change. Peripheral infiltrates left greater than right persist compatible with pneumonia. The heart is stable. Hilar and mediastinal structures are within normal limits. Degenerative changes are seen of the dorsal spine. IMPRESSION: 1. Peripheral infiltrates left greater than right persist compatible with pneumonia.
[2022-08-23] MEDS ORDERED: FLUCONAZOLE IN NACL,ISO-OSM 400 MG in SALINE 1 200ML.BAG IVPB SCH (11:00)
[2022-08-23 11:01] LABS: HCT 42.2 % (39.6-50.0); HGB 13.6 g/dL (13.0-17.0); MCH 28.6 pg (27.0-32.0); MCHC 32.2 g/dL (32.0-37.0); MCV 88.7 fL (80.0-97.0); Mean Platelet Volume 10.2 fL (9.5-12.2); NRBC Per 100 WBC 0 /100 WBCS (0.0-0.0); Platelet Count 372 X 10*3/uL (140-440); RBC 4.76 X 10*6/uL (4.40-5.60); RDW 12.9 % (11.5-14.5); WBC 26.44 X 10*3/uL (4.50-10.00)
[2022-08-23 11:07] LABS: African American GFR (CKD) 97.8 (60.0-200.0); Albumin 3.4 g/dL (3.8-4.9); Albumin/Globulin Ratio 1.36 (1.60-3.17); Anion Gap 12.5 mmol/L (10.00-18.00); BUN/Creat Ratio 26.88 Ratio (12.00-20.00); Blood Urea Nitrogen 21.5 mg/dL (9.0-27.0); Calcium 8.8 mg/dL (8.7-10.3); Carbon Dioxide 24.5 mmol/L (20.0-27.5); Globulin 2.5 g/dL (1.6-3.3); Magnesium 2.1 mg/dL (1.5-2.4); Non-African American GFR(CKD) 84.4 (60.0-200.0); Potassium 4.1 mmol/L (3.5-5.5); Total Bilirubin 0.7 mg/dL (0.30-1.20); Total Protein 5.9 g/dL (6.2-8.2)
--- NOTE | 2022-08-23 11:07 | P.PN ---
Subjective Progress Note Date: 08/23/22 Principal diagnosis: covid 08/23 Patient has very bad thrush in his mouth. All of his tongue covered with white spots. Still with shortness of breath, requiring 15 L of Nasal Cannula. No Fevers or Chills. No Overnight Events. Objective - Vital Signs Vital signs: Vital Signs Temp 97.4 F L 08/23/22 08:00 Pulse 82 08/23/22 08:00 Resp 20 08/23/22 08:00 BP 148/72 08/23/22 08:00 Pulse Ox 89 L 08/23/22 08:00 FiO2 40 08/13/22 11:05 Intake & Output 08/22/22 08/23/22 08/23/22 18:59 06:59 18:59 Output Total 350 Balance -350 Output: Urine 350 Other: Voiding Method Urinal Urinal # Voids 4 4 - Exam Constitutional: No acute distress, conversant, pleasant Eyes:Anicteric sclerae, moist conjunctiva, no lid-lag, PERRLA, ENMT: Oropharynx clear, no erythema, exudates Neck: Supple, FROM, no masses, or JVD, No carotid bruits, No thyromegaly Lungs: Clear to auscultation, Clear to percussion, Normal respiratory effort, no accessory muscle use Cardiovascular: Heart regular in rate and rhythm, No murmurs, gallops, or rubs, No peripheral edema Abdominal: Soft, Nontender, no guarding, rebound or rigidity, Normoactive bowel sounds, No hepatomegaly, No splenomegaly, No palpable mass Skin: Normal temperature, tone, texture, turgor, no induration, No subcutaneous nodules, No rash, lesions, No ulcers Extremities: No digital cyanosis, No clubbing, Pedal pulses intact and symmetrical, Radial pulses intact and symmetrical, No calf tenderness Psychiatric: Alert and oriented to person, place and time, appropriate affect, intact judgement Neuro: Muscles Strength 5/5 in all 4 extremities, Sensation to light touch grossly present throughout, Cranial nerves II-XII grossly intact, no focal sensory deficits - Labs CBC & Chem 7: 08/22/22 06:19 08/22/22 06:19 Labs: Abnormal Lab Results - Last 24 Hours (Table) 08/22/22 08/22/22 08/22/22 Range/Units 11:30 16:36 21:11 POC Glucose (mg/dL) 181 H 307 H 245 H (70-110) mg/dL Assessment and Plan Plan: #COVID-19 Pneumonia #Bacterial pseudomonas pneumonia #HCAP #Acute Hypoxic respiratory failure #Hx of asbestosis - Still requiring 15L of HFNC. - Steroids switched again to IV sec to clinical worsening. - Albuterol PRN - Cefepime completed on 08/17. - On 08/22 d/w ID, due to clinical worsening, will reinitiate abx cefepime and vancomycin. - Blood and sputum cultures repeated on 08/22 due to clinical worsening, aslos check MRSA swab. - CXR sowing persistnet infiltrates indicating pneumonia - Pulmonology on board #Oral thrush - Case discussed with infectious disease, will start nystatin swish and swallow in addition to fluconazole 200 mg IV daily. #Leukocytosis - Steroid induced vs. pneumonia - Continue to monitor #Lactic acidosis - Resolved #DM 2 with hyperglycemia - Hold metformin - A1C 7.2 - SSI, - Blood sugars still high, levemir was increased to 18 units daily on 08/22, was on 15 units daily. - Accucheck ACHS with hypoglycemic precautions #Resistant HTN - Catapres patch - Norvasc, Hydralazine, ARB, BB #DVT prophylaxis Lovenox
[2022-08-23 11:27] LABS: Glucose,Whole Blood 202 mg/dL (70-110)
[2022-08-23 11:47] LABS: Basophils # (A) 0.03 X 10*3/uL (0.00-0.10); Basophils % (A) 0.1 %; Eosinophils # (A) 0 X 10*3/uL (0.04-0.35); Eosinophils % (A) 0 %; Immature Grans, Automated 0.7 %; Lymphocytes # (A) 1.12 X 10*3/uL (0.90-5.00); Lymphocytes % (A) 4.2 %; Monocytes # (A) 0.75 X 10*3/uL (0.20-1.00); Monocytes % (A) 2.8 %; Neutrophils # (A) 24.35 X 10*3/uL (1.80-7.70); Neutrophils % (A) 92.2 %
[2022-08-23 11:48] LABS: RBC Morphology NORMAL
[2022-08-23] MEDS: NYSTATIN 100,000 UNIT/ML SUSP 500,000 UNIT/5 ML CUP PO SCH ×3 (12:14→20:59)
[2022-08-23] MEDS: FLUCONAZOLE IN NACL,ISO-OSM 200 MG in SALINE 1 100ML.BAG IVPB SCH (12:14)
--- NOTE | 2022-08-23 12:54 | P.PN ---
Subjective Progress Note Date: 08/23/22 Principal diagnosis: Shortness of breath. The patient is seen today 08/17/2022 in follow-up on the regular medical floor. He is sitting up in bed. Awake and alert in no acute distress. Maintaining O2 saturations in the 90s on 6 L/m per nasal cannula. Dyspneic with exertion. He is afebrile. Hemodynamically stable. Urine culture was positive for Laura and Pseudomonas fluorescence. Blood glucose 167. He's completed his course of cefepime. He remains on Lovenox for DVT prophylaxis. Prednisone taper. Vitamin supplements. The patient is seen today 08/18/2022 in follow-up on the regular medical floor. He is resting comfortably in bed. Awake and alert in no acute distress. He is down to oxygen at 5 L/m per nasal cannula. No IV fluids. He's been afebrile. Hemodynamically stable. Sputum culture was positive for Pseudomonas and Laura. Blood glucose 184. He's completed his course of cefepime. He remains on Lovenox for DVT prophylaxis. Prednisone taper. Vitamin supplements. The patient is seen today 08/19/2022 in follow-up on the regular medical floor. He is currently sitting up in bed. Awake and alert in no acute distress. He did have some dyspnea on exertion and desaturations. He is back up to 15 L high flow nasal cannula. Chest x-ray continues to show increased densities the lungs with multifocal airspace opacities and superimposed chronic changes. No significant change from previous. Sputum was positive for Pseudomonas and Cand mena. Completed cefepime. White count 14.1. He will and 13.4. D-dimer 0.88. Sodium 134. Potassium 3.8. BUN 23. Creatinine 0.89. LDH 1071. He remains on Lovenox for DVT prophylaxis. Prednisone taper. Vitamin supplements. Progress note dated 08/20/2022. The patient is seen today in room 451. The patient remains on 15 L high flow oxygen. No IV fluids. He does feel better today. He feels less short of breath. He states he had a pretty good night last night. No new labs today other than a glucose of 173. Laboratory data from yesterday are reviewed. Progress note dated 08/23/2022. The patient is again seen today in room 451. He's on 15 L oxygen. Is getting saline at 20 mL an hour. The patient's currently on cefepime and vancomycin. Clinically, he is about the same as he was yesterday, but according to the nurse, he had a better night last night. He still very short of breath with any activity. White count 26.4, hemoglobin 13.6, hematocrit 42.2, and platelet count was normal. Sodium, potassium, chloride, CO2, anion gap, BUN, and creatinine were all normal. Sputum from August 11 showed evidence of Pseudomonas. Chest x-ray continues to show diffuse bilateral infiltrates, left greater than right. Objective - Vital Signs Vital signs: Vital Signs Temp 97.4 F L 08/23/22 08:00 Pulse 82 08/23/22 08:00 Resp 20 08/23/22 08:00 BP 148/72 08/23/22 08:00 Pulse Ox 89 L 08/23/22 08:00 FiO2 40 08/13/22 11:05 Intake & Output 08/22/22 08/23/22 08/23/22 18:59 06:59 18:59 Output Total 350 Balance -350 Output: Urine 350 Other: Voiding Method Urinal Urinal # Voids 4 4 - Exam No acute distress, oriented 3. No respiratory distress. Currently on 15 L high flow oxygen. HEENT examination is grossly unremarkable. Neck supple. Full range of motion. No adenopathy thyromegaly or neck vein distention. Cardiovascular examination reveals regular rhythm rate. S1-S2 normal. No S3 or S4. No discernible murmur noted. Heart rate 82 bpm. Lungs reveal scattered bilateral rhonchi. Bibasilar crackles noted. No wheezes. Saturations are 91 % on 15 L high flow oxygen. Breath sounds are equal bilaterally. Abdomen soft bowel sounds are heard. No masses or tenderness. Extremities are intact. No cyanosis clubbing or edema. Skin is without rash or lesion. Neurologic examination is brief but nonfocal. - Labs CBC & Chem 7: 08/23/22 07:31 08/23/22 07:31 Labs: Abnormal Lab Results - Last 24 Hours (Table) 08/22/22 08/22/22 08/23/22 Range/Units 16:36 21:11 07:31 WBC 26.44 H (4.50-10.00) X 10*3/uL Immature Gran # 0.19 H (0.00-0.04) X 10*3/uL Neutrophils # 24.35 H (1.80-7.70) X 10*3/uL Eosinophils # 0 L (0.04-0.35) X 10*3/uL BUN/Creatinine Ratio (12.00-20.00) Ratio Glucose (70-110) mg/dL POC Glucose (mg/dL) 307 H 245 H (70-110) mg/dL Total Protein (6.2-8.2) g/dL Albumin (3.8-4.9) g/dL Albumin/Globulin Ratio (1.60-3.17) g/dL 08/23/22 08/23/22 Range/Units 07:31 11:26 WBC (4.50-10.00) X 10*3/uL Immature Gran # (0.00-0.04) X 10*3/uL Neutrophils # (1.80-7.70) X 10*3/uL Eosinophils # (0.04-0.35) X 10*3/uL BUN/Creatinine Ratio 26.88 H (12.00-20.00) Ratio Glucose 111 H (70-110) mg/dL POC Glucose (mg/dL) 202 H (70-110) mg/dL Total Protein 5.9 L (6.2-8.2) g/dL Albumin 3.4 L (3.8-4.9) g/dL Albumin/Globulin Ratio 1.36 L (1.60-3.17) g/dL Assessment and Plan Assessment: Acute hypoxic respiratory failure secondary to COVID-19 pneumonia, nonvaccinated. Currently back up to 15 L nasal cannula her chest x-ray remains unchanged. Pseudomonas fluorescence in sputum culture, treated. Type 2 diabetes. Benign essential hypertension. Dyslipidemia. 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 Plan: Plan dated 08/20/2022. The patient actually feels a bit better today. He states he had a pretty good night. His Pseudomonas has been treated. He continues on all appropriate medications. Hopefully, over the next day or 2, we'll be able to titrate down his oxygen requirement. We told him that if he gets down to 5 L, by nasal cannula, or less, he could be discharged home. Labs, x-rays, and medications are reviewed. Chest x-ray is reviewed. Plan dated 08/23/2022. The patient continues on appropriate medications. The patient continues on Solu-Medrol, and high flow oxygen therapy. Prognosis is guarded. Labs, x-rays, and medications are reviewed. Prognosis is guarded. The patient apparently had a better night last night. The patient continues on Solu-Medrol 60 mg every 6 hours. Unfortunately, we've not been able to titrate down his oxygen. Time with Patient: Less than 30
--- NOTE | 2022-08-23 16:32 | P.PN ---
Subjective Progress Note Date: 08/23/22 Principal diagnosis: Nosocomial pneumonia and thrush Patient is a 82-year male with a past medical history significant for diabetes mellitus hypertension hyperlipidemia presenting to the ER for evaluation of increasing shortness of breath and cough, patient did have a p ositive COVID test and CT angiogram of the chest did shows diffuse pulmonary infiltrate patient family apparently refused remdesivir , patient subsequently was noticed to have a worsening respiratory distress status and worsening white count concerning for possible nosocomial pneumonia. on today's evaluation that is 08/23/2022, the patient is afebrile mentioned breathing slightly comfortably however still requiring 15 L high flow oxygen to maintain his O2 sats, the patient denies having any chest pain no worsening cough or sputum production however he was able to provide sample for culture, the patient denies having any nausea no vomiting and no diarrhea noticed to have extensive thrush Objective - Vital Signs Vital signs: Vital Signs Temp 97.6 F 08/23/22 13:55 Pulse 81 08/23/22 13:55 Resp 20 08/23/22 13:55 BP 130/68 08/23/22 13:55 Pulse Ox 89 L 08/23/22 13:55 FiO2 40 08/13/22 11:05 Intake & Output 08/22/22 08/23/22 08/23/22 18:59 06:59 18:59 Output Total 350 525 Balance -350 -525 Output: Urine 350 525 Other: Voiding Method Urinal Urinal # Voids 4 4 - Exam GENERAL DESCRIPTION: An elderly male lying in bed in no distress HEENT: Extensor thrush RESPIRATORY SYSTEM: Unlabored breathing , coarse breath sounds bilaterally HEART: S1 S2 regular rate and rhythm , ABDOMEN: Soft , no tenderness EXTREMITIES: No edema feet - Labs CBC & Chem 7: 08/23/22 07:31 08/23/22 07:31 Labs: Abnormal Lab Results - Last 24 Hours (Table) 08/22/22 08/22/22 08/23/22 Range/Units 16:36 21:11 07:31 WBC 26.44 H (4.50-10.00) X 10*3/uL Immature Gran # 0.19 H (0.00-0.04) X 10*3/uL Neutrophils # 24.35 H (1.80-7.70) X 10*3/uL Eosinophils # 0 L (0.04-0.35) X 10*3/uL BUN/Creatinine Ratio (12.00-20.00) Ratio Glucose (70-110) mg/dL POC Glucose (mg/dL) 307 H 245 H (70-110) mg/dL Total Protein (6.2-8.2) g/dL Albumin (3.8-4.9) g/dL Albumin/Globulin Ratio (1.60-3.17) g/dL 08/23/22 08/23/22 Range/Units 07:31 11:26 WBC (4.50-10.00) X 10*3/uL Immature Gran # (0.00-0.04) X 10*3/uL Neutrophils # (1.80-7.70) X 10*3/uL Eosinophils # (0.04-0.35) X 10*3/uL BUN/Creatinine Ratio 26.88 H (12.00-20.00) Ratio Glucose 111 H (70-110) mg/dL POC Glucose (mg/dL) 202 H (70-110) mg/dL Total Protein 5.9 L (6.2-8.2) g/dL Albumin 3.4 L (3.8-4.9) g/dL Albumin/Globulin Ratio 1.36 L (1.60-3.17) g/dL Microbiology - Last 24 Hours (Table) 08/22/22 13:08 Blood Culture - Preliminary Blood No Growth after 24 hours 08/22/22 13:05 Blood Culture - Preliminary Blood No Growth after 24 hours Assessment and Plan (1) Pneumonia Current Visit: Yes Status: Acute Code(s): J18.9 - PNEUMONIA, UNSPECIFIED ORGANISM SNOMED Code(s): 206400933 (2) Thrush Current Visit: Yes Status: Acute Code(s): B37.0 - CANDIDAL STOMATITIS SNOMED Code(s): 65673378 Plan: 1patient with worsening respiratory status and this patient has been to the hospital for almost 2 weeks now with initial diagnosis of COVID-19 for the patient family has refused remdesivir that may have helped him now with worsening respiratory status concerning for possible secondary bacterial pneumonia and will need to cover for the resistant gram-positive as well as gram-negative. 2sputum culture has been obtained and results are currently pending 3patient to continue with the cefepime and vancomycin pharmacy to dose target trough of 15 while watching kidney function closely 4patient with extensive oral thrush to continue with the nystatin swish and swallow and Diflucan Time with Patient: Less than 30
[2022-08-23 16:54] LABS: Glucose,Whole Blood 243 mg/dL (70-110)
[2022-08-23] MEDS: SODIUM CHLORIDE 0.9% 1,000 ML IV SCH (19:34)
[2022-08-23] MEDS ORDERED: diphenhydrAMINE 50 MG/ML 1 ML VIAL IVP STA (20:01)
[2022-08-23] MEDS: cloNIDine 0.1 MG/24HR PATCH TRANSDERM SCH (20:12)
[2022-08-23] MEDS ORDERED: clonazePAM 0.5 MG TAB PO PRN (20:33)
[2022-08-23 20:49] LABS: Glucose,Whole Blood 239 mg/dL (70-110)
[2022-08-23] MEDS: INSULIN DETEMIR (LEVEMIR) 100 UNIT/ML SYR SQ SCH (20:59)
[2022-08-24] MEDS: CEFEPIME 2 GM in SODIUM CHLORIDE 0.9% 100 ML IVPB SCH ×4 (00:07→23:12)
[2022-08-24] MEDS: methylPREDNISolone SOD SUCCI 125 MG/2 ML VIAL IV SCH ×5 (00:07→23:12)
[2022-08-24] MEDS: VANCOMYCIN 1,500 MG in SODIUM CHLORIDE 0.9% 500 ML 500 ML IVPB SCH ×2 (01:55→14:45)
[2022-08-24] MEDS: SODIUM CHLORIDE 0.9% 1,000 ML IV SCH (05:32)
[2022-08-24] MEDS: INSULIN ASPART (NovoLOG) 100 UNIT/ML VIAL SQ SCH ×4 (06:37→20:14)
[2022-08-24 06:39] LABS: Glucose,Whole Blood 85 mg/dL (70-110)
[2022-08-24] MEDS: LOSARTAN 50 MG TAB PO SCH (08:13)
[2022-08-24] MEDS: METOPROLOL TARTRATE 25 MG TAB PO SCH ×2 (08:13→20:27)
[2022-08-24] MEDS: amLODIPine 5 MG TAB PO SCH ×2 (08:13→20:27)
[2022-08-24] MEDS: MAGNESIUM OXIDE 400 MG TAB PO SCH (08:14)
[2022-08-24] MEDS: hydrALAZINE HCL 50 MG TAB PO SCH ×2 (08:14→20:27)
[2022-08-24] MEDS: ALBUTEROL HFA INHALER INHALATION SCH ×4 (09:16→21:02)
[2022-08-24] MEDS: ENOXAPARIN 40 MG/0.4 ML SYRINGE SQ SCH (10:30)
[2022-08-24] MEDS: guaiFENesin 600 MG TABLET.ER PO SCH ×2 (10:30→20:27)
[2022-08-24] MEDS: hydroCHLOROthiazide 12.5 MG CAP PO SCH (10:30)
[2022-08-24] MEDS: CHOLECALCIFEROL 125 MCG (5000 IU) TABLET PO SCH (10:31)
[2022-08-24] MEDS: NYSTATIN 100,000 UNIT/ML SUSP 500,000 UNIT/5 ML CUP PO SCH ×4 (10:31→20:27)
[2022-08-24] MEDS: ASCORBIC ACID 500 MG TAB PO SCH ×2 (10:31→20:27)
[2022-08-24 10:42] LABS: Basophils # (A) 0.03 X 10*3/uL (0.00-0.10); Basophils % (A) 0.1 %; Eosinophils # (A) 0 X 10*3/uL (0.04-0.35); Eosinophils % (A) 0 %; HCT 41.5 % (39.6-50.0); HGB 13.2 g/dL (13.0-17.0); Immature Grans, Automated 0.7 %; Lymphocytes # (A) 1.18 X 10*3/uL (0.90-5.00); Lymphocytes % (A) 5.4 %; MCH 28.2 pg (27.0-32.0); MCHC 31.8 g/dL (32.0-37.0); MCV 88.7 fL (80.0-97.0); Mean Platelet Volume 10.1 fL (9.5-12.2); Monocytes # (A) 0.88 X 10*3/uL (0.20-1.00); NRBC Per 100 WBC 0 /100 WBCS (0.0-0.0); Neutrophils # (A) 19.54 X 10*3/uL (1.80-7.70); Neutrophils % (A) 89.8 %; Platelet Count 318 X 10*3/uL (140-440); RBC 4.68 X 10*6/uL (4.40-5.60); RDW 13.2 % (11.5-14.5); WBC 21.79 X 10*3/uL (4.50-10.00)
[2022-08-24 10:50] LABS: African American GFR (CKD) 97.8 (60.0-200.0); Albumin 3.4 g/dL (3.8-4.9); Albumin/Globulin Ratio 1.42 (1.60-3.17); Anion Gap 12.5 mmol/L (10.00-18.00); BUN/Creat Ratio 27.5 Ratio (12.00-20.00); Calcium 8.5 mg/dL (8.7-10.3); Carbon Dioxide 24.5 mmol/L (20.0-27.5); Globulin 2.4 g/dL (1.6-3.3); Magnesium 2.2 mg/dL (1.5-2.4); Non-African American GFR(CKD) 84.4 (60.0-200.0); Potassium 3.8 mmol/L (3.5-5.5); Total Bilirubin 0.7 mg/dL (0.30-1.20); Total Protein 5.8 g/dL (6.2-8.2)
[2022-08-24] MEDS: ZINC SULFATE 220 MG CAP PO SCH (11:18)
[2022-08-24] MEDS: FLUCONAZOLE IN NACL,ISO-OSM 200 MG in SALINE 1 100ML.BAG IVPB SCH (11:19)
[2022-08-24 11:30] LABS: Glucose,Whole Blood 263 mg/dL (70-110)
--- NOTE | 2022-08-24 12:13 | P.PN ---
Subjective Progress Note Date: 08/24/22 On 08/24/2022, I'm seeing the patient for a follow-up. This is a case of acute hypoxic respiratory failure secondary to Covid 19 related pneumonia. The patient is nonvaccinated. Since admission, the patient was on oxygen and his oxygen requirements have been progressively getting worse. He was on 5 L and gradually was brought up to 15 L an earlier this morning he was placed on high flow oxygen at 60 L with an FiO2 of 90%. His current pulse ox is around 90%.rest of the vitals are all stable. His labs from today show a white cell count 21.7 with a hemoglobin of 15.2 and a platelet count of 318. His white cell count is slightly improved compared to yesterday. Rest of the electrolytes are all within normal limits. Blood sugars are slightly elevated because of the use of systemic steroids. LFTs are essentially within normal limits. In terms of therapy, the patient is covered with IV cefepime as an empiric antibiotic coverage. He is also on Diflucan. He is on IV Solu-Medrol 60 mg every 6 hours and is also on vancomycin. His sputum analysis from 08/11/2022 showed pseudomonas and Laura albicans. Note that his pro calcitonin level has been 0.15 at the time of admission. His LDH level has been up to 1027 from 08/19/2022. His d-dimer is at 0.88 and the patient is on Lovenox 40 mg subcu for DVT prophylaxis. Objective - Vital Signs Vital signs: Vital Signs Temp 96.7 F L 08/24/22 08:11 Pulse 83 08/24/22 08:11 Resp 26 H 08/24/22 08:11 BP 159/77 08/24/22 08:11 Pulse Ox 91 L 08/24/22 09:17 FiO2 90 08/24/22 09:17 Intake & Output 08/23/22 08/24/22 08/24/22 18:59 06:59 18:59 Intake Total 240 Output Total 1025 600 Balance -1025 240 -600 Intake: Oral 240 Output: Urine 1025 600 Other: Voiding Method Urinal - Exam No acute distress, oriented 3. No respiratory distress. Currently on 60 L high flow oxygen. The patient is currently on FiO2 of 90% HEENT examination is grossly unremarkable. Neck supple. Full range of motion. No adenopathy thyromegaly or neck vein distention. Cardiovascular examination reveals regular rhythm rate. S1-S2 normal. No S3 or S4. No discernible murmur noted. Heart rate 82 bpm. Lungs reveal scattered bilateral rhonchi. Bibasilar crackles noted. No wheezes. . Breath sounds are equal bilaterally. Abdomen soft bowel sounds are heard. No masses or tenderness. Extremities are intact. No cyanosis clubbing or edema. Skin is without rash or lesion. Neurologic examination is brief but nonfocal. - Labs CBC & Chem 7: 08/24/22 07:24 08/24/22 07:24 Labs: Abnormal Lab Results - Last 24 Hours (Table) 08/23/22 08/23/22 08/24/22 Range/Units 16:52 20:47 07:24 WBC (4.50-10.00) X 10*3/uL MCHC (32.0-37.0) g/dL Immature Gran # (0.00-0.04) X 10*3/uL Neutrophils # (1.80-7.70) X 10*3/uL Eosinophils # (0.04-0.35) X 10*3/uL BUN/Creatinine Ratio 27.50 H (12.00-20.00) Ratio POC Glucose (mg/dL) 243 H 239 H (70-110) mg/dL Calcium 8.5 L (8.7-10.3) mg/dL Total Protein 5.8 L (6.2-8.2) g/dL Albumin 3.4 L (3.8-4.9) g/dL Albumin/Globulin Ratio 1.42 L (1.60-3.17) g/dL 08/24/22 08/24/22 Range/Units 07:24 11:28 WBC 21.79 H (4.50-10.00) X 10*3/uL MCHC 31.8 L (32.0-37.0) g/dL Immature Gran # 0.16 H (0.00-0.04) X 10*3/uL Neutrophils # 19.54 H (1.80-7.70) X 10*3/uL Eosinophils # 0 L (0.04-0.35) X 10*3/uL BUN/Creatinine Ratio (12.00-20.00) Ratio POC Glucose (mg/dL) 263 H (70-110) mg/dL Calcium (8.7-10.3) mg/dL Total Protein (6.2-8.2) g/dL Albumin (3.8-4.9) g/dL Albumin/Globulin Ratio (1.60-3.17) g/dL Microbiology - Last 24 Hours (Table) 08/23/22 09:09 Gram Stain - Preliminary Sputum Sputum Culture - Preliminary 08/23/22 12:19 Nasal Screen MRSA/MSSA - Preliminary Nasal Swab 08/22/22 13:08 Blood Culture - Preliminary Blood No Growth after 24 hours 08/22/22 13:05 Blood Culture - Preliminary Blood No Growth after 24 hours Assessment and Plan Plan: Acute hypoxic respiratory failure secondary to COVID-19 pneumonia, nonvaccinated. Currently back up to 15 L nasal cannula with progressive interval worsening of the oxygenation and the patient is currently on high flow oxygen at 60 L with an FiO2 of 90%. Reviewed the chest x-ray from 08/23/2022 and there is no major interval change. There is bilateral pulmonary infiltrates, rather diffuse in the right lower lobe, an area of focal consolidation in the History of the left lower lobe. cta of the time of admission on 08/09/2022 showed no evidence of any filling defects or pulmonary embolism. The patient has been treated with Solu-Medrol 60 mg every 6 hours. Inflammatory markers including LDH were on the rise. Pro-calcitonin level was low. D-dimer is mildly elevated. Pseudomonas fluorescence in sputum culture, treated. Type 2 diabetes. Benign essential hypertension. Dyslipidemia. 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 Plan: Obviously, oxygenation is getting worse and the patient is currently on high flow oxygen We'll contact pharmacy and assess the patient's candidacy for Baricitinib. I do not think that the patient is a bacterial infection. Antibiotic coverage was offered to him earlier was essentially empiric. We'll repeat a pro-calcitonin level and will check with pharmacy regarding the possibility of baricitinib Recheck LDH, d-dimer is, CRP and pro-calcitonin Continue same antibiotic coverage Condition obviously is worse and the patient may end up being transferred to the intensive care unit if there is any worsening in oxygenation. I reviewed the CAT scan of the chest that showed diffuse bilateral pulmonary infiltrates from 08/09/2022. There is also evidence of pleural plaquing/asbestosis. Condition is obviously worse and we'll continue to follow.
--- NOTE | 2022-08-24 12:14 | P.PN ---
Subjective Progress Note Date: 08/24/22 Hospital course: Patient is a pleasant 82-year-old male with a past medical history of asbestosis, hypertension, hyperlipidemia, and type II uad-[id number]-[id number] diabetes mellitus. He presented to the hospital on 08/09/22 with a chief complaint of shortness of breath. Upon arrival to our facility patient was found to be in acute hypoxic respiratory failure with SpO2 of 54% on room air requiring placement on continuous BiPAP. Patient was weaned off of BiPAP and placed on AirVo. Chest x-ray revealed moderately severe pulmonary interstitial edema reporting coarse interstitial extensive infiltrates in bilateral lungs. CBC and BMP showing no significant abnormalities. Troponin was negative at less than 0.012. Patient's initial lactic acid was 3.2. Ferritin elevated at 391, CRP initially 6.8, pro-calcitonin 0.15, and d-dimer was 1.11. CTA chest completed revealing extensive pulmonary infiltrates, pulmonary emphysema, and mediastinal and peribronchial adenopathy, however ruled out pulmonary emboli. EKG was sinus mechanism with no significant T-wave or ST abnormalities. Patient tested positive for Covid 19 infection and reported that he had not received any of his COVID-19 vaccinations and per documentation in chart patient and his son were adamant against patient receiving Remdesivir. Patient was admitted to the ICU under our services with consultation to floor inspector. Sputum culture resulting positive for Pseudomonas fluorescence and Laura albicans and infectious disease was consulted. Patient receiving IV antibiotics cefepime, vancomycin and fluconazole. Patient currently remains on AirVO 15 L (60 L/90%). Blood and sputum cultures were repeated on 08/22/22 along with MRSA swab and these cultures showing no growth to date. Repeat x-ray completed 08/22/22 continues to show persistent bilateral infiltrates with left greater than right. Physical exam: Patient seen and fully evaluated at bedside this morning. Patient sitting up in bed on AirVo. Overnight the patient was on 15 high flow nasal cannula but desaturated down to 81% requiring placement on AIRVO and transfer to stepdown unit, Patient reports his breathing is much better now that he is on current oxygen regimen. Patient denies having any other complaints or concerns at this time including headache, lightheadedness, dizziness, chest pain, palpitations, or experiencing any numbness/tingling/weakness/swelling in his extremities. Patient reports he has had a good appetite and only complaint other than the shortness of breath is that he has a difficult time urinating using the urinal, patient was educated that he must call for any assistance and cannot get out of bed without medical staff at bedside due to risk of severe hypoxia and potential for inability to recover if he overexerts himself. Patient verbalized understanding. Morning labs revealing persistent leukocytosis with WBC count of 21.79 Vital signs reviewed and stable. General: Nontoxic, no distress and appears stated age. Derm: Skin warm and dry, normal coloration for ethnicity. Head: Atraumatic, normocephalic and symmetric. Eyes: EOMs intact, no lid lag, and anicteric sclera Mouth: no lip lesions, mucus membranes moist Cardiovascular: regular rate and rhythm with normal S1S2, no murmur, positive posterior tibial pulses bilaterally, and cap refill < 2 seconds. Lungs: Respirations even, regular, and unlabored on AirVo. Lungs diffuse rhonchi with bibasilar crackles. No wheezing noted. Conversational dyspnea was present. Abdominal: soft, nontender to palpation, no guarding, no appreciable organomegaly Ext: ROM intact. No gross muscle atrophy, no edema, no contractures Neuro: Speech clear, face symmetrical and CN II-XII grossly intact with no noted focal neuro deficits Psych: Alert and oriented to person, place, time, and situation. Appropriate and pleasant affect. Assessment and Plan of Care: COVID-19 pneumonia Pseudomonas fluorescence and Laura albicans bacterial pneumonia Acute respiratory failure with hypoxia, multifactorial resulting from Covid 19 i nfection, Pseudomonas fluorescence bacterial pneumonia, and underlying asbestosis. Leukocytosis, multifactorial secondary to above History of asbestosis -Oxygenation to be administered and titrated as needed to maintain SPO2 equal to or greater than 90% -Telemetry monitoring. -Monitor Pulse-oximetry -Ventolin inhaler scheduled for times daily and 4 times daily as needed for SOB and/or wheezing -Incentive Spirometry -Steroids: SoluMedrol 60 mg IVP every 6 hours -Continue with Antibiotics: Cefepime, vancomycin, and fluconazole -Sputum culture positive for Pseudomonas fluorescence and Laura albicans -balance bridge inspector following -Infectious disease following Lactic acidosis, secondary to above. Resolved Oral thrush -Per recommendations of infectious disease patient was started on nystatin swish and swallow addition to fluconazole 200 mg IVPB daily. Diabetes mellitus type II with hyperglycemia -Hemoglobin A1c 7.2%. -Hold oral medications in place patient on glycemic protocol with NovoLog sliding scale throughout hospitalization. -Despite sliding scale patient had continued hyperglycemia, likely secondary to IV steroids and thus was started on long-acting Levemir 18 units nightly in addition to sliding scale. Hypertension, resistant hypertension currently stable on home medication regimen. -Monitor vital signs and continue daily medication regimen with amlodipine, cl onidine patch, hydralazine, hydrochlorothiazide, losartan, and metoprolol. CODE STATUS: Full code with instructions. Patient YES to CPR and other interventions but NO to mechanical ventilation. DVT prophylaxis: Lovenox Discussed with: Patient and RN Anticipated discharge date: Clinical course to determine Anticipated discharge place: Clinical course to determine, prognosis guarded remain unable to wean down oxygen. A total of 37 minutes was spent on the care of this complex patient more than 50% of the time was spent in counseling and care coordination. Objective - Vital Signs Vital signs: Vital Signs Temp 96.7 F L 08/24/22 08:11 Pulse 83 08/24/22 08:11 Resp 26 H 08/24/22 08:11 BP 159/77 08/24/22 08:11 Pulse Ox 90 L 08/24/22 08:11 FiO2 90 08/24/22 04:56 Intake & Output 08/23/22 08/24/22 08/24/22 18:59 06:59 18:59 Intake Total 240 Output Total 1025 Balance -1025 240 Intake: Oral 240 Output: Urine 1025 Other: Voiding Method Urinal - Labs CBC & Chem 7: 08/24/22 07:24 08/24/22 07:24 Labs: Abnormal Lab Results - Last 24 Hours (Table) 08/23/22 08/23/22 08/23/22 Range/Units 07:31 07:31 11:26 WBC 26.44 H (4.50-10.00) X 10*3/uL Immature Gran # 0.19 H (0.00-0.04) X 10*3/uL Neutrophils # 24.35 H (1.80-7.70) X 10*3/uL Eosinophils # 0 L (0.04-0.35) X 10*3/uL BUN/Creatinine Ratio 26.88 H (12.00-20.00) Ratio Glucose 111 H (70-110) mg/dL POC Glucose (mg/dL) 202 H (70-110) mg/dL Total Protein 5.9 L (6.2-8.2) g/dL Albumin 3.4 L (3.8-4.9) g/dL Albumin/Globulin Ratio 1.36 L (1.60-3.17) g/dL 08/23/22 08/23/22 Range/Units 16:52 20:47 WBC (4.50-10.00) X 10*3/uL Immature Gran # (0.00-0.04) X 10*3/uL Neutrophils # (1.80-7.70) X 10*3/uL Eosinophils # (0.04-0.35) X 10*3/uL BUN/Creatinine Ratio (12.00-20.00) Ratio Glucose (70-110) mg/dL POC Glucose (mg/dL) 243 H 239 H (70-110) mg/dL Total Protein (6.2-8.2) g/dL Albumin (3.8-4.9) g/dL Albumin/Globulin Ratio (1.60-3.17) g/dL Microbiology - Last 24 Hours (Table) 08/23/22 12:19 Nasal Screen MRSA/MSSA - Preliminary Nasal Swab 08/23/22 09:09 Sputum Culture - Preliminary Sputum 08/22/22 13:08 Blood Culture - Preliminary Blood No Growth after 24 hours 08/22/22 13:05 Blood Culture - Preliminary Blood No Growth after 24 hours
[2022-08-24] MEDS ORDERED: VANCOMYCIN TROUGH DUE 1 EACH MISC MISCELLANE ONE (13:00)
[2022-08-24 13:26] LABS: C Reactive Protein 2.8 mg/dL (<1.0)
[2022-08-24 16:30] LABS: Glucose,Whole Blood 270 mg/dL (70-110)
[2022-08-24] MEDS ORDERED: clonazePAM 0.5 MG TAB PO PRN (20:00)
[2022-08-24 20:02] LABS: Glucose,Whole Blood 134 mg/dL (70-110)
[2022-08-24] MEDS: INSULIN DETEMIR (LEVEMIR) 100 UNIT/ML SYR SQ SCH (20:26)
[2022-08-25] MEDS: VANCOMYCIN 1,500 MG in SODIUM CHLORIDE 0.9% 500 ML 500 ML IVPB SCH (02:24)
[2022-08-25] MEDS: methylPREDNISolone SOD SUCCI 125 MG/2 ML VIAL IV SCH ×3 (05:44→17:08)
[2022-08-25] MEDS: SODIUM CHLORIDE 0.9% 1,000 ML IV SCH (05:45)
[2022-08-25] MEDS: INSULIN ASPART (NovoLOG) 100 UNIT/ML VIAL SQ SCH ×4 (06:18→21:52)
[2022-08-25 06:19] LABS: Glucose,Whole Blood 113 mg/dL (70-110)
[2022-08-25] MEDS: CHOLECALCIFEROL 125 MCG (5000 IU) TABLET PO SCH (08:45)
[2022-08-25] MEDS: LOSARTAN 50 MG TAB PO SCH (08:45)
[2022-08-25] MEDS: ASCORBIC ACID 500 MG TAB PO SCH ×2 (08:45→21:53)
[2022-08-25] MEDS: ZINC SULFATE 220 MG CAP PO SCH (08:45)
[2022-08-25] MEDS: amLODIPine 5 MG TAB PO SCH ×2 (08:46→21:53)
[2022-08-25] MEDS: MAGNESIUM OXIDE 400 MG TAB PO SCH (08:46)
[2022-08-25] MEDS: hydroCHLOROthiazide 12.5 MG CAP PO SCH (08:46)
[2022-08-25] MEDS: ENOXAPARIN 40 MG/0.4 ML SYRINGE SQ SCH ×2 (08:46→21:52)
[2022-08-25] MEDS: METOPROLOL TARTRATE 25 MG TAB PO SCH ×2 (08:46→21:53)
[2022-08-25] MEDS: guaiFENesin 600 MG TABLET.ER PO SCH ×2 (08:46→21:53)
[2022-08-25] MEDS: hydrALAZINE HCL 50 MG TAB PO SCH ×2 (08:46→21:53)
[2022-08-25] MEDS: FLUCONAZOLE IN NACL,ISO-OSM 200 MG in SALINE 1 100ML.BAG IVPB SCH (08:47)
[2022-08-25] MEDS: NYSTATIN 100,000 UNIT/ML SUSP 500,000 UNIT/5 ML CUP PO SCH ×4 (08:47→21:52)
[2022-08-25] MEDS: ALBUTEROL HFA INHALER INHALATION SCH ×4 (09:18→19:36)
[2022-08-25] MEDS: CEFEPIME 2 GM in SODIUM CHLORIDE 0.9% 100 ML IVPB SCH (10:41)
[2022-08-25 11:36] LABS: Glucose,Whole Blood 124 mg/dL (70-110)
[2022-08-25 12:16] LABS: African American GFR (CKD) >90 (>60 ml/min/1.73 sqM); C Reactive Protein 1.8 mg/dL (<1.0); LDH 1048 U/L (313-618); Non-African American GFR(CKD) 78 (>60 ml/min/1.73 sqM)
--- NOTE | 2022-08-25 12:44 | US ---
EXAMINATION TYPE: US venous doppler duplex LE DATE OF EXAM: 08/25/2022 11:15 AM COMPARISON: NONE CLINICAL HISTORY: CoVID , elevated d-dimer. Covid SIDE PERFORMED: Bilateral TECHNIQUE: The lower extremity deep venous system is examined utilizing real time linear array sonog joie with graded compression, doppler sonography and color-flow sonography. VESSELS IMAGED: Common Femoral Vein Deep Femoral Vein Greater Saphenous Vein * Femoral Vein Popliteal Vein Small Saphenous Vein * Proximal Calf Veins (* superficial vessels) Right Leg: Negative for DVT Left Leg: Negative for DVT Grayscale, color doppler, spectral doppler imaging performed of the deep veins of the lower extremiti es. There is normal flow, compressibility, vascular waveforms. IMPRESSION: No evidence of deep vein thrombosis of either lower extremity.
--- NOTE | 2022-08-25 14:35 | P.PN ---
Subjective Progress Note Date: 08/25/22 On 08/24/2022, I'm seeing the patient for a follow-up. This is a case of acute hypoxic respiratory failure secondary to Covid 19 related pneumonia. The patient is nonvaccinated. Since admission, the patient was on oxygen and his oxygen requirements have been progressively getting worse. He was on 5 L and gradually was brought up to 15 L an earlier this morning he was placed on high flow oxygen at 60 L with an FiO2 of 90%. His current pulse ox is around 90%.rest of the vitals are all stable. His labs from today show a white cell count 21.7 with a hemoglobin of 15.2 and a platelet count of 318. His white cell count is slightly improved compared to yesterday. Rest of the electrolytes are all within normal limits. Blood sugars are slightly elevated because of the use of systemic steroids. LFTs are essentially within normal limits. In terms of therapy, the patient is covered with IV cefepime as an empiric antibiotic coverage. He is also on Diflucan. He is on IV Solu-Medrol 60 mg every 6 hours and is also on vancomycin. His sputum analysis from 08/11/2022 showed pseudomonas and Laura albicans. Note that his pro calcitonin level has been 0.15 at the time of admission. His LDH level has been up to 1027 from 08/19/2022. His d-dimer is at 0.88 and the patient is on Lovenox 40 mg subcu for DVT prophylaxis. On 08/27/2022, the patient is being seen for a follow-up. The patient is essentially the same as yesterday. The patient remains on high flow oxygen at 60 L with an FiO2 of 90%. The current pulse ox is around 86%. Nevertheless, despite his hypoxemic, the patient denies having any worsening shortness of breath. He is able to communicate. I noted that the patient has completed his course of IV cefepime regarding pseudomonal growth in his lungs. The patient's pro-calcitonin level was low and I suggest discontinuing the IV antibiotics with cefepime. In same time, the patient seems to be outside the window for treatment with Barici. The patient remains on IV Solu-Medrol. The patient remains on Lovenox 40 mg subcu portably prophylaxis. LDH level of the d-dimer levels were both on the rise. D-dimer was at 12.4 and the LDH level was up to 1048. Based on that, I ordered a Doppler of the lower extremity and another CT angiogram on this patient. Note that the patient was receiving Lovenox for DVT prophylaxis and low likelihood for pulmonary embolism is less and this is most likely progression of his underlying pulmonary Covid 19 infection/pneumonia. Objective - Vital Signs Vital signs: Vital Signs Temp 97.1 F L 08/24/22 23:07 Pulse 73 08/25/22 12:05 Resp 21 08/25/22 12:05 BP 131/64 08/25/22 12:05 Pulse Ox 88 L 08/25/22 12:05 FiO2 90 08/25/22 12:36 Intake & Output 08/24/22 08/25/22 08/25/22 18:59 06:59 18:59 Output Total 1300 550 Balance -1300 -550 Weight 77.8 kg Output: Urine 1300 550 Other: Voiding Method Urinal Urinal Urinal - Exam No acute distress, oriented 3. No respiratory distress. Currently on 60 L high flow oxygen. The patient is currently on FiO2 of 90% HEENT examination is grossly unremarkable. Neck supple. Full range of motion. No adenopathy thyromegaly or neck vein distention. Cardiovascular examination reveals regular rhythm rate. S1-S2 normal. No S3 or S4. No discernible murmur noted. Heart rate 82 bpm. Lungs reveal scattered bilateral rhonchi. Bibasilar crackles noted. No wheezes. . Breath sounds are equal bilaterally. Abdomen soft bowel sounds are heard. No masses or tenderness. Extremities are intact. No cyanosis clubbing or edema. Skin is without rash or lesion. Neurologic examination is brief but nonfocal. - Labs CBC & Chem 7: 08/24/22 07:24 08/25/22 11:09 Labs: Abnormal Lab Results - Last 24 Hours (Table) 08/24/22 08/24/22 08/25/22 Range/Units 16:29 20:01 06:18 D-Dimer (<0.60) mg/L FEU POC Glucose (mg/dL) 270 H 134 H 113 H (70-110) mg/dL Lactate Dehydrogenase (313-618) U/L C-Reactive Protein (<1.0) mg/dL 08/25/22 08/25/22 08/25/22 Range/Units 11:09 11:09 11:34 D-Dimer 12.48 H (<0.60) mg/L FEU POC Glucose (mg/dL) 124 H (70-110) mg/dL Lactate Dehydrogenase 1048 H (313-618) U/L C-Reactive Protein 1.8 H (<1.0) mg/dL Microbiology - Last 24 Hours (Table) 08/23/22 09:09 Gram Stain - Final Sputum Sputum Culture - Final Laura albicans 08/23/22 12:19 Nasal Screen MRSA/MSSA - Final Nasal Swab 08/22/22 13:08 Blood Culture - Preliminary Blood No Growth after 48 hours 08/22/22 13:05 Blood Culture - Preliminary Blood No Growth after 48 hours Assessment and Plan Plan: Acute hypoxic respiratory failure secondary to COVID-19 pneumonia, nonvaccinated. Currently back up to 15 L nasal cannula with progressive inte rval worsening of the oxygenation and the patient is currently on high flow oxygen at 60 L with an FiO2 of 90%. Reviewed the chest x-ray from 08/23/2022 and there is no major interval change. There is bilateral pulmonary infiltrates, rather diffuse in the right lower lobe, an area of focal consoli dation in the History of the left lower lobe. cta of the time of admission on 08/09/2022 showed no evidence of any filling defects or pulmonary embolism. The patient has been treated with Solu-Medrol 60 mg every 6 hours. Inflammatory markers including LDH were on the rise. Pro-calcitonin level was low. D-dimer is mildly elevated. D-dimer is on the rise and the patient d-dimer is up to 12.4 with an LDH of 1048. Patient completed his antibiotic course with IV cefepime regarding Pseudomonas Pseudomonas fluorescence in sputum culture, treated. The patient completed antibiotic course Type 2 diabetes. Benign essential hypertension. Dyslipidemia. 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 Plan: Oxygenation is unchanged since yesterday and the patient is currently on high flow oxygen Complete the course of IV cefepime and this will be discontinued Medical candidate for Baricitinib. Recheck LDH, d-dimer is, CRP and pro-calcitonin within next 24 hours Obtain Doppler of the lower extremities Obtain CT angiogram of the chest Discussed the findings with the family I reviewed the CAT scan of the chest that showed diffuse bilateral pulmonary infiltrates from 08/09/2022. There is also evidence of pleural plaquing/asbestosis. This CAT scan was on atenolol diagnosis Condition is unchanged compared to yesterday. Overall prognosis for based above-mentioned comorbidities.
[2022-08-25 16:58] LABS: Glucose,Whole Blood 363 mg/dL (70-110)
--- NOTE | 2022-08-25 18:37 | P.PN ---
Subjective Progress Note Date: 08/25/22 Hospital course: Patient is a pleasant 82-year-old male with a past medical history of asbestosis, hypertension, hyperlipidemia, and type II [id number] diabetes mellitus. He presented to the hospital on 08/09/22 with a chief complaint of shortness of breath. Upon arrival to our facility patient was found to be in acute hypoxic respiratory failure with SpO2 of 54% on room air requiring placement on continuous BiPAP. Patient was weaned off of BiPAP and placed on AirVo. Chest x-ray revealed moderately severe pulmonary interstitial edema reporting coarse interstitial extensive infiltrates in bilateral lungs. CBC and BMP showing no significant abnormalities. Troponin was negative at less than 0.012. Patient's initial lactic acid was 3.2. Ferritin elevated at 391, CRP initially 6.8, pro-calcitonin 0.15, and d-dimer was 1.11. CTA chest completed revealing extensive pulmonary infiltrates, pulmonary emphysema, and mediastinal and peribronchial adenopathy, however ruled out pulmonary emboli. EKG was sinus mechanism with no significant T-wave or ST abnormalities. Patient tested positive for Covid 19 infection and reported that he had not received any of his COVID-19 vaccinations and per documentation in chart patient and his son were adamant against patient receiving Remdesivir. Patient was admitted to the ICU under our services with consultation to band director. Sputum culture resulting positive for Pseudomonas fluorescence and Laura albicans and infectious disease was consulted. Patient receiving IV antibiotics cefepime, vancomycin and fluconazole. Patient currently remains on AirVO 15 L (60 L/90%). Blood and sputum cultures were repeated on 08/22/22 along with MRSA swab and these cultures showing no growth to date. Repeat x-ray completed 08/22/22 continues to show persistent bilateral infiltrates with left greater than right. Secondary to increasing d-dimer, discussed with pharmacy and guidelines recommending increasing Lovenox dose to 0.5 mg/kg and orders being placed at this time. Physical exam: Patient seen and fully evaluated at bedside this morning. Patient sitting up in bed and remains on AirVo. Patient has had episodes where he is desaturating down into the mid to high 80s. Patient appears frustrated this morning and states that he just got off of a long phone call with his attorneys. Patient remains on AIRVO 60 L/90% inflammatory markers increasing with d-dimer up to 12.48, bilateral lower extremity Dopplers completed negative for DVTs. CT completed upon admission 08/09/22 was negative for PE. Patient unable to lie flat to undergo CTA at this time due to significant O2 demands. Secondary to increasing d-dimer, discussed with pharmacy and guidelines recommending increasing Lovenox dose to 0.5 mg/kg and orders being placed at this time. Vital signs reviewed and stable. General: Nontoxic, no distress and appears stated age. Derm: Skin warm and dry, normal coloration for ethnicity. Head: Atraumatic, normocephalic and symmetric. Eyes: EOMs intact, no lid lag, and anicteric sclera Mouth: no lip lesions, mucus membranes moist Cardiovascular: regular rate and rhythm with normal S1S2, no murmur, positive posterior tibial pulses bilaterally, and cap refill < 2 seconds. Lungs: Respirations even, regular, and unlabored on AirVo. Lungs diffuse rhonchi with bibasilar crackles. No wheezing noted. Conversational dyspnea was present. Abdominal: soft, nontender to palpation, no guarding, no appreciable organomegaly Ext: ROM intact. No gross muscle atrophy, no edema, no contractures Neuro: Speech clear, face symmetrical and CN II-XII grossly intact with no noted focal neuro deficits Psych: Alert and oriented to person, place, time, and situation. Appropriate and pleasant affect. Assessment and Plan of Care: COVID-19 pneumonia Pseudomonas fluorescence and Laura albicans bacterial pneumonia Acute respiratory failure with hypoxia, multifactorial resulting from Covid 19 infection, Pseudomonas fluorescence bacterial pneumonia, and underlying asbestosis. Leukocytosis, multifactorial secondary to above Elevated d-dimer, likely secondary to worsening Covid infection History of asbestosis -Oxygenation to be administered and titrated as needed to maintain SPO2 equal to or greater than 90% -Telemetry monitoring. -Monitor Pulse-oximetry -Ventolin inhaler scheduled for times daily and 4 times daily as needed for SOB and/or wheezing -Incentive Spirometry -Steroids: SoluMedrol 60 mg IVP every 6 hours -Sputum culture positive for Pseudomonas fluorescence and Laura albicans -Continue with Antibiotics: fluconazole. Cefepime and vancomycin discontinued as repeat pro-calcitonin was negative. -food inspector following -Infectious disease following -Secondary to increasing d-dimer, discussed with pharmacy and guidelines recommending increasing Lovenox dose to 0.5 mg/kg and orders being placed at this time. Lactic acidosis, secondary to above. Resolved Oral thrush -Per recommendations of infectious disease patient was started on nystatin swish and swallow addition to fluconazole 200 mg IVPB daily. Diabetes mellitus type II with hyperglycemia -Hemoglobin A1c 7.2%. -Hold oral medications in place patient on glycemic protocol with NovoLog slidi ng scale throughout hospitalization. -Despite sliding scale patient had continued hyperglycemia, likely secondary to IV steroids and thus was started on long-acting Levemir 18 units nightly in addition to sliding scale. Hypertension, resistant hypertension currently stable on home medication regim en. -Monitor vital signs and continue daily medication regimen with amlodipine, clonidine patch, hydralazine, hydrochlorothiazide, losartan, and metoprolol. CODE STATUS: Full code with instructions. Patient YES to CPR and other interventions but NO to mechanical ventilation. DVT prophylaxis: Lovenox Discussed with: Patient and RN Anticipated discharge date: Clinical course to determine Anticipated discharge place: Clinical course to determine, prognosis guarded remain unable to wean down oxygen. A total of 38 minutes was spent on the care of this complex patient more than 50% of the time was spent in counseling and care coordination. Objective - Vital Signs Vital signs: Vital Signs Temp 97.1 F L 08/24/22 23:07 Pulse 100 08/25/22 08:59 Resp 28 H 08/25/22 08:59 BP 159/80 08/25/22 08:48 Pulse Ox 86 L 08/25/22 09:21 FiO2 90 08/25/22 09:21 Intake & Output 08/24/22 08/25/22 08/25/22 18:59 06:59 18:59 Output Total 1300 550 Balance -1300 -550 Output: Urine 1300 550 Other: Voiding Method Urinal Urinal Urinal - Labs CBC & Chem 7: 08/24/22 07:24 08/25/22 11:09 Labs: Abnormal Lab Results - Last 24 Hours (Table) 08/24/22 08/24/22 08/24/22 Range/Units 07:24 07:24 11:28 WBC 21.79 H (4.50-10.00) X 10*3/uL MCHC 31.8 L (32.0-37.0) g/dL Immature Gran # 0.16 H (0.00-0.04) X 10*3/uL Neutrophils # 19.54 H (1.80-7.70) X 10*3/uL Eosinophils # 0 L (0.04-0.35) X 10*3/uL D-Dimer (<0.60) mg/L FEU BUN/Creatinine Ratio 27.50 H (12.00-20.00) Ratio POC Glucose (mg/dL) 263 H (70-110) mg/dL Calcium 8.5 L (8.7-10.3) mg/dL Lactate Dehydrogenase (313-618) U/L C-Reactive Protein (<1.0) mg/dL Total Protein 5.8 L (6.2-8.2) g/dL Albumin 3.4 L (3.8-4.9) g/dL Albumin/Globulin Ratio 1.42 L (1.60-3.17) g/dL 08/24/22 08/24/22 08/24/22 Range/Units 12:41 12:41 16:29 WBC (4.50-10.00) X 10*3/uL MCHC (32.0-37.0) g/dL Immature Gran # (0.00-0.04) X 10*3/uL Neutrophils # (1.80-7.70) X 10*3/uL Eosinophils # (0.04-0.35) X 10*3/uL D-Dimer 9.30 H (<0.60) mg/L FEU BUN/Creatinine Ratio (12.00-20.00) Ratio POC Glucose (mg/dL) 270 H (70-110) mg/dL Calcium (8.7-10.3) mg/dL Lactate Dehydrogenase 1060 H (313-618) U/L C-Reactive Protein 2.8 H (<1.0) mg/dL Total Protein (6.2-8.2) g/dL Albumin (3.8-4.9) g/dL Albumin/Globulin Ratio (1.60-3.17) g/dL 08/24/22 08/25/22 Range/Units 20:01 06:18 WBC (4.50-10.00) X 10*3/uL MCHC (32.0-37.0) g/dL Immature Gran # (0.00-0.04) X 10*3/uL Neutrophils # (1.80-7.70) X 10*3/uL Eosinophils # (0.04-0.35) X 10*3/uL D-Dimer (<0.60) mg/L FEU BUN/Creatinine Ratio (12.00-20.00) Ratio POC Glucose (mg/dL) 134 H 113 H (70-110) mg/dL Calcium (8.7-10.3) mg/dL Lactate Dehydrogenase (313-618) U/L C-Reactive Protein (<1.0) mg/dL Total Protein (6.2-8.2) g/dL Albumin (3.8-4.9) g/dL Albumin/Globulin Ratio (1.60-3.17) g/dL Microbiology - Last 24 Hours (Table) 08/23/22 12:19 Nasal Screen MRSA/MSSA - Final Nasal Swab 08/22/22 13:08 Blood Culture - Preliminary Blood No Growth after 48 hours 08/22/22 13:05 Blood Culture - Preliminary Blood No Growth after 48 hours 08/23/22 09:09 Gram Stain - Preliminary Sputum Sputum Culture - Preliminary Assessment and Plan Assessment: Attending note Aditya Jordan NP rendered care for this patient independently, reviewed the findings and plan as documented in the note above. I did not physically speak with our examined the patient on this date.
[2022-08-25 20:22] LABS: Glucose,Whole Blood 209 mg/dL (70-110)
[2022-08-25] MEDS: INSULIN DETEMIR (LEVEMIR) 100 UNIT/ML SYR SQ SCH (21:52)
--- NOTE | 2022-08-25 22:24 | P.PN ---
Subjective Progress Note Date: 08/24/22 Principal diagnosis: Nosocomial pneumonia and thrush Patient is a 82-year male with a past medical history significant for diabetes mellitus hypertension hyperlipidemia presenting to the ER for evaluation of increasing shortness of breath and cough, patient did have a p ositive COVID test and CT angiogram of the chest did shows diffuse pulmonary infiltrate patient family apparently refused remdesivir , patient subsequently was noticed to have a worsening respiratory distress status and worsening white count concerning for possible nosocomial pneumonia. on today's evaluation that is 08/24/2022, the patient remains to be afebrile patient did have worsening of his respiratory status and the patient be transferred down to the cardiac unit patient denies having any chest pain the patient denies any worsening cough or sputum production no nausea no vomiting no abdominal pain or diarrhea Objective - Vital Signs Vital signs: Vital Signs Temp 96.7 F L 08/24/22 08:11 Pulse 83 08/24/22 08:11 Resp 26 H 08/24/22 08:11 BP 159/77 08/24/22 08:11 Pulse Ox 91 L 08/24/22 13:04 FiO2 90 08/24/22 13:04 Intake & Output 08/23/22 08/24/22 08/24/22 18:59 06:59 18:59 Intake Total 240 Output Total 1025 600 Balance -1025 240 -600 Intake: Oral 240 Output: Urine 1025 600 Other: Voiding Method Urinal - Exam GENERAL DESCRIPTION: An elderly male lying in bed in no distress HEENT: Extensor thrush RESPIRATORY SYSTEM: Unlabored breathing , coarse breath sounds bilaterally HEART: S1 S2 regular rate and rhythm , ABDOMEN: Soft , no tenderness EXTREMITIES: No edema feet - Labs CBC & Chem 7: 08/24/22 07:24 08/25/22 11:09 Labs: Abnormal Lab Results - Last 24 Hours (Table) 08/23/22 08/23/22 08/24/22 Range/Units 16:52 20:47 07:24 WBC (4.50-10.00) X 10*3/uL MCHC (32.0-37.0) g/dL Immature Gran # (0.00-0.04) X 10*3/uL Neutrophils # (1.80-7.70) X 10*3/uL Eosinophils # (0.04-0.35) X 10*3/uL BUN/Creatinine Ratio 27.50 H (12.00-20.00) Ratio POC Glucose (mg/dL) 243 H 239 H (70-110) mg/dL Calcium 8.5 L (8.7-10.3) mg/dL Lactate Dehydrogenase (313-618) U/L C-Reactive Protein (<1.0) mg/dL Total Protein 5.8 L (6.2-8.2) g/dL Albumin 3.4 L (3.8-4.9) g/dL Albumin/Globulin Ratio 1.42 L (1.60-3.17) g/dL 08/24/22 08/24/22 08/24/22 Range/Units 07:24 11:28 12:41 WBC 21.79 H (4.50-10.00) X 10*3/uL MCHC 31.8 L (32.0-37.0) g/dL Immature Gran # 0.16 H (0.00-0.04) X 10*3/uL Neutrophils # 19.54 H (1.80-7.70) X 10*3/uL Eosinophils # 0 L (0.04-0.35) X 10*3/uL BUN/Creatinine Ratio (12.00-20.00) Ratio POC Glucose (mg/dL) 263 H (70-110) mg/dL Calcium (8.7-10.3) mg/dL Lactate Dehydrogenase 1060 H (313-618) U/L C-Reactive Protein 2.8 H (<1.0) mg/dL Total Protein (6.2-8.2) g/dL Albumin (3.8-4.9) g/dL Albumin/Globulin Ratio (1.60-3.17) g/dL Microbiology - Last 24 Hours (Table) 08/23/22 09:09 Gram Stain - Preliminary Sputum Sputum Culture - Preliminary 08/23/22 12:19 Nasal Screen MRSA/MSSA - Preliminary Nasal Swab 08/22/22 13:08 Blood Culture - Preliminary Blood No Growth after 24 hours 08/22/22 13:05 Blood Culture - Preliminary Blood No Growth after 24 hours Assessment and Plan (1) Pneumonia Current Visit: Yes Status: Acute Code(s): J18.9 - PNEUMONIA, UNSPECIFIED ORGANISM SNOMED Code(s): 655041281 (2) Thrush Current Visit: Yes Status: Acute Code(s): B37.0 - CANDIDAL STOMATITIS SNOMED Code(s): 79176433 Plan: 1patient with worsening respiratory status and this patient has been to the hospital for almost 2 weeks now with initial diagnosis of COVID-19 for the patient family has refused remdesivir that may have helped him now with worsening respiratory status concerning for possible secondary bacterial pneumonia and will need to cover for the resistant gram-positive as well as gram-negative. 2sputum culture has been obtained and results are currently pending 3patient to continue with the cefepime and vancomycin pharmacy to dose target trough of 15 we will repeat his inflammatory markers and Procalcitonin see the need for continuing antibiotic discussed with the pulmonary 4patient with extensive oral thrush to continue with the nystatin swish and swallow and Diflucan Time with Patient: Less than 30
--- NOTE | 2022-08-25 22:26 | P.PN ---
Subjective Progress Note Date: 08/25/22 Principal diagnosis: Nosocomial pneumonia and thrush Patient is a 82-year male with a past medical history significant for diabetes mellitus hypertension hyperlipidemia presenting to the ER for evaluation of increasing shortness of breath and cough, patient did have a p ositive COVID test and CT angiogram of the chest did shows diffuse pulmonary infiltrate patient family apparently refused remdesivir , patient subsequently was noticed to have a worsening respiratory distress status and worsening white count concerning for possible nosocomial pneumonia. on today's evaluation that is 08/25/2022, the patient continues to be afebrile patient is breathing slightly cooperative lady who was still requiring high flow oxygen, the patient denies having any chest pain no worsening, no abdominal pain no diarrhea Objective - Vital Signs Vital signs: Vital Signs Temp 97.1 F L 08/24/22 23:07 Pulse 73 08/25/22 12:05 Resp 21 08/25/22 12:05 BP 131/64 08/25/22 12:05 Pulse Ox 88 L 08/25/22 12:05 FiO2 90 08/25/22 12:36 Intake & Output 08/24/22 08/25/22 08/25/22 18:59 06:59 18:59 Output Total 1300 550 Balance -1300 -550 Weight 77.8 kg Output: Urine 1300 550 Other: Voiding Method Urinal Urinal Urinal - Exam GENERAL DESCRIPTION: An elderly male lying in bed in no distress HEENT: Extensor thrush RESPIRATORY SYSTEM: Unlabored breathing , coarse breath sounds bilaterally HEART: S1 S2 regular rate and rhythm , ABDOMEN: Soft , no tenderness EXTREMITIES: No edema feet - Labs CBC & Chem 7: 08/24/22 07:24 08/25/22 11:09 Labs: Abnormal Lab Results - Last 24 Hours (Table) 08/24/22 08/24/22 08/25/22 Range/Units 16:29 20:01 06:18 D-Dimer (<0.60) mg/L FEU POC Glucose (mg/dL) 270 H 134 H 113 H (70-110) mg/dL Lactate Dehydrogenase (313-618) U/L C-Reactive Protein (<1.0) mg/dL 08/25/22 08/25/22 08/25/22 Range/Units 11:09 11:09 11:34 D-Dimer 12.48 H (<0.60) mg/L FEU POC Glucose (mg/dL) 124 H (70-110) mg/dL Lactate Dehydrogenase 1048 H (313-618) U/L C-Reactive Protein 1.8 H (<1.0) mg/dL Microbiology - Last 24 Hours (Table) 08/23/22 09:09 Gram Stain - Final Sputum Sputum Culture - Final Laura albicans 08/23/22 12:19 Nasal Screen MRSA/MSSA - Final Nasal Swab 08/22/22 13:08 Blood Culture - Preliminary Blood No Growth after 48 hours 08/22/22 13:05 Blood Culture - Preliminary Blood No Growth after 48 hours Assessment and Plan (1) Pneumonia Current Visit: Yes Status: Acute Code(s): J18.9 - PNEUMONIA, UNSPECIFIED ORGANISM SNOMED Code(s): 559585888 (2) Thrush Current Visit: Yes Status: Acute Code(s): B37.0 - CANDIDAL STOMATITIS SNOMED Code(s): 74283173 Plan: 1patient with worsening respiratory status and this patient has been to the hospital for almost 2 weeks now with initial diagnosis of COVID-19 for the patient family has refused remdesivir that may have helped him now with worsening respiratory status concerning for possible secondary bacterial pneumonia and will need to cover for the resistant gram-positive as well as gram-negative. 2sputum culture has been obtained and results are currently pending 3patient did have a normal pro-calcitonin making bacterial pneumonia misa less likely antibiotic to be discontinued as per discussion with the pulmonary and is currently being worked up for possible thromboembolic phenomena with elevated d- dimer. 4patient with extensive oral thrush to continue with the nystatin swish and swallow and Diflucan Time with Patient: Less than 30
[2022-08-26] MEDS: methylPREDNISolone SOD SUCCI 125 MG/2 ML VIAL IV SCH ×5 (00:21→23:44)
[2022-08-26 06:24] LABS: Glucose,Whole Blood 86 mg/dL (70-110)
[2022-08-26] MEDS: INSULIN ASPART (NovoLOG) 100 UNIT/ML VIAL SQ SCH ×4 (06:29→22:27)
[2022-08-26] MEDS: ALBUTEROL HFA INHALER INHALATION SCH ×4 (08:10→21:33)
[2022-08-26 08:23] LABS: HCT 41.9 % (39.0-53.0); HGB 13.7 gm/dL (13.0-17.5); MCH 28.8 pg (25.0-35.0); MCHC 32.6 g/dL (31.0-37.0); MCV 88.3 fL (80.0-100.0); Mean Platelet Volume 7.9; Platelet Count 248 k/uL (150-450); RBC 4.75 m/uL (4.30-5.90); RDW 12.5 % (11.5-15.5); WBC 20.3 k/uL (3.8-10.6)
[2022-08-26] MEDS: MAGNESIUM OXIDE 400 MG TAB PO SCH (08:23)
[2022-08-26] MEDS: FLUCONAZOLE IN NACL,ISO-OSM 200 MG in SALINE 1 100ML.BAG IVPB SCH (08:23)
[2022-08-26] MEDS: NYSTATIN 100,000 UNIT/ML SUSP 500,000 UNIT/5 ML CUP PO SCH ×4 (08:23→20:37)
[2022-08-26] MEDS: ENOXAPARIN 40 MG/0.4 ML SYRINGE SQ SCH ×2 (08:23→20:33)
[2022-08-26] MEDS: SODIUM CHLORIDE 0.9% 1,000 ML IV SCH (08:24)
[2022-08-26] MEDS: hydrALAZINE HCL 50 MG TAB PO SCH ×2 (08:24→20:33)
[2022-08-26] MEDS: LOSARTAN 50 MG TAB PO SCH (08:24)
[2022-08-26] MEDS: METOPROLOL TARTRATE 25 MG TAB PO SCH ×2 (08:24→20:33)
[2022-08-26] MEDS: hydroCHLOROthiazide 12.5 MG CAP PO SCH (08:24)
[2022-08-26] MEDS: guaiFENesin 600 MG TABLET.ER PO SCH ×2 (08:24→20:33)
[2022-08-26] MEDS: amLODIPine 5 MG TAB PO SCH ×2 (08:24→20:33)
[2022-08-26] MEDS: ZINC SULFATE 220 MG CAP PO SCH (08:24)
[2022-08-26] MEDS: CHOLECALCIFEROL 125 MCG (5000 IU) TABLET PO SCH (08:24)
[2022-08-26] MEDS: ASCORBIC ACID 500 MG TAB PO SCH ×2 (08:24→20:33)
[2022-08-26 08:58] LABS: ALT 42 U/L (4-49); AST 33 U/L (17-59); African American GFR (CKD) >90 (>60 ml/min/1.73 sqM); Albumin 3.1 g/dL (3.5-5.0); Alkaline Phosphatase 139 U/L (38-126); Anion Gap 4 mmol/L; Blood Urea Nitrogen 32 mg/dL (9-20); Calcium 8.1 mg/dL (8.4-10.2); Carbon Dioxide 29 mmol/L (22-30); Chloride 107 mmol/L (98-107); Glucose 63 mg/dL (74-99); LDH 1292 U/L (313-618); Non-African American GFR(CKD) 82 (>60 ml/min/1.73 sqM); Potassium 3.6 mmol/L (3.5-5.1); Sodium 140 mmol/L (137-145)
[2022-08-26 10:54] LABS: C Reactive Protein 1.5 mg/dL (<1.0)
[2022-08-26 11:41] LABS: Glucose,Whole Blood 128 mg/dL (70-110)
--- NOTE | 2022-08-26 16:05 | P.PN ---
Subjective Progress Note Date: 08/26/22 On 08/24/2022, I'm seeing the patient for a follow-up. This is a case of acute hypoxic respiratory failure secondary to Covid 19 related pneumonia. The patient is nonvaccinated. Since admission, the patient was on oxygen and his oxygen requirements have been progressively getting worse. He was on 5 L and gradually was brought up to 15 L an earlier this morning he was placed on high flow oxygen at 60 L with an FiO2 of 90%. His current pulse ox is around 90%.rest of the vitals are all stable. His labs from today show a white cell count 21.7 with a hemoglobin of 15.2 and a platelet count of 318. His white cell count is slightly improved compared to yesterday. Rest of the electrolytes are all within normal limits. Blood sugars are slightly elevated because of the use of systemic steroids. LFTs are essentially within normal limits. In terms of therapy, the patient is covered with IV cefepime as an empiric antibiotic coverage. He is also on Diflucan. He is on IV Solu-Medrol 60 mg every 6 hours and is also on vancomycin. His sputum analysis from 08/11/2022 showed pseudomonas and Laura albicans. Note that his pro calcitonin level has been 0.15 at the time of admission. His LDH level has been up to 1027 from 08/19/2022. His d-dimer is at 0.88 and the patient is on Lovenox 40 mg subcu for DVT prophylaxis. On 08/25/2022, the patient is being seen for a follow-up. The patient is essentially the same as yesterday. The patient remains on high flow oxygen at 60 L with an FiO2 of 90%. The current pulse ox is around 86%. Nevertheless, despite his hypoxemic, the patient denies having any worsening shortness of breath. He is able to communicate. I noted that the patient has completed his course of IV cefepime regarding pseudomonal growth in his lungs. The patient's pro-calcitonin level was low and I suggest discontinuing the IV antibiotics with cefepime. In same time, the patient seems to be outside the window for treatment with Barici. The patient remains on IV Solu-Medrol. The patient remains on Lovenox 40 mg subcu portably prophylaxis. LDH level of the d-dimer levels were both on the rise. D-dimer was at 12.4 and the LDH level was up to 1048. Based on that, I ordered a Doppler of the lower extremity and another CT angiogram on this patient. Note that the patient was receiving Lovenox for DVT prophylaxis and low likelihood for pulmonary embolism is less and this is most likely progression of his underlying pulmonary Covid 19 infection/pneumonia. On 08/26/2022, the patient is having no significant problems. Remains on steroids. Remains on high flow oxygen and the patient is currently on 55 L with an FiO2 of 90%. 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 LDH level is up to 1292 and a CRP level is at 1.5. Pro-calcitonin level is at 0.04. D-dimer is at 12.46. Doppler of the lower extremities were negative for for DVTs. Despite all this, the patient denies having any worsening in his respiratory status. He denies having any worsening shortness of breath. Is quite limited in terms of his exercise capacity as the patient is an hypoxic respiratory failure and the patient is dependent on high flow oxygen. No fever. No nausea vomiting or diarrhea. No chest pain. No altered mentation. Family was at the bedside. The patient remains on Lovenox 40 mg subcu for DVT prophylaxis. Objective - Vital Signs Vital signs: Vital Signs Temp 96.4 F L 08/26/22 11:55 Pulse 79 08/26/22 11:55 Resp 20 08/26/22 11:55 BP 134/71 08/26/22 11:55 Pulse Ox 90 L 08/26/22 11:55 FiO2 90 08/26/22 15:39 Intake & Output 08/25/22 08/26/22 08/26/22 18:59 06:59 18:59 Intake Total 780 360 Output Total 600 425 350 Balance -600 355 10 Weight 77.8 kg Intake: IV 240 Sodium Chloride 0.9% 1, 240 000 ml @ 20 mls/hr IV . Q24H [facility] Rx#:[id number] Oral 540 360 Output: Urine 600 425 350 Other: Voiding Method Urinal Urinal Urinal # Voids 1 - Exam No acute distress, oriented 3. No respiratory distress. Currently on 55 L high flow oxygen. The patient is currently on FiO2 of 90% HEENT examination is grossly unremarkable. Neck supple. Full range of motion. No adenopathy thyromegaly or neck vein distention. Cardiovascular examination reveals regular rhythm rate. S1-S2 normal. No S3 or S4. No discernible murmur noted. Heart rate 82 bpm. Lungs reveal scattered bilateral rhonchi. Bibasilar crackles noted. No wheezes. . Breath sounds are equal bilaterally. Abdomen soft bowel sounds are heard. No masses or tenderness. Extremities are intact. No cyanosis clubbing or edema. Skin is without rash or lesion. Neurologic examination is brief but nonfocal. - Labs CBC & Chem 7: 08/26/22 08:00 08/26/22 08:00 Labs: Abnormal Lab Results - Last 24 Hours (Table) 08/25/22 08/25/22 08/26/22 Range/Units 16:56 20:21 08:00 WBC (3.8-10.6) k/uL D-Dimer (<0.60) mg/L FEU BUN 32 H (9-20) mg/dL Glucose 63 L (74-99) mg/dL POC Glucose (mg/dL) 363 H 209 H (70-110) mg/dL Calcium 8.1 L (8.4-10.2) mg/dL Alkaline Phosphatase 139 H (38-126) U/L Lactate Dehydrogenase 1292 H (313-618) U/L C-Reactive Protein 1.5 H (<1.0) mg/dL Total Protein 6.0 L (6.3-8.2) g/dL Albumin 3.1 L (3.5-5.0) g/dL 08/26/22 08/26/22 08/26/22 Range/Units 08:00 08:00 11:40 WBC 20.3 H (3.8-10.6) k/uL D-Dimer 12.46 H (<0.60) mg/L FEU BUN (9-20) mg/dL Glucose (74-99) mg/dL POC Glucose (mg/dL) 128 H (70-110) mg/dL Calcium (8.4-10.2) mg/dL Alkaline Phosphatase (38-126) U/L Lactate Dehydrogenase (313-618) U/L C-Reactive Protein (<1.0) mg/dL Total Protein (6.3-8.2) g/dL Albumin (3.5-5.0) g/dL Microbiology - Last 24 Hours (Table) 08/22/22 13:08 Blood Culture - Preliminary Blood No Growth after 96 hours 08/22/22 13:05 Blood Culture - Preliminary Blood No Growth after 96 hours 08/23/22 09:09 Gram Stain - Final Sputum Sputum Culture - Final Alura albicans Assessment and Plan Plan: Acute hypoxic respiratory failure secondary to COVID-19 pneumonia, nonvaccinated. Currently on high flow oxygen at 55 L with an FiO2 of 90%. Reviewed the chest x-ray from 08/23/2022 and there is no major interval change. There is bilateral pulmonary infiltrates, rather diffuse in the right lower lobe, an area of focal consolidation in the History of the left lower lobe. cta of the time of admission on 08/09/2022 showed no evidence of any filling defects or pulmonary embolism. The patient has been treated with Solu-Medrol 60 mg every 6 hours. Inflammatory markers including LDH were on the rise. Pro- calcitonin level was low. D-dimer is mildly elevated. D-dimer is on the rise in the Doppler of the lower oximetry has been negative and the patient remains on Lovenox, for prophylaxis. Pseudomonas fluorescence in sputum culture, treated. The patient completed antibiotic course, the patient is currently off antibiotics and the patient has a low pro-calcitonin level. Type 2 diabetes. Benign essential hypertension. Dyslipidemia. 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 Plan: Continue high flow oxygen Not a candidate for Baricitinib. Recheck LDH, d-dimer is, CRP and pro-calcitonin within next 24 hours Doppler of the lower extremities been negative Discussed the findings with the family I reviewed the CAT scan of the chest that showed diffuse bilateral pulmonary infiltrates from 08/09/2022. There is also evidence of pleural plaquing/asbestosis. This CAT scan was on atenolol diagnosis Condition is unchanged compared to yesterday. Overall prognosis for based above-mentioned comorbidities.
[2022-08-26 16:42] LABS: Glucose,Whole Blood 241 mg/dL (70-110)
--- NOTE | 2022-08-26 18:02 | P.PN ---
Subjective Progress Note Date: 08/26/22 Hospital course: Patient is a pleasant 82-year-old male with a past medical history of asbestosis, hypertension, hyperlipidemia, and type II eqp-iybnnok-tpmcyxnoj diabetes mellitus. He presented to the hospital on 08/09/22 with a chief complaint of shortness of breath. Upon arrival to our facility patient was found to be in acute hypoxic respiratory failure with SpO2 of 54% on room air requiring placement on continuous BiPAP. Patient was weaned off of BiPAP and placed on AirVo. Chest x-ray revealed moderately severe pulmonary interstitial edema reporting coarse interstitial extensive infiltrates in bilateral lungs. CBC and BMP showing no significant abnormalities. Troponin was negative at less than 0.012. Patient's initial lactic acid was 3.2. Ferritin elevated at 391, CRP initially 6.8, pro-calcitonin 0.15, and d-dimer was 1.11. CTA chest completed revealing extensive pulmonary infiltrates, pulmonary emphysema, and mediastinal and peribronchial adenopathy, however ruled out pulmonary emboli. EKG was sinus mechanism with no significant T-wave or ST abnormalities. Patient tested positive for Covid 19 infection and reported that he had not received any of his COVID-19 vaccinations and per documentation in chart patient and his son were adamant against patient receiving Remdesivir. Patient was admitted to the ICU under our services with consultation to body care manager. Sputum culture resulting positive for Pseudomonas fluorescence and Laura albicans and infectious disease was consulted. Patient receiving IV antibiotics cefepime, vancomycin and fluconazole. Patient currently remains on AirVO 15 L (60 L/90%). Blood and sputum cultures were repeated on 08/22/22 along with MRSA swab and these cultures showing no growth to date. Repeat x-ray completed 08/22/22 continues to show persistent bilateral infiltrates with left greater than right. Secondary to increasing d-dimer, discussed with pharmacy and guidelines recommending increasing Lovenox dose to 0.5 mg/kg and orders were placed at this time. Physical exam: Patient seen and fully evaluated at bedside this morning. Patient sitting up in bed and he remains on AirVo 60 L/90% with SpO2 of 90% at time of assessment, patient's brother is visiting at bedside and patient currently having any new complaints at this time. Patient does report that his sputum production is beco nina thicker and harder to clear. Patient reports he continues to have a difficult time even standing to use the urinal due to significant dyspnea resulting in desaturations. He continues to have leukocytosis with WBC count of 20.3 with elevated inflammatory markers with d-dimer 12.46 CRP 1.5 and LDH of 1292. We will continue with Lovenox 40 mg subcu every 12 hours. Patient remains on Ventolin inhaler treatments, guaifenesin, and Solu-Medrol. He was encouraged to continue use of flutter valve and to increase oral fluid intake to help thin secretions. Patient also to continue fluconazole and nystatin as directed by infectious disease. Vital signs reviewed and stable. General: Nontoxic, no distress and appears stated age. Derm: Skin warm and dry, normal coloration for ethnicity. Head: Atraumatic, normocephalic and symmetric. Eyes: EOMs intact, no lid lag, and anicteric sclera Mouth: no lip lesions, mucus membranes moist Cardiovascular: regular rate and rhythm with normal S1S2, no murmur, positive posterior tibial pulses bilaterally, and cap refill < 2 seconds. Lungs: Respirations even, regular, and unlabored on AirVo. Lungs diffuse rhonchi with bibasilar crackles. No wheezing noted. Conversational dyspnea was present. Abdominal: soft, nontender to palpation, no guarding, no appreciable organomegaly Ext: ROM intact. No gross muscle atrophy, no edema, no contractures Neuro: Speech clear, face symmetrical and CN II-XII grossly intact with no noted focal neuro deficits Psych: Alert and oriented to person, place, time, and situation. Appropriate and pleasant affect. Assessment and Plan of Care: COVID-19 pneumonia Pseudomonas fluorescence and Laura albicans bacterial pneumonia Acute respiratory failure with hypoxia, multifactorial resulting from Covid 19 infection, Pseudomonas fluorescence bacterial pneumonia, and underlying asbestosis. Leukocytosis, multifactorial secondary to above Elevated d-dimer, likely secondary to worsening Covid infection History of asbestosis -Oxygenation to be administered and titrated as needed to maintain SPO2 equal to or greater than 90% -Telemetry monitoring. -Monitor Pulse-oximetry -Ventolin inhaler scheduled for times daily and 4 times daily as needed for SOB and/or wheezing -Encourage use of Flutter valve and Incentive Spirometry -Steroids: SoluMedrol 60 mg IVP every 6 hours -Sputum culture positive for Pseudomonas fluorescence and Laura albicans -Continue with fluconazole and nystatin. -Cefepime and vancomycin discontinued 08/24/22 after negative pro-calcitonin results. 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 Lactic acidosis, secondary to above. Resolved Oral thrush -Per recommendations of infectious disease patient was started on nystatin swish and swallow addition to fluconazole 200 mg IVPB daily. Diabetes mellitus type II with hyperglycemia -Hemoglobin A1c 7.2%. -Hold oral medications in place patient on glycemic protocol with NovoLog sliding scale throughout hospitalization. -Despite sliding scale patient had continued hyperglycemia, likely secondary to IV steroids and thus was started on long-acting Levemir 18 units nightly in addition to sliding scale. Hypertension, resistant hypertension currently stable on home medication regimen. -Monitor vital signs and continue daily medication regimen with amlodipine, clonidine patch, hydralazine, hydrochlorothiazide, losartan, and metoprolol. CODE STATUS: Full code with instructions. Patient YES to CPR and other interventions but NO to mechanical ventilation. DVT prophylaxis: Lovenox Discussed with: Patient and RN Anticipated discharge date: Clinical course to determine Anticipated discharge place: Clinical course to determine, prognosis guarded remain unable to wean down oxygen. A total of 35 minutes was spent on the care of this complex patient more than 50% of the time was spent in counseling and care coordination. Objective - Vital Signs Vital signs: Vital Signs Temp 97.7 F 08/26/22 04:00 Pulse 86 08/26/22 04:00 Resp 18 08/26/22 04:00 BP 139/71 08/26/22 04:00 Pulse Ox 94 L 08/26/22 08:11 FiO2 90 08/26/22 08:11 Intake & Output 08/25/22 08/26/22 08/26/22 18:59 06:59 18:59 Intake Total 780 Output Total 600 425 Balance -600 355 Weight 77.8 kg Intake: IV 240 Sodium Chloride 0.9% 1, 240 000 ml @ 20 mls/hr IV . Q24H [facility] Rx#:[id number] Oral 540 Output: Urine 600 425 Other: Voiding Method Urinal Urinal # Voids 1 - Labs CBC & Chem 7: 08/26/22 08:00 08/26/22 08:00 Labs: Abnormal Lab Results - Last 24 Hours (Table) 08/25/22 08/25/22 08/25/22 Range/Units 11:09 11:09 11:34 WBC (3.8-10.6) k/uL D-Dimer 12.48 H (<0.60) mg/L FEU POC Glucose (mg/dL) 124 H (70-110) mg/dL Lactate Dehydrogenase 1048 H (313-618) U/L C-Reactive Protein 1.8 H (<1.0) mg/dL 08/25/22 08/25/22 08/26/22 Range/Units 16:56 20:21 08:00 WBC 20.3 H (3.8-10.6) k/uL D-Dimer (<0.60) mg/L FEU POC Glucose (mg/dL) 363 H 209 H (70-110) mg/dL Lactate Dehydrogenase (313-618) U/L C-Reactive Protein (<1.0) mg/dL 08/26/22 Range/Units 08:00 WBC (3.8-10.6) k/uL D-Dimer 12.46 H (<0.60) mg/L FEU POC Glucose (mg/dL) (70-110) mg/dL Lactate Dehydrogenase (313-618) U/L C-Reactive Protein (<1.0) mg/dL Microbiology - Last 24 Hours (Table) 08/22/22 13:05 Blood Culture - Preliminary Blood No Growth after 72 hours 08/22/22 13:08 Blood Culture - Preliminary Blood No Growth after 72 hours 08/23/22 09:09 Gram Stain - Final Sputum Sputum Culture - Final Laura albicans Assessment and Plan Assessment: Attending Note Aditya Jordan NP rendered care for this patient independently, reviewed the findings and plan as documented in the note above. I did not physically speak with our examined the patient on this date.
[2022-08-26 20:21] LABS: Glucose,Whole Blood 216 mg/dL (70-110)
[2022-08-26] MEDS: INSULIN DETEMIR (LEVEMIR) 100 UNIT/ML SYR SQ SCH (20:33)
[2022-08-27 05:56] LABS: Glucose,Whole Blood 71 mg/dL (70-110)
[2022-08-27] MEDS: SODIUM CHLORIDE 0.9% 1,000 ML IV SCH (06:47)
[2022-08-27] MEDS: methylPREDNISolone SOD SUCCI 125 MG/2 ML VIAL IV SCH ×3 (06:47→17:07)
[2022-08-27] MEDS: INSULIN ASPART (NovoLOG) 100 UNIT/ML VIAL SQ SCH ×4 (06:49→23:28)
[2022-08-27] MEDS: ALBUTEROL HFA INHALER INHALATION SCH ×4 (08:09→19:58)
[2022-08-27] MEDS: hydrALAZINE HCL 50 MG TAB PO SCH ×2 (10:23→23:27)
[2022-08-27] MEDS: amLODIPine 5 MG TAB PO SCH ×2 (10:23→23:27)
[2022-08-27] MEDS: hydroCHLOROthiazide 12.5 MG CAP PO SCH (10:23)
[2022-08-27] MEDS: METOPROLOL TARTRATE 25 MG TAB PO SCH ×2 (10:23→23:28)
[2022-08-27] MEDS: LOSARTAN 50 MG TAB PO SCH (10:24)
--- NOTE | 2022-08-27 10:28 | P.PN ---
Subjective Progress Note Date: 08/26/22 Principal diagnosis: Nosocomial pneumonia and thrush Patient is a 82-year male with a past medical history significant for diabetes mellitus hypertension hyperlipidemia presenting to the ER for evaluation of increasing shortness of breath and cough, patient did have a p ositive COVID test and CT angiogram of the chest did shows diffuse pulmonary infiltrate patient family apparently refused remdesivir , patient subsequently was noticed to have a worsening respiratory distress status and worsening white count concerning for possible nosocomial pneumonia. on today's evaluation that is 08/26/2022, the patient remains to be afebrile patient is breathing slightly comfortably today, however is still requiring high flow oxygen, the patient denies having any chest pain no worsening cough or sputum production, no abdominal pain no diarrhea Objective - Vital Signs Vital signs: Vital Signs Temp 96.4 F L 08/26/22 11:55 Pulse 79 08/26/22 11:55 Resp 20 08/26/22 11:55 BP 134/71 08/26/22 11:55 Pulse Ox 90 L 08/26/22 11:55 FiO2 90 08/26/22 11:55 Intake & Output 08/25/22 08/26/22 08/26/22 18:59 06:59 18:59 Intake Total 780 360 Output Total 600 425 350 Balance -600 355 10 Weight 77.8 kg Intake: IV 240 Sodium Chloride 0.9% 1, 240 000 ml @ 20 mls/hr IV . Q24H [facility] Rx#:[id number] Oral 540 360 Output: Urine 600 425 350 Other: Voiding Method Urinal Urinal Urinal # Voids 1 - Exam GENERAL DESCRIPTION: An elderly male lying in bed in no distress HEENT: Extensor thrush RESPIRATORY SYSTEM: Unlabored breathing , coarse breath sounds bilaterally HEART: S1 S2 regular rate and rhythm , ABDOMEN: Soft , no tenderness EXTREMITIES: No edema feet - Labs CBC & Chem 7: 08/26/22 08:00 08/26/22 08:00 Labs: Abnormal Lab Results - Last 24 Hours (Table) 08/25/22 08/25/22 08/26/22 Range/Units 16:56 20:21 08:00 WBC (3.8-10.6) k/uL D-Dimer (<0.60) mg/L FEU BUN 32 H (9-20) mg/dL Glucose 63 L (74-99) mg/dL POC Glucose (mg/dL) 363 H 209 H (70-110) mg/dL Calcium 8.1 L (8.4-10.2) mg/dL Alkaline Phosphatase 139 H (38-126) U/L Lactate Dehydrogenase 1292 H (313-618) U/L C-Reactive Protein 1.5 H (<1.0) mg/dL Total Protein 6.0 L (6.3-8.2) g/dL Albumin 3.1 L (3.5-5.0) g/dL 08/26/22 08/26/22 08/26/22 Range/Units 08:00 08:00 11:40 WBC 20.3 H (3.8-10.6) k/uL D-Dimer 12.46 H (<0.60) mg/L FEU BUN (9-20) mg/dL Glucose (74-99) mg/dL POC Glucose (mg/dL) 128 H (70-110) mg/dL Calcium (8.4-10.2) mg/dL Alkaline Phosphatase (38-126) U/L Lactate Dehydrogenase (313-618) U/L C-Reactive Protein (<1.0) mg/dL Total Protein (6.3-8.2) g/dL Albumin (3.5-5.0) g/dL Microbiology - Last 24 Hours (Table) 08/22/22 13:05 Blood Culture - Preliminary Blood No Growth after 72 hours 08/22/22 13:08 Blood Culture - Preliminary Blood No Growth after 72 hours 08/23/22 09:09 Gram Stain - Final Sputum Sputum Culture - Final Laura albicans Assessment and Plan (1) Pneumonia Current Visit: Yes Status: Acute Code(s): J18.9 - PNEUMONIA, UNSPECIFIED ORGANISM SNOMED Code(s): 192997110 (2) Thrush Current Visit: Yes Status: Acute Code(s): B37.0 - CANDIDAL STOMATITIS SNOMED Code(s): 32048469 Plan: 1patient with worsening respiratory status and this patient has been to the hospital for almost 2 weeks now with initial diagnosis of COVID-19 for the patient family has refused remdesivir that may have helped him now with worsening respiratory status concerning for possible secondary bacterial pneumonia and will need to cover for the resistant gram-positive as well as gram-negative. 2sputum culture has been obtained and results are currently pending 3patient did have a normal pro-calcitonin making bacterial pneumonia to be less likely antibiotic has been discontinued we'll monitor the patient was off antib iotic, the patient did have lower extremity Doppler negative for DVT. 4patient with extensive oral thrush , patient to continue with the nystatin swish and swallow and Diflucan Time with Patient: Less than 30
[2022-08-27] MEDS: ASCORBIC ACID 500 MG TAB PO SCH ×2 (10:29→23:28)
[2022-08-27] MEDS: NYSTATIN 100,000 UNIT/ML SUSP 500,000 UNIT/5 ML CUP PO SCH ×4 (10:30→23:29)
[2022-08-27] MEDS: ENOXAPARIN 40 MG/0.4 ML SYRINGE SQ SCH ×2 (10:30→23:28)
[2022-08-27] MEDS: CHOLECALCIFEROL 125 MCG (5000 IU) TABLET PO SCH (10:30)
[2022-08-27] MEDS: ZINC SULFATE 220 MG CAP PO SCH (10:30)
[2022-08-27] MEDS: MAGNESIUM OXIDE 400 MG TAB PO SCH (10:31)
--- NOTE | 2022-08-27 10:31 | XR ---
EXAMINATION TYPE: XR chest 1V portable DATE OF EXAM: 08/27/2022 COMPARISON: 08/23/2022 HISTORY: Cough TECHNIQUE: Single frontal view of the chest is obtained. FINDINGS: Patchy bilateral infiltrates greater on the left stable. Underlying COPD suspected with no pneumothorax. Sclerotic changes involving the humeral head are nonspecific and could be on the basis of osteonecrosis. Atherosclerotic change aorta. Heart size normal. IMPRESSION: 1. Diffuse bilateral infiltrate greater on the left stable.
[2022-08-27] MEDS ORDERED: guaiFENesin SYRUP 100MG/5ML 200 MG/10 ML CUP PO PRN (10:46)
[2022-08-27 11:29] LABS: Glucose,Whole Blood 112 mg/dL (70-110)
--- NOTE | 2022-08-27 11:48 | P.PN ---
Subjective Progress Note Date: 08/27/22 On 08/24/2022, I'm seeing the patient for a follow-up. This is a case of acute hypoxic respiratory failure secondary to Covid 19 related pneumonia. The patient is nonvaccinated. Since admission, the patient was on oxygen and his oxygen requirements have been progressively getting worse. He was on 5 L and gradually was brought up to 15 L an earlier this morning he was placed on high flow oxygen at 60 L with an FiO2 of 90%. His current pulse ox is around 90%.rest of the vitals are all stable. His labs from today show a white cell count 21.7 with a hemoglobin of 15.2 and a platelet count of 318. His white cell count is slightly improved compared to yesterday. Rest of the electrolytes are all within normal limits. Blood sugars are slightly elevated because of the use of systemic steroids. LFTs are essentially within normal limits. In terms of therapy, the patient is covered with IV cefepime as an empiric antibiotic coverage. He is also on Diflucan. He is on IV Solu-Medrol 60 mg every 6 hours and is also on vancomycin. His sputum analysis from 08/11/2022 showed pseudomonas and Laura albicans. Note that his pro calcitonin level has been 0.15 at the time of admission. His LDH level has been up to 1027 from 08/19/2022. His d-dimer is at 0.88 and the patient is on Lovenox 40 mg subcu for DVT prophylaxis. On 08/25/2022, the patient is being seen for a follow-up. The patient is essentially the same as yesterday. The patient remains on high flow oxygen at 60 L with an FiO2 of 90%. The current pulse ox is around 86%. Nevertheless, despite his hypoxemic, the patient denies having any worsening shortness of breath. He is able to communicate. I noted that the patient has completed his course of IV cefepime regarding pseudomonal growth in his lungs. The patient's pro-calcitonin level was low and I suggest discontinuing the IV antibiotics with cefepime. In same time, the patient seems to be outside the window for treatment with Barici. The patient remains on IV Solu-Medrol. The patient remains on Lovenox 40 mg subcu portably prophylaxis. LDH level of the d-dimer levels were both on the rise. D-dimer was at 12.4 and the LDH level was up to 1048. Based on that, I ordered a Doppler of the lower extremity and another CT angiogram on this patient. Note that the patient was receiving Lovenox for DVT prophylaxis and low likelihood for pulmonary embolism is less and this is most likely progression of his underlying pulmonary Covid 19 infection/pneumonia. On 08/26/2022, the patient is having no significant problems. Remains on steroids. Remains on high flow oxygen and the patient is currently on 55 L with an FiO2 of 90%. 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 LDH level is up to 1292 and a CRP level is at 1.5. Pro-calcitonin level is at 0.04. D-dimer is at 12.46. Doppler of the lower extremities were negative for for DVTs. Despite all this, the patient denies having any worsening in his respiratory status. He denies having any worsening shortness of breath. Is quite limited in terms of his exercise capacity as the patient is an hypoxic respiratory failure and the patient is dependent on high flow oxygen. No fever. No nausea vomiting or diarrhea. No chest pain. No altered mentation. Family was at the bedside. The patient remains on Lovenox 40 mg subcu for DVT prophylaxis. 08/27/2022, the patient is still struggling with his breathing. He remains on high flow oxygen with 55 L an FiO2 of 90% and the patient is also using 100% nonrebreather facemask. His pulse ox is currently in the mid 80s. As mentioned, the patient has not showing any signs of recovery in the patient's inflammatory markers including LDH and CRP in d-dimer is at all elevated. Those levels are also on the rise. The patient remains on IV Solu-Medrol 60 mg every 6 hours. . No fever. He short of breath and he is quite debilitated and is spending most of his time in bed. Oral intake is quite diminished. He is on Diflucan for oropharyngeal candidiasis. Otherwise, no other significant events over the past 24 hours. He is still on Lovenox for DVT prophylaxis 40 mg subcu and a Doppler of the lower extremities were also negative. The repeat INR today is down to 9.8. LDH on the rise in the current level is up to 1527. Objective - Vital Signs Vital signs: Vital Signs Temp 98.5 F 08/27/22 08:00 Pulse 95 08/27/22 08:00 Resp 22 08/27/22 08:00 BP 153/71 08/27/22 08:00 Pulse Ox 90 L 08/27/22 08:10 FiO2 90 08/27/22 08:10 Intake & Output 08/26/22 08/27/22 08/27/22 18:59 06:59 18:59 Intake Total 540 340 Output Total 575 300 Balance -35 40 Intake: IV 240 Sodium Chloride 0.9% 1, 240 000 ml @ 20 mls/hr IV . Q24H [facility] Rx#:[id number] Intake, IV Titration 100 Amount Fluconazole in NaCl,Iso- 100 Osm 200 mg In Saline 1 100ml.bag @ 100 mls/hr IVPB DAILY [facility] Rx#: [id number] Oral 540 Output: Urine 575 300 Other: Voiding Method Urinal Urinal Urinal - Exam No acute distress, oriented 3. No respiratory distress. Currently on 55 L high flow oxygen with an FiO2 of 90% in addition to 100% nonrebreather facemask. Head exam was generally normal. There was no scleral icterus or corneal arcus. Mucous membranes were dry Neck supple. Full range of motion. No adenopathy thyromegaly or neck vein distention. Cardiovascular examination reveals regular rhythm rate. S1-S2 normal. No S3 or S4. No discernible murmur noted. Heart rate 82 bpm. Lungs reveal scattered bilateral rhonchi. Bibasilar crackles noted. No wheezes. . Breath sounds are equal bilaterally. Abdomen soft bowel sounds are heard. No masses or tenderness. Extremities are intact. No cyanosis clubbing or edema. Skin is without rash or lesion. Neurologic examination is brief but nonfocal. - Labs CBC & Chem 7: 08/26/22 08:00 08/26/22 08:00 Labs: Abnormal Lab Results - Last 24 Hours (Table) 08/26/22 08/26/22 08/27/22 Range/Units 16:40 20:20 10:19 D-Dimer (<0.60) mg/L FEU POC Glucose (mg/dL) 241 H 216 H (70-110) mg/dL Lactate Dehydrogenase 1527 H (313-618) U/L 08/27/22 08/27/22 Range/Units 10:19 11:26 D-Dimer 9.89 H (<0.60) mg/L FEU POC Glucose (mg/dL) 112 H (70-110) mg/dL Lactate Dehydrogenase (313-618) U/L Microbiology - Last 24 Hours (Table) 08/22/22 13:08 Blood Culture - Preliminary Blood No Growth after 96 hours 08/22/22 13:05 Blood Culture - Preliminary Blood No Growth after 96 hours Assessment and Plan Plan: Acute hypoxic respiratory failure secondary to COVID-19 pneumonia, nonvaccinate d. Currently on high flow oxygen at 55 L with an FiO2 of 90% in addition to 100% nonrebreather facemask. D-dimer is elevated. LDH is elevated. Doppler of the lower extremity is negative. CT angiogram at time of admission showed no evidence of any pulmonary embolism. The patient has ongoing coarse crackles in the mid and lower left is bilaterally. The patient remains on Lovenox 40 mg subcu for DVT prophylaxis. The patient remains on IV Solu-Medrol. Despite being on a on a percent nonrebreather and high flow oxygen at 55 L with an FiO2 of 90%, the patient's oxygen she is borderline and the pulse ox is currently in the mid 80s. He is very poor prognosis and there is obvious decompensation worsening in his Covid 19 related pneumonia. He has a DNR/DNI CODE STATUS. Pseudomonas fluorescence in sputum culture, treated. The patient completed antibiotic course, the patient is currently off antibiotics and the patient has a low pro-calcitonin level. Type 2 diabetes. Benign essential hypertension. Dyslipidemia. 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 Plan: Continue high flow oxygen in combination with 100% nonrebreather facemask. High flow oxygen with. 60 L an FiO2 of 90% Not a candidate for Baricitinib. There is a rise in the inflammatory markers of LDH, d-dimer is slightly lower. Pro-calcitonin level is also low at 0.04. Doppler of the lower extremities been negative Discussed the findings with the family I reviewed the CAT scan of the chest that showed diffuse bilateral pulmonary infiltrates from 08/09/2022. There is also evidence of pleural plaquing/asbestosis. This CAT scan was on atenolol diagnosis Condition is unchanged compared to yesterday. In fact, there may be some interval worsening in his oxygenation. Overall prognosis for based above- mentioned comorbidities. DNR/DNI CODE STATUS Poor prognosis poor based above-mentioned comorbidities.
[2022-08-27] MEDS: FLUCONAZOLE IN NACL,ISO-OSM 200 MG in SALINE 1 100ML.BAG IVPB SCH (12:18)
--- NOTE | 2022-08-27 13:30 | P.PN ---
Subjective Progress Note Date: 08/27/22 Hospital course: Patient is a pleasant 82-year-old male with a past medical history of asbestosis, hypertension, hyperlipidemia, and type II zel-[id number]-[id number] diabetes mellitus. He presented to the hospital on 08/09/22 with a chief complaint of shortness of breath. Upon arrival to our facility patient was found to be in acute hypoxic respiratory failure with SpO2 of 54% on room air requiring placement on continuous BiPAP. Patient was weaned off of BiPAP and placed on AirVo. Chest x-ray revealed moderately severe pulmonary interstitial edema reporting coarse interstitial extensive infiltrates in bilateral lungs. CBC and BMP showing no significant abnormalities. Troponin was negative at less than 0.012. Patient's initial lactic acid was 3.2. Ferritin elevated at 391, CRP initially 6.8, pro-calcitonin 0.15, and d-dimer was 1.11. CTA chest completed revealing extensive pulmonary infiltrates, pulmonary emphysema, and mediastinal and peribronchial adenopathy, however ruled out pulmonary emboli. EKG was sinus mechanism with no significant T-wave or ST abnormalities. Patient tested positive for Covid 19 infection and reported that he had not received any of his COVID-19 vaccinations and per documentation in chart patient and his son were adamant against patient receiving Remdesivir. Patient was admitted to the ICU under our services with consultation to aquatic facility manager. Sputum culture resulting positive for Pseudomonas fluorescence and Laura albicans and infectious disease was consulted. Patient receiving IV antibiotics cefepime, vancomycin and fluconazole. Patient currently remains on AirVO 15 L (60 L/90%). Blood and sputum cultures were repeated on 08/22/22 along with MRSA swab and these cultures showing no growth to date. Repeat x-ray completed 08/22/22 continues to show persistent bilateral infiltrates with left greater than right. Secondary to increasing d-dimer, discussed with pharmacy and guidelines recommending increasing Lovenox dose to 0.5 mg/kg and orders were placed at this time. Patient is not showing any improvement only further deterioration, poor prognosis. Physical exam: Patient seen and fully evaluated at bedside this morning, his condition deteriorating overnight. Patient is now on AirVO 55 L/90% in addition to a nonrebreather at 15 L (100%) with SpO2 of 84%. His d-dimer is decreasing down to 9.89 and LDH increasing to 1527. Patient's son at bedside. Order placed for CPT therapy every 4 hours and liquid Mucinex as patient unable to swallow Mucinex pills this morning stating they're too large and his sputum is too thick today. Due to patient's decreased oral intake over the past 24 hours, we will place him on gentle IV fluid hydration with 0.9% normal saline at 75 mL's per hour. The patient also had 2 consecutive mornings of hypoglycemia. Levemir decreased to 10 units nightly and blood glucose to be monitored before meals at bedtime and at 2 AM. Vital signs reviewed and stable. General: Nontoxic, no distress and appears stated age. Derm: Skin warm and dry, normal coloration for ethnicity. Head: Atraumatic, normocephalic and symmetric. Eyes: EOMs intact, no lid lag, and anicteric sclera Mouth: no lip lesions, mucus membranes moist Cardiovascular: regular rate and rhythm with normal S1S2, no murmur, positive posterior tibial pulses bilaterally, and cap refill < 2 seconds. Lungs: Respirations even, regular, and unlabored on AirVo. Lungs diffuse rhonchi with coarse bibasilar crackles. No wheezing noted. Conversational dyspnea was present. Abdominal: soft, nontender to palpation, no guarding, no appreciable organomegaly Ext: ROM intact. No gross muscle atrophy, no edema, no contractures Neuro: Speech clear, face symmetrical and CN II-XII grossly intact with no noted focal neuro deficits Psych: Alert and oriented to person, place, time, and situation. Appropriate and pleasant affect. Assessment and Plan of Care: COVID-19 pneumonia Pseudomonas fluorescence and Laura albicans bacterial pneumonia Acute respiratory failure with hypoxia, multifactorial resulting from Covid 19 infection, Pseudomonas fluorescence bacterial pneumonia, and underlying as bestosis. Leukocytosis, multifactorial secondary to above Elevated d-dimer, likely secondary to worsening Covid infection History of asbestosis -Oxygenation to be administered and titrated as needed to maintain SPO2 equal to or greater than 90% -Telemetry monitoring. -Monitor Pulse-oximetry -Ventolin inhaler scheduled for times daily and 4 times daily as needed for SOB and/or wheezing -Encourage use of Flutter valve and Incentive Spirometry -Steroids: SoluMedrol 60 mg IVP every 6 hours -Sputum culture positive for Pseudomonas fluorescence and Laura albicans -Continue with fluconazole and nystatin. -Cefepime and vancomycin discontinued 08/24/22 after negative pro-calcitonin results. -microarray specialist following -Infectious disease following -Secondary to increasing d-dimer, discussed with pharmacy and guidelines recommending increasing Lovenox dose to 0.5 mg/kg and orders were placed at this time. Lactic acidosis, secondary to above. Resolved Oral thrush -Per recommendations of infectious disease patient was started on nystatin swish and swallow addition to fluconazole 200 mg IVPB daily. Diabetes mellitus type II with hyperglycemia Morning episodes of hypoglycemia -Hemoglobin A1c 7.2%. -Hold oral medications in place patient on glycemic protocol with NovoLog slidin g scale throughout hospitalization. -Patient had 2 morning episodes of hypoglycemia, Levemir decreased from 18 units nightly down to 10 units nightly and orders placed for blood glucose checks before meals at bedtime and at 2 AM. Hypertension, resistant hypertension currently stable on home medication regimen. -Monitor vital signs and continue daily medication regimen with amlodipine, clonidine patch, hydralazine, hydrochlorothiazide, losartan, and metoprolol. CODE STATUS: DO NOT RESUSCITATE/DO NOT INTUBATE DVT prophylaxis: Lovenox Discussed with: Patient and RN Anticipated discharge date: Clinical course to determine, poor prognosis Anticipated discharge place: Clinical course to determine, prognosis guarded remain unable to wean down oxygen. A total of 38 minutes was spent on the care of this complex patient more than 50% of the time was spent in counseling and care coordination. Attending Note Aditya Jordan NP rendered care for this patient independently, reviewed the findings and plan as documented in the note above. I did not physically speak w ith our examined the patient on this date. Objective - Vital Signs Vital signs: Vital Signs Temp 97.2 F L 08/27/22 04:00 Pulse 101 H 08/27/22 04:00 Resp 24 08/27/22 04:00 BP 160/73 08/27/22 04:00 Pulse Ox 90 L 08/27/22 08:10 FiO2 90 08/27/22 08:10 Intake & Output 08/26/22 08/27/22 08/27/22 18:59 06:59 18:59 Intake Total 540 340 Output Total 575 300 Balance -35 40 Intake: IV 240 Sodium Chloride 0.9% 1, 240 000 ml @ 20 mls/hr IV . Q24H [facility] Rx#:[id number] Intake, IV Titration 100 Amount Fluconazole in NaCl,Iso- 100 Osm 200 mg In Saline 1 100ml.bag @ 100 mls/hr IVPB DAILY [facility] Rx#: [id number] Oral 540 Output: Urine 575 300 Other: Voiding Method Urinal Urinal - Labs CBC & Chem 7: 08/26/22 08:00 08/26/22 08:00 Labs: Abnormal Lab Results - Last 24 Hours (Table) 08/26/22 08/26/22 08/26/22 Range/Units 08:00 08:00 08:00 WBC 20.3 H (3.8-10.6) k/uL D-Dimer 12.46 H (<0.60) mg/L FEU BUN 32 H (9-20) mg/dL Glucose 63 L (74-99) mg/dL POC Glucose (mg/dL) (70-110) mg/dL Calcium 8.1 L (8.4-10.2) mg/dL Alkaline Phosphatase 139 H (38-126) U/L Lactate Dehydrogenase 1292 H (313-618) U/L C-Reactive Protein 1.5 H (<1.0) mg/dL Total Protein 6.0 L (6.3-8.2) g/dL Albumin 3.1 L (3.5-5.0) g/dL 08/26/22 08/26/22 08/26/22 Range/Units 11:40 16:40 20:20 WBC (3.8-10.6) k/uL D-Dimer (<0.60) mg/L FEU BUN (9-20) mg/dL Glucose (74-99) mg/dL POC Glucose (mg/dL) 128 H 241 H 216 H (70-110) mg/dL Calcium (8.4-10.2) mg/dL Alkaline Phosphatase (38-126) U/L Lactate Dehydrogenase (313-618) U/L C-Reactive Protein (<1.0) mg/dL Total Protein (6.3-8.2) g/dL Albumin (3.5-5.0) g/dL Microbiology - Last 24 Hours (Table) 08/22/22 13:08 Blood Culture - Preliminary Blood No Growth after 96 hours 08/22/22 13:05 Blood Culture - Preliminary Blood No Growth after 96 hours
[2022-08-27] MEDS: guaiFENesin 600 MG TABLET.ER PO SCH (14:28)
--- NOTE | 2022-08-27 16:11 | P.PN ---
Subjective Progress Note Date: 08/27/22 Principal diagnosis: Nosocomial pneumonia and thrush Patient is a 82-year male with a past medical history significant for diabetes mellitus hypertension hyperlipidemia presenting to the ER for evaluation of increasing shortness of breath and cough, patient did have a p ositive COVID test and CT angiogram of the chest did shows diffuse pulmonary infiltrate patient family apparently refused remdesivir , patient subsequently was noticed to have a worsening respiratory distress status and worsening white count concerning for possible nosocomial pneumonia. on today's evaluation that is 08/27/2022, the patient continues to be afebrile patient is breathing slightly comfortably however is requiring more supplemental oxygen including nonrebreather, the patient denies having any chest pain no worsening cough or sputum production, no abdominal pain or diarrhea Objective - Vital Signs Vital signs: Vital Signs Temp 97.3 F L 08/27/22 12:00 Pulse 82 08/27/22 12:00 Resp 22 08/27/22 12:00 BP 147/68 08/27/22 12:00 Pulse Ox 84 L 08/27/22 12:00 FiO2 90 08/27/22 12:00 Intake & Output 08/26/22 08/27/22 08/27/22 18:59 06:59 18:59 Intake Total 540 340 0 Output Total 575 300 Balance -35 40 0 Intake: IV 240 Sodium Chloride 0.9% 1, 240 000 ml @ 20 mls/hr IV . Q24H [facility] Rx#:[id number] Intake, IV Titration 100 Amount Fluconazole in NaCl,Iso- 100 Osm 200 mg In Saline 1 100ml.bag @ 100 mls/hr IVPB DAILY [facility] Rx#: [id number] Oral 540 0 Output: Urine 575 300 Other: Voiding Method Urinal Urinal Urinal - Exam GENERAL DESCRIPTION: An elderly male lying in bed in no distress HEENT: Extensor thrush RESPIRATORY SYSTEM: Unlabored breathing , coarse breath sounds bilaterally HEART: S1 S2 regular rate and rhythm , ABDOMEN: Soft , no tenderness EXTREMITIES: No edema feet - Labs CBC & Chem 7: 08/26/22 08:00 08/26/22 08:00 Labs: Abnormal Lab Results - Last 24 Hours (Table) 08/26/22 08/26/22 08/27/22 Range/Units 16:40 20:20 10:19 D-Dimer (<0.60) mg/L FEU POC Glucose (mg/dL) 241 H 216 H (70-110) mg/dL Lactate Dehydrogenase 1527 H (313-618) U/L 08/27/22 08/27/22 Range/Units 10:19 11:26 D-Dimer 9.89 H (<0.60) mg/L FEU POC Glucose (mg/dL) 112 H (70-110) mg/dL Lactate Dehydrogenase (313-618) U/L Microbiology - Last 24 Hours (Table) 08/22/22 13:08 Blood Culture - Preliminary Blood No Growth after 96 hours 08/22/22 13:05 Blood Culture - Preliminary Blood No Growth after 96 hours Assessment and Plan (1) Pneumonia Current Visit: Yes Status: Acute Code(s): J18.9 - PNEUMONIA, UNSPECIFIED ORGANISM SNOMED Code(s): 363088958 (2) Thrush Current Visit: Yes Status: Acute Code(s): B37.0 - CANDIDAL STOMATITIS SNOMED Code(s): 72575094 Plan: 1patient with worsening respiratory status and this patient has been to the hospital for almost 2 weeks now with initial diagnosis of COVID-19 for the patient family has refused remdesivir that may have helped him now with w orsening respiratory status concerning for possible secondary bacterial pneumonia and will need to cover for the resistant gram-positive as well as gram-negative. 2sputum culture has been obtained and results are currently pending 3patient did have a normal pro-calcitonin making bacterial pneumonia to be less likely antibiotic has been discontinued, the patient did have lower extremity Doppler negative for DVT. Patient to continue with the steroids and respiratory support per pulmonary 4patient with extensive oral thrush , patient to continue with the nystatin swish and swallow and Diflucan Prognosis remains to be guarded Time with Patient: Less than 30
[2022-08-27 16:23] VITALS: BP 141/75; PULSE 78; TEMP 97.8
[2022-08-27 16:38] LABS: Glucose,Whole Blood 130 mg/dL (70-110)
[2022-08-27 19:47] LABS: Glucose,Whole Blood 224 mg/dL (70-110)
[2022-08-27] MEDS ORDERED: MORPHINE SULFATE 2 MG/ML SYRINGE IVP STA (20:49)
[2022-08-27] MEDS ORDERED: INSULIN DETEMIR (LEVEMIR) 100 UNIT/ML SYR SQ SCH (21:00)
[2022-08-27] MEDS ORDERED: ONDANSETRON 4 MG/2 ML VIAL IVP PRN (22:38)
[2022-08-27] MEDS ORDERED: SCOPOLAMINE 1 MG/72 HR PATCH TRANSDERM SCH (22:45)
[2022-08-27] MEDS ORDERED: MORPHINE SULFATE (100 MG/2 ML) 100 MG in SODIUM CHLORIDE 0.9% 100 ML IV SCH (22:45)
[2022-08-27] MEDS: MORPHINE SULFATE 2 MG/ML SYRINGE IV PRN ×2 (22:54→23:38)
--- NOTE | 2022-08-27 23:57 | P.PN ---
Progress Note - Text Progress Note Date: 08/27/22 family and patient decided to go comfort care
[2022-08-28] MEDS: MORPHINE SULFATE 2 MG/ML SYRINGE IV PRN (00:07)
[2022-08-28 00:31] VITALS: RESP 38
[2022-08-28] MEDS: methylPREDNISolone SOD SUCCI 125 MG/2 ML VIAL IV SCH (04:13)
[2022-08-28] MEDS: SODIUM CHLORIDE 0.9% 1,000 ML IV SCH (04:13)
[2022-08-28] MEDS ORDERED: FLUCONAZOLE 100 MG TAB PO SCH (09:00)
--- NOTE | 2022-08-28 17:56 | P.DS ---
Providers Date of admission: 08/09/22 17:58 Expected date of discharge: 08/28/22 Attending physician: Rosibel Cerda, Consults: 08/09/22 17:58 Consult Physician Urgent Consulting Provider: Ole Berumen Consult Reason/Comments: COVID-19, asbestosis hx, BiPAP Do you want consulting provider notified?: Yes 08/22/22 10:19 Consult Physician Urgent Consulting Provider: Kianna Piper Consult Reason/Comments: pna Do you want consulting provider notified?: Yes Primary care physician: Dave Rosas Hospital Course: THIS IS NOT A DISCHARGE SUMMARY BUT A SUMMARY OF CARE PT IS WITH TIME OF PRONOUNCED 08/28/22 at 1:10 AM. Discharge Diagnosis: COVID-19 pneumonia Pseudomonas fluorescence and Laura albicans bacterial pneumonia Acute respiratory failure with hypoxia, multifactorial resulting from Covid 19 infection, Pseudomonas fluorescence bacterial pneumonia, and underlying asbestos is. Leukocytosis, multifactorial secondary to above Elevated d-dimer, likely secondary to worsening Covid infection History of asbestosis Lactic acidosis, secondary to above. Resolved Oral thrush Diabetes mellitus type II with hyperglycemia Morning episodes of hypoglycemia Resistant hypertension Hospital Course: Patient is a pleasant 82-year-old male with a past medical history of asbestosis, hypertension, hyperlipidemia, and type II nno-[id number]-ptudtytna diabetes mellitus. He presented to the hospital on 08/09/22 with a chief complaint of shortness of breath. Upon arrival to our facility patient was found to be in acute hypoxic respiratory failure with SpO2 of 54% on room air requiring placement on continuous BiPAP. Patient was weaned off of BiPAP and placed on AirVo. Chest x-ray revealed moderately severe pulmonary interstitial edema reporting coarse interstitial extensive infiltrates in bilateral lungs. CBC and BMP showing no significant abnormalities. Troponin was negative at less than 0.012. Patient's initial lactic acid was 3.2. Ferritin elevated at 391, CRP initially 6.8, pro-calcitonin 0.15, and d-dimer was 1.11. CTA chest completed revealing extensive pulmonary infiltrates, pulmonary emphysema, and mediastinal and peribronchial adenopathy, however ruled out pulmonary emboli. EKG was sinus mechanism with no significant T-wave or ST abnormalities. Patient tested positive for Covid 19 infection and reported that he had not received any of his COVID-19 vaccinations and per documentation in chart patient and his son were adamant against patient receiving Remdesivir. Patient was admitted to the ICU under our services with consultation to mechanical applications engineer and later transferred to ICU step down unit. Sputum culture resulting positive for Pseudomonas fluorescence and Laura albicans and infectious disease was consulted at that time. Patient received IV antibiotics cefepime, vancomycin a nd fluconazole. Blood and sputum cultures were repeated on 08/22/22 along with MRSA swab and these cultures showing no growth to date with the exception of sputum being positive for Laura albicans. Repeat x-ray completed 08/22/22 continues to show persistent bilateral infiltrates with left greater than right. On 08/24/22 was noted the patient's d-dimer began increasing and was 9.30 at this time. Secondary to increasing d-dimer, discussed with pharmacy and guidelines recommending increasing Lovenox dose to 0.5 mg/kg and orders were placed at this time. Patient was not showing any improvement only further deterioration, having a very poor prognosis. Patient was on AirVO 15 L (60 L/95%) in addition to 100% O2 via NRB at 15L. Patient was a DO NOT RESUSCITATE and did not want to be on BiPAP or intubation. Patient's condition continued to deteriorate and on the evening of 08/27/22 patient's family was at bedside and per patient's family and patient's request patient was made comfort care only at this time. Per nursing documentation patient with family at bedside with time of pronounced 08/28/22 at 1:10 AM. TIME OF PRONOUNCED 08/28/22 at 1:10 AM. Aditya Jordan NP rendered care for this patient independently, reviewed the findings and plan as documented in the note above. I did not physically speak with or examine the patient on this date. Plan - Discharge Summary Discharge Rx Participant: No New Discharge Prescriptions: No Action amLODIPine [Norvasc] 5 mg PO BID@0800,1999 clonazePAM [KlonoPIN] 0.5 mg PO HS@2000 PRN PRN Reason: Insomnia cloNIDine 0.1 MG/24HR PATCH [Catapres-TTS] 0.1 mg TOPICAL TAY@1999 Magnesium 400 mg PO DAILY@0800 Metoprolol Tartrate 25 mg PO BID@0800,1999 Vitamin E (Dl,Tocopheryl Acet) [Vitamin E] 400 mg PO DAILY@0800 metFORMIN HCL ER [Glucophage XR] 1,500 mg PO W/SUPPER hydroCHLOROthiazide 12.5 mg PO DAILY@0800 hydrALAZINE HCL [Apresoline] 50 mg PO BID@799,1999 Ubidecarenone [Coenzyme Q10] 200 mg PO DAILY@0800 Saw [place] 450mg 450 mg PO DAILY@0800 Garlic 1,000 mg PO DAILY@0800 Cholecalciferol [Vitamin D3 (125 Mcg = 5000 Iu)] 125 mcg PO DAILY@0800 Irbesartan 300 mg PO DAILY@0800 Hydrocortisone Cream [Hydrocortisone 2.5% Cream] 1 applic TOPICAL BID PRN PRN Reason: Rash Rosuvastatin [Crestor] 20 mg PO TAY@0800 Cyanocobalamin (Vitamin B-12) [Vitamin B-12] 3,000 mcg PO DAILY@0800 Alpha Lipoic Acid 200 mg PO DAILY@0800 Fish Oil/Dha/Epa [Fish Oil 1,200 mg Fish Oil] 1 cap PO DAILY@0800 Ascorbic Acid [Vitamin C] 1,500 mg PO DAILY@0800 Discharge Medication List Magnesium 400 mg PO DAILY@0808/29/18 [History] Metoprolol Tartrate 25 mg PO BID@799,199908/29/18 [History] Vitamin E (Dl,Tocopheryl Acet) [Vitamin E] 400 mg PO DAILY@0808/29/18 [History] amLODIPine [Norvasc] 5 mg PO BID@799,199908/29/18 [History] cloNIDine 0.1 MG/24HR PATCH [Catapres-TTS] 0.1 mg TOPICAL TAY@199908/29/18 [History] clonazePAM [KlonoPIN] 0.5 mg PO HS@1999 PRN 08/29/18 [History] Alpha Lipoic Acid 200 mg PO DAILY@0808/09/22 [History] Ascorbic Acid [Vitamin C] 1,500 mg PO DAILY@0808/09/22 [History] Cholecalciferol [Vitamin D3 (125 Mcg = 5000 Iu)] 125 mcg PO DAILY@0800 08/09/22 [History] Cyanocobalamin (Vitamin B-12) [Vitamin B-12] 3,000 mcg PO DAILY@0800 08/09/22 [History] Fish Oil/Dha/Epa [Fish Oil 1,200 mg Fish Oil] 1 cap PO DAILY@0808/09/22 [History] Garlic 1,000 mg PO DAILY@0808/09/22 [History] Hydrocortisone Cream [Hydrocortisone 2.5% Cream] 1 applic TOPICAL BID PRN 08/09/22 [History] Irbesartan 300 mg PO DAILY@0808/09/22 [History] Rosuvastatin [Crestor] 20 mg PO TAY@79908/09/22 [History] Saw [place] 450mg 450 mg PO DAILY@79908/09/22 [History] Ubidecarenone [Coenzyme Q10] 200 mg PO DAILY@79908/09/22 [History] hydrALAZINE HCL [Apresoline] 50 mg PO BID@799,199908/09/22 [History] hydroCHLOROthiazide 12.5 mg PO DAILY@79908/09/22 [History] metFORMIN HCL ER [Glucophage XR] 1,500 mg PO W/SUPPER 08/09/22 [History] Follow up Appointment(s)/Referral(s): Dave Rosas MD [Primary Care Provider] - 1-2 days Discharge Disposition: - Preliminary Cause of Preliminary Cause of : Covid Pneumonia, Pseudomonas pnumonia, respiratory failure with Hypoxia
== END 2022-08-28 07:12 | disposition expired | DRG 177 ==
LOC: SUPCPDRO 15:07 → EC 15:07 → 3SCARD 17:58 → 2SICU 18:38 → 4SSUR 08-13 18:45 → 3SCARD 08-24 04:07
PROVIDERS: ADMIT Internal Medicine; ATTEND Internal Medicine
PROC: 5A0945A Assistance with Respiratory Ventilation, 24-96 Consecutive Hours, High Flow/Velocity Cannula (ICD-10-PCS; principal; 2022-08-09)
PROC: 5A09357 Assistance with Respiratory Ventilation, Less than 24 Consecutive Hours, Continuous Positive Airway Pressure (ICD-10-PCS; 2022-08-09)
PROC: 3E0333Z Introduction of Anti-inflammatory into Peripheral Vein, Percutaneous Approach (ICD-10-PCS; 2022-08-09)
DX: U07.1 COVID-19 (principal); J12.82 Pneumonia due to coronavirus disease 2019; J96.01 Acute respiratory failure with hypoxia; J15.1 Pneumonia due to Pseudomonas; E87.20 Acidosis, unspecified; B37.0 Candidal stomatitis; E11.649 Type 2 diabetes mellitus with hypoglycemia without coma; I10 Essential (primary) hypertension; J43.9 Emphysema, unspecified; E11.65 Type 2 diabetes mellitus with hyperglycemia; E78.5 Hyperlipidemia, unspecified; Z51.5 Encounter for palliative care; Y95 Nosocomial condition; R59.0 Localized enlarged lymph nodes; T38.0X5A Adverse effect of glucocorticoids and synthetic analogues, initial encounter; Z66 Do not resuscitate; Z77.090 Contact with and (suspected) exposure to asbestos; Z28.310 Unvaccinated for COVID-19; J61 Pneumoconiosis due to asbestos and other mineral fibers; Z79.899 Other long term (current) drug therapy; Z79.84 Long term (current) use of oral hypoglycemic drugs; Z87.09 Personal history of other diseases of the respiratory system; Z87.891 Personal history of nicotine dependence
CPT/HCPCS: 36415; 71045; 71275; 80048; 80053; 80202; 82565; 82728; 83036; 83605; 83615; 83735; 84145; 84484; 85025; 85027; 85379; 85384; 85610; 85730; 86140; 87040; 87070; 87077; 87186; 87205; 87502; 87635; 93005; 93970; 94640; 94660; 94667; 94668; 94760; 96374; 96375; 99291